=== PATIENT | female | born 2005 | race Hispanic/Latino ===

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

== ENCOUNTER 2024-01-18 00:04 | Emergency (ER) | payer OTHER ==
[2024-01-18 01:06] LABS: Absolute Eosinophils 0.2 K/uL (0-0.5); Absolute Monocytes 0.4 K/uL (0.1-1.3); Basophils % 0.5 % (0-1.3); Hematocrit 33.8 % (36.0-45.0); Hemoglobin 11.5 g/dL (12.0-15.0); MCH 28.1 pg (27.0-35.0); MCHC 34.1 g/dL (32.0-36.0); MCV 82.6 fL (80-100); MPV 11.4 fL (7.6-11.3); Monocytes % 4.7 % (3.3-12.3); Neutrophils % 57.8 % (41.7-73.7); Nucleated Red Blood Cells % 0.1 % (0-0); Platelets 185 thou/uL (152-406); RBC Red Blood Cell Count 4.09 M/uL (3.86-4.86); Red Cell Distribution Width 14.4 % (12.1-15.2)
[2024-01-18 01:15] LABS: PT Prothrombin Time 11.1 SECONDS (9.4-12.5); PTT, Activated Partial Thromb 35.1 SECONDS (24.3-36.9); Protime INR 0.99
[2024-01-18 01:37] LABS: ALT/SGPT 18 U/L (13-56); AST/SGOT 12 U/L (15-37); Albumin 3.2 g/dL (3.4-5.0); Albumin/Globulin Ratio 0.9 (1.1-1.8); Alkaline Phosphatase 66 U/L (45-117); Anion Gap 6.7 mEq/L (5.0-15.0); BUN Blood Urea Nitrogen 16 mg/dL (7-18); Bicarbonate 27 mEq/L (21-32); Bilirubin Total 0.2 mg/dL (0.2-1.0); Globulin 3.5 g/dL (2.3-3.5); Glomerular Filtration Rate 106 ml/min (=/>90); Glucose Level 108 mg/dL (74-106); Potassium 3.7 mEq/L (3.5-5.1); Protein, Total 6.7 g/dL (6.4-8.2); Sodium Level 139 mEq/L (136-145)
[2024-01-18 01:37] LABS: Barbiturates NEGATIVE (NEGATIVE); Benzodiazepines NEGATIVE (NEGATIVE); Cocaine NEGATIVE (NEGATIVE); METHAMPHETAM NEGATIVE (NEGATIVE); Methadone NEGATIVE (NEGATIVE); Opiates NEGATIVE (NEGATIVE); Phencyclidine NEGATIVE (NEGATIVE); THC Cannibis NEGATIVE (NEGATIVE)
[2024-01-18 01:48] LABS: Bilirubin Direct < 0.2 mg/dL (0-0.2)
--- NOTE | 2024-01-18 01:51 | ER ---
Nurse's Notes [facility] Name: Tere Galindo Age: 18 yrs Sex: Female : 2005 Arrival Date: 01/18/2024 Time: 00:04 Bed 15 Private MD: Diagnosis: Homicidal and suicidal ideations Presentation: 01/17 00:06 Chief complaint: EMS states: patient called for help because she has thoughts of rg5 hurting her aunt and she has also stated suicidal ideation. Coronavirus screen: Vaccine status: Patient reports receiving the 1st dose of the Covid vaccine. Client denies travel out of the [place] in the last 14 days. Ebola Screen: Patient negative for fever greater than or equal to 101.5 degrees Fahrenheit, and additional compatible Ebola Virus Disease symptoms. 00:06 Method Of Arrival: EMS: [facility] 5 00:06 Initial Sepsis Screen: Does the patient meet any 2 criteria? No. Patient's initial rg5 sepsis screen is negative. Does the patient have a suspected source of infection? No. Patient's initial sepsis screen is negative. Risk Assessment: Do you want to hurt yourself or someone else? Patient reports desire/thoughts of hurting themselves or someone else. Provider notified. Onset of symptoms was January 17, 2024. 00:06 Acuity: DWAYNE 3 rg5 Triage Assessment: 00:06 General: Appears in no apparent distress. Behavior is calm, cooperative, appropriate rg5 for age. Pain: Denies pain. EENT: No deficits noted. Neuro: Level of Consciousness is awake, alert, obeys commands, Oriented to person, place, time, Reports suicidal ideation. Cardiovascular: Heart tones S1 S2 Capillary refill < 3 seconds Patient's skin is warm and dry. Rhythm is sinus rhythm. Respiratory: Airway is patent Trachea midline Respiratory effort is even, Respiratory pattern is regular, symmetrical, Breath sounds are clear. GI: Abdomen is round Bowel sounds present X 4 quads. : No signs and/or symptoms were reported regarding the genitourinary system. Derm: Skin is intact, Skin is dry, Skin is normal. Musculoskeletal: Circulation, motion, and sensation intact. Range of motion: intact in all extremities. 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 - Infectious Disease History:: Denies. - Social history:: Smoking status: Patient/guardian denies using tobacco, the patient reports quitting approximately 1 years ago. Screenin:06 [facility] ED Fall Risk Assessment (Adult) History of falling in the last 3 months, rg5 including since admission No falls in past 3 months (0 pts) Confusion or Disorientation No (0 pts) Intoxicated or Sedated No (0 pts) Impaired Gait No (0 pts) Mobility Assist Device Used No (0 pt) Altered Elimination No (0 pt) Score/Fall Risk Level 0 - 2 = Low Risk Oriented to surroundings, Maintained a safe environment, Hourly rounding (assess needs \\T\\ fall precautionary measures) done. Abuse screen: Denies threats or abuse. Nutritional screening: No deficits noted. Tuberculosis screening: No symptoms or risk factors identified. Assessment: 01:39 Reassessment: Patient and/or family updated on plan of care and expected duration. Pain rg5 level reassessed. Patient is alert, oriented x 3, equal unlabored respirations, skin warm/dry/pink. Respiratory: Airway is patent Trachea midline Respiratory effort is even, unlabored, Respiratory pattern is regular, symmetrical. 02:30 Reassessment: No changes from previously documented assessment. Patient and/or family rg5 updated on plan of care and expected duration. Pain level reassessed. 02:30 Respiratory: Airway is patent Trachea midline Respiratory effort is even, unlabored, rg5 Respiratory pattern is regular, symmetrical. 04:30 Reassessment: No changes from previously documented assessment. Patient and/or family rg5 updated on plan of care and expected duration. Pain level reassessed. General: Appears in no apparent distress. comfortable. Respiratory: Respiratory effort is even, unlabored, Respiratory pattern is regular, symmetrical. 06:24 Reassessment: Patient and/or family updated on plan of care and expected duration. Pain rg5 level reassessed. Patient is alert, oriented x 3, equal unlabored respirations, skin warm/dry/pink. General: Appears in no apparent distress. comfortable. Respiratory: Airway is patent Trachea midline Respiratory effort is even, unlabored, Respiratory pattern is regular, symmetrical. 07:00 Reassessment: Patient appears in no apparent distress at this time. Pt sleeping w/ ph equal and unlabored respirations. 12:14 Reassessment: Patient appears in no apparent distress at this time. Patient and/or ph family updated on plan of care and expected duration. Pain level reassessed. Patient is alert, oriented x 3, equal unlabored respirations, skin warm/dry/pink. [facility] at bedside, pt transferred to [facility]. Psych: 00:06 [place] Suicide Severity Screening: In the past month, have you wished you were rg5 or wished you could go to sleep and not wake up? Patient responds "yes." "In the past month, have you actually had any thoughts of killing yourself?" Patient responds "yes." "In your lifetime, have you ever done anything, started to do anything, or prepared to do anything to end your life?" Patient responds "yes." Patient reports suicidal intent within 3 past months. 00:06 Subjective: Having thoughts of homicide. Homicidal plan is to hurting with any tools in rg5 the house Homicidal thoughts directed towards her aunt. Objective: Patient is cooperative, Speech is normal, Affect is flat. Interventions: Removed personal items and placed in bag. Patient placed in hospital gown. Searched person for dangerous items. Urine collected and sent for urine drug test. Belonging list filled out. Safety Checks: Personal items have been removed. Door is open. Pt denies substance abuse. 00:06 Commitment: Patient will be a voluntary commitment. [facility] Vital Signs: 00:06 BP 110 / 60; Pulse 76; Resp 17; Temp 98(O); Pulse Ox 100% on R/A; Weight 102.06 kg; rg5 Height 5 ft. 4 in. ; Pain 0/10; 00:06 BP 110 / 60; Pulse 76; Resp 17; Pulse Ox 100% on R/A; Pain 0/10; rg5 01:00 BP 115 / 65; Pulse 70; Resp 17; Pulse Ox 100% on R/A; Pain 0/10; rg5 12:15 BP 112 / 68; Pulse 72; Resp 18; Temp 97.2; Pulse Ox 99% on R/A; ph 00:06 Body Mass Index 38.62 (102.06 kg, 162.56 cm) - Percentile 98.2 % rg5 00:06 Pain Scale: Adult rg5 00:06 Pain Scale: Adult 5 01:00 Pain Scale: Adult [facility] ED Course: 00:05 Patient arrived in ED. jj6 00:06 No provider procedures requiring assistance completed. rg5 00:06 Arm band placed on right wrist. EKG completed in triage. Results shown to MD. rg5 00:06 Patient has correct armband on for positive identification. Bed in low position. Call [facility] light in reach. Side rails up X 1. 00:07 Alexandru Ibarra RN is Primary Nurse. rg5 00:08 Kam Riggs MD is Attending Physician. ec2 00:30 EKG done, by ED staff, reviewed by Kam Riggs MD. oe 00:46 Inserted saline lock: 22 gauge in right antecubital area, using aseptic technique. oe Blood collected. Flushed with 10 mL NS. 01:05 Warm blanket given. oe 01:05 Diet: Patient given snack. Patient given juice. oe 01:27 Triage completed. rg5 01:39 No apparent distress. Resting quietly. Appears to be sleeping. rg5 02:30 No apparent distress. Resting quietly. Appears to be sleeping. rg5 04:03 Patient information faxed to [facility] . ty 04:28 [facility] called for nurse to nurse. ty 04:30 No apparent distress. Resting quietly. Appears restless. transfer approval from [facility] receiving facility. 04:30 Approval given by Tommy Vee. ty 05:13 [facility] contacted for patient transport. ty 05:15 Chey from [facility] called to notify of emergent situation delaying patient ty transfer. 05:16 [facility] contacted to disregard due to placement being postoned. ty 09:12 jaki spoke with Caitie with [facility], they are currently on lock down due to bd having intranet issues and will not be able to take the pt for several hours. 09:15 faxed chart to [facility]. bd 12:16 IV discontinued, intact, bleeding controlled, No redness/swelling at site. Pressure ph dressing applied. Administered Medications: No medications were administered Medication: 00:06 VIS not applicable for this client. rg5 Outcome: 01:50 ER care complete, transfer ordered by . ec2 12:15 Transferred by ground EMS [facility]. Note: [facility] ph 12:15 Condition: good 12:15 Instructed on the need for transfer, 12:16 Patient left the ED. ph Signatures: Linnea Garcia Patricia, RN RN ph To Torres Jennifer jKam Amaral MD MD ec2 Pasquale Powers Rommel, RN RN rg5 Corrections: (The following items were deleted from the chart) 01:04 01:02 EKG done, by ED staff, reviewed by Kam deluna oe 05:19 05:13 [facility] called for patient transport ty ty 05:20 05:13 [facility] called for patient transport ty ty
--- NOTE | 2024-01-18 01:51 | EDPHYS ---
Physician Documentation [facility] Name: Tere Galindo Age: 18 yrs Sex: Female : 2005 Arrival Date: 01/18/2024 Time: 00:04 Bed 15 Private MD: ED Physician Kam Riggs HPI: 01/17 00:47 This 18 yrs old Female presents to ER via Unassigned with complaints of ec2 Homicidal Ideation. 00:47 Patient arrives today for reported homicidal and suicidal ideation. Patient reports ec2 that she feels like killing her aunt. Patient reports that she has had this thoughts on and off before, no specific exacerbating factor today. Patient also reports suicidal ideation. Reports that she has not tried to harm herself. Patient reports otherwise no complaints history of bipolar as well as schizophrenia. 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 - Infectious Disease History:: Denies. - Social history:: Smoking status: Patient/guardian denies using tobacco, the patient reports quitting approximately 1 years ago. ROS: 00:49 Constitutional: as per hpi ec2 Exam: 00:49 Constitutional: GEN: NAD Head: atraumatic Eyes: EOMI Ears: External ears are ec2 normal. CV: regular rate LUNGS: no respiratory distress ABD: non-distended SKIN: no evidence of rashes MSK: no evidence of trauma. Psych: Cooperative individual who endorses homicidality and suicidality Vital Signs: 00:06 BP 110 / 60; Pulse 76; Resp 17; Temp 98(O); Pulse Ox 100% on R/A; Weight 102.06 kg; rg5 Height 5 ft. 4 in. ; Pain 0/10; 00:06 BP 110 / 60; Pulse 76; Resp 17; Pulse Ox 100% on R/A; Pain 0/10; rg5 01:00 BP 115 / 65; Pulse 70; Resp 17; Pulse Ox 100% on R/A; Pain 0/10; rg5 12:15 BP 112 / 68; Pulse 72; Resp 18; Temp 97.2; Pulse Ox 99% on R/A; ph 00:06 Body Mass Index 38.62 (102.06 kg, 162.56 cm) - Percentile 98.2 % rg5 00:06 Pain Scale: Adult rg5 00:06 Pain Scale: Adult rg5 01:00 Pain Scale: Adult rg5 MDM: 00:11 Medical Screening Exam initiated ec2 00:49 Data reviewed: vital signs. ED course: Patient arrives today for thoughts of harming ec2 self and others. Examination remarkable for cooperative individual was otherwise in no acute distress with a reassuring examination who endorses homicide and suicidality. EKG obtained, independently reviewed and interpreted by me, shows normal sinus rhythm, rate 64, no acute ST segment elevations, intervals are nonactionable. Will obtain toxic workup. Will attempt to transfer to psychiatric facility.. 01:50 ED course: Labs are nonactionable. Patient appropriate for transfer. . ec2 01/17 00:09 Order name: Acetaminophen; Complete Time: ec2 01/17 00:09 Order name: Basic Metabolic Panel; Complete Time: ec2 01/17 00:09 Order name: CBC with Diff; Complete Time: ec2 01/17 00:09 Order name: ETOH Level; Complete Time: ec2 01/17 00:09 Order name: Hepatic Function; Complete Time: ec2 01/17 00:09 Order name: PT-INR; Complete Time: 50 ec2 01/17 00:09 Order name: Ptt, Activated; Complete Time: ec2 01/17 00:09 Order name: Salicylate; Complete Time: ec2 01/17 00:09 Order name: Urine Drug Screen; Complete Time: :50 ec2 01/17 00:09 Order name: EKG; Complete Time: 00:09 ec2 01/17 00:09 Order name: EKG - Nurse/Tech; Complete Time: 00:53 ec2 01/17 00:09 Order name: IV Saline Lock; Complete Time: 00:53 ec2 01/17 00:09 Order name: Labs collected and sent; Complete Time: 00:54 ec2 01/17 00:09 Order name: Suicide Precautions; Complete Time: 02:03 ec2 01/17 00:09 Order name: Suicide Screening ([place]); Complete Time: 02:03 ec2 Administered Medications: No medications were administered Disposition Summary: 01/18/24 01:50 Transfer Ordered Notes: Transfer Location: [facility] ec2 Reason: Higher level of care ec2 Condition: Stable ec2 Problem: an ongoing problem ec2 Symptoms: are unchanged ec2 Accepting Physician: Glenn Perea(01/18/24 12:16) ph Diagnosis - Homicidal and suicidal ideations ec2 Forms: - Medication Reconciliation Form ec2 - SBAR form ec2 Signatures: Dispatcher [employer] Vanessa Evans RN RN ph Kam Riggs MD MD ec2 Pasquale Powers Rommel, RN RN rg5 Corrections: (The following items were deleted from the chart) 00:09 00:09 ACETAMINOPHEN+C.LAB.BRZ ordered. EDMS EDMS 00:09 00:09 BASIC METABOLIC PANEL+C.LAB.BRZ ordered. EDMS EDMS 00:09 00:09 CBC+H.LAB.BRZ ordered. EDMS EDMS 00:09 00:09 ETHANOL+C.LAB.BRZ ordered. EDMS EDMS 00:09 00:09 HEPATIC FUNCTION+C.LAB.BRZ ordered. EDMS EDMS 00:09 00:09 PROTIME (+INR)+COAG.LAB.BRZ ordered. EDMS EDMS 00:09 00:09 PTT, ACTIVATED+COAG.LAB.BRZ ordered. EDMS EDMS 00:09 00:09 SALICYLATE+C.LAB.BRZ ordered. EDMS EDMS 00:09 00:09 URINE DRUG SCREEN+UC.LAB.BRZ ordered. EDMS EDMS 04:50 01:50 transferring doc ec2 ty 12:16 04:50 Glenn Perea ty ph
[2024-01-18 12:42] VITALS: BP 112/68; TEMP 97.2; O2SAT 99
--- NOTE | 2024-01-19 14:52 | EKG ---
Test Date: 2024-01-18 Test Time: 00:41:30 Mobile Equipment Servicer: CHAN MEASUREMENT RESULTS: Intervals: Rate: 64 KS: 136 QRSD: 86 QT: 416 QTc: 429 [place]: P: 59 KS: 136 QRS: 39 T: 37 INTERPRETIVE STATEMENTS: Normal sinus rhythm with sinus arrhythmia Normal ECG Compared to ECG 12/30/2023 12:22:46 No significant changes Electronically Signed On 01-19-24 14:47:00 CDT by Ciaran Douglas
== END 2024-01-18 12:16 ==
LOC: ER 00:04
DX: R45.850 Homicidal ideations (principal); R45.851 Suicidal ideations; F20.9 Schizophrenia, unspecified
CPT/HCPCS: 36415; 80048; 80076; 80143; 80179; 80307; 82077; 85025; 85610; 85730; 93005

== ENCOUNTER 2024-06-20 15:50 | Emergency (ER) | payer OTHER ==
--- OUTSIDE RECORDS SUMMARY | 2024-06-20 15:55 | XMS REPORT | Continuity of Care Document ---
Author Name Unknown Address [address] [facility] [address] [place] [address] [facility] Address [address] [facility] [address] [place] [address] Care Team Providers Care Government Instructor Name Role Phone Gerry SHERYLArronNahum Primary Care Physician Raymond Suarez Attending Clinician Unavailable Johanne MORA, Maida Thomas Attending Clinician UnavailElmer Doyle NP Attending Clinician [phone] ELMER MADDOX Attending Clinician Unavailable ELMER MADDOX Attending Clinician Unavailable Unknown, Attending Attending Clinician UnavailRUBA Red Attending Clinician UnavailDAVID Rosales Attending Clinician Unavailable SUGEY LOJA Attending Clinician Unavailable Jessie Reinoso LCSW Attending Clinician [phone] David Norris Attending Clinician [phone], [facility] Attending Clinician Unavailable UMU SAGASTUME Attending Clinician UnavailMaximus Reese Attending Clinician Unavailable Umu Sagastume MD Attending Clinician [phone] Doctor Unassigned, [place] Attending Clinician U AKBAR Pina Attending Clinician Unavailable YESIKA HANDY Attending Clinician Unavailable JANAY JULIEN Attending Clinician Unavailable Janay Julien MD Attending Clinician [phone] MEHRAN BENNETT Attending Clinician Unavaila [facility] Pcp, Patient Does Not Have A Attending Clinician Physician, No Primary or Family Admitting Clinic morro Unavailable UMU SAGASTUME Admitting Clinician Unavaildavid valdivia Payers Payer Name Policy Type Policy Number Effective Date Expirati on Date Source MEDICAID CI [id number] [facility] D [id number] [facility] [id number] 2023 00:00:00 [facility] [id number] 2022 00:00:00 Problems Condition Name Condition Details Condition Category Status Onset Date Resolution Date Last Treatment Date Treating Clinician Comments Source ALTERED MENTAL STATE ALTERED MENTAL STATE Active 09/22/2023 Lauren Jones Diagnosis Active 09-21 00:00: 00 2023-10-01 12:58:00 Montserrat Jones Allergies, Adverse Reactions, Alerts Allergy Name Allergy Type Status Severity Reaction(s) Onset Date Inactive Date Treating Clinician Comments Source No Known Allergie s DA Active U 2019-03 00:00: 00 [facility] No Known Allergie s DA Active U 2018-03 0 00:00: 00 [facility] NO KNOWN ALLERGIE S Drug Class Active [facility] Social History Social Habit Start Date Stop Date Quantity Comments Source Gender [facility] Alcoholic beverage intake 2023-11-25 00:00:00 2023-11-25 00:00:00 Ex-drinker (finding) [facility] Alcohol intake 2023-01-04 00:00:00 2023-01-04 00:00:00 Ex-drinker (finding) [facility] Exposure to SARS-CoV-2 (event) 2022-07-10 00:00:00 2022-07-20 10:33:00 Not sure [facility] History of Social function 2022-07-03 00:00:00 2022-07-03 00:00:00 [facility] Tobacco use and exposure 2022-07-03 00:00:00 2022-07-03 00:00:00 Smokeless tobacco non-user [facility] Sex assigned at 2004 00:00:00 2005 00:00:00 [facility] Smoking Status Start Date Stop Date Source Social History [facility] Never smoked tobacco [facility] Medications Ordered Medication Name Filled Medication Name Start Date Stop Date Current Medication? Ordering Clinician Indication Dosage Frequency Signature (SIG) Comments Components Source levothyroxi ne 50 mcg tablet - 00:00: 00 Yes 1mcg Familia Ahuja sertraline 100 mg tablet - 00:00: 00 Yes 1mg Familia Ahuja trazodone 50 mg tablet - 00:00: 00 Yes 1mg Familia Ahuja buspirone 10 mg tablet - 00:00: 00 Yes 1mg Familia Ahuja oxcarbazepi ne 300 mg tablet - 00:00: 00 Yes 1mg Familia Ahuja oxcarbazepi ne 600 mg tablet 3- 00:00: 00 Yes 1mg Familia Ahuja Abilify 20 mg tablet - 00:00: 00 Yes 1mg Familia Ahuja sertraline 100 mg tablet 2- 00:00: 00 Yes 1mg Familia Donal Ahuja trazodone 50 mg tablet 2- 00:00: 00 Yes 1mg Familia Ahuja buspirone 10 mg tablet 2- 00:00: 00 Yes 1mg Familia Ahuja oxcarbazepi ne 300 mg tablet 2- 00:00: 00 Yes 1mg Familia Ahuja oxcarbazepi ne 600 mg tablet 2- 00:00: 00 Yes 1mg Familia Ahuja Abilify 20 mg tablet 2- 00:00: 00 Yes 1mg Familia Ahjua levothyroxi ne 50 mcg tablet 1- 00:00: 00 Yes 1mcg Familia Ahuja levothyroxi ne 50 mcg tablet - 00:00: 00 Yes 1mcg Familia Ahuja clindamycin HCl 300 mg capsule - 00:00: 00 Yes 1mg Familia Ahuja sertraline 100 mg tablet 1- 00:00: 00 Yes 1mg Familia Ahuja trazodone 50 mg tablet 1- 00:00: 00 Yes 1mg Familia Ahuja buspirone 10 mg tablet 1- 00:00: 00 Yes 1mg Familia Ahuja oxcarbazepi ne 300 mg tablet 1- 00:00: 00 Yes 1mg Familia Ahuja oxcarbazepi ne 600 mg tablet 1-05 00:00: 00 Yes 1mg Familia Ahuja Abilify 20 mg tablet 1- 00:00: 00 Yes 1mg Familia Ahuja levothyroxi ne 25 mcg tablet 2023-03 2- 00:00: 00 Yes 1mcg Familia Ahuja sertraline 100 mg tablet 2023-03 2- 00:00: 00 Yes 1mg Familia Ahuja trazodone 50 mg tablet 2023-03 2- 00:00: 00 Yes 1mg Familia Ahuja buspirone 10 mg tablet 2023-03 2- 00:00: 00 Yes 1mg Familia Ahuja oxcarbazepi ne 300 mg tablet 2023-03 2- 00:00: 00 Yes 1mg Familia Ahuja oxcarbazepi ne 600 mg tablet 2023-03 2- 00:00: 00 Yes 1mg Familia Ahuja Abilify 20 mg tablet 2023-03 2-08 00:00: 00 Yes 1mg Familia Ahuja sertraline 100 mg tablet 2023-03 0- 00:00: 00 Yes 1mg Familia Ahuja Abilify 20 mg tablet 2023-03 0- 00:00: 00 Yes 1mg Familia Ahuja oxcarbazepi ne 150 mg tablet 2023-03 0-25 00:00: 00 Yes 1mg Familia Ahuja trazodone 50 mg tablet 2023-03 0- 00:00: 00 Yes 1mg Familia Ahuja buspirone 5 mg tablet 2023-03 0 00:00: 00 Yes 1mg Familia Ahuja albuterol sulfate HFA 90 mcg/actuati on aerosol inhaler 2023-03 00:00: 00 Yes 1mcg/ac tuation Familia Ahuja levothyroxi ne 25 mcg tablet 2023-03 00:00: 00 Yes 1mcg Familia Ahuja sertraline 100 mg tablet 2023-03 0 00:00: 00 Yes 1mg Familia Ahuja oxcarbazepi ne 150 mg tablet 2023-03 0 00:00: 00 Yes 1mg Familia Ahuja trazodone 50 mg tablet 2023-03 0 00:00: 00 Yes 1mg Familia Ahuja Abilify 15 mg tablet 2023-03 0 00:00: 00 Yes 1mg Familia Ahuja buspirone 5 mg tablet 2023-03 0 00:00: 00 Yes 1mg Familia Ahuja sulfamethox azole-trime thoprim (BACTRIM DS) 800-160 mg per tablet 11-25 00:00: 00 Yes [id number] 1{tbl} Take 1 tablet by mouth in the morning and 1 tablet in the evening. [facility] ascorbic acid (VITAMIN C ORAL) 11-24 19:58: 18 Yes .6mg Take by mouth. [facility] haloperidoL 10 mg tablet 11-24 19:58: 18 Yes 10mg Take 1 tablet by mouth. [facility] hydrOXYzine 50 mg capsule 11-24 19:58: 18 Yes 50mg Take 1 capsule by mouth 3 (three) times daily as needed for Itching. [facility] Zinc 50 mg Tab 11-24 19:58: 18 Yes Take by mouth. [facility] OLANZapine 10 mg tablet 11-24 19:58: 18 Yes 10mg Take 1 tablet by mouth in the morning. [facility] sulfamethox azole-trime thoprim (BACTRIM DS) 800-160 mg per tablet 11-24 00:00: 00 11-25 00:00 :00 No [id number] 1{tbl} Take 1 tablet by mouth in the morning and 1 tablet in the evening. Do all this for 7 days. [facility] mupirocin 2 % topical ointment 11-23 00:00: 00 Yes 1% Familia Ahuja hydroxyzine HCl 25 mg tablet 11-16 00:00: 00 Yes mg Familia Donal Ahuja sertraline 100 mg tablet 11-16 00:00: 00 Yes 1mg Familia Donal Ahuja aripiprazol e 10 mg tablet 11-16 00:00: 00 Yes 1mg Familia Ahuja ARIPiprazol e 10 mg tablet 11-16 00:00: 00 Yes 10mg Take 1 tablet by mouth at bedtime. [facility] hydroxyzine HCl 25 mg tablet 10-15 00:00: 00 Yes mg Familia Donal Ahuja sertraline 100 mg tablet 10-15 00:00: 00 Yes 1mg Familia Donal Ahuja aripiprazol e 10 mg tablet 10-15 00:00: 00 Yes 1mg Familia Donal Ahuja sertraline 100 mg tablet 09-30 00:00: 00 Yes mg Familia Donal Ahuja aripiprazol e 10 mg tablet 09-30 00:00: 00 Yes mg Familia Donal Ahuja aripiprazol e 5 mg tablet 09-21 00:00: 00 Yes 1mg Familia Ahuja trazodone 50 mg tablet 09-21 00:00: 00 Yes 51mg Familia Ahuja fluoxetine 20 mg capsule 09-21 00:00: 00 Yes 1mg Familia Ahuja TAKE ONE TABLET BY MOUTH UP TO THREE TIMES A DAY FOR ANXIETY AND SLEEP NEEDED 2022-03 00:00: 00 Yes Familia Ahuja TAKE 1 CAPSULE ONCE DAILY IN THE EVENING. 2022-03 00:00: 00 11-23 00:00 :00 No 625 Familia Ahuja TAKE 1 TABLET AT BEDTIME. 2022-03 00:00: 00 11-23 00:00 :00 No 2 Familia Ahuja OLANZapine 10 mg tablet 2022-03 10:53: 46 Yes 10mg Take 1 tablet by mouth in the morning. [facility] OLANZapine 20 mg tablet 2022-03 10:53: 32 01-04 00:00 :00 No 20mg Take 1 tablet by mouth at bedtime. [facility] metFORMIN 1,000 mg 24 hr tablet 2022-03 10:36: 20 01-04 00:00 :00 No 1000mg Take 1 tablet by mouth in the morning and 1 tablet in the evening. Take with meals. [facility] hydrOXYzine 50 mg capsule 2022-03 10:36: 19 Yes 50mg Take 1 capsule by mouth 3 (three) times daily as needed for Itching. [facility] OLANZapine 10 mg tablet 2022-03 10:36: 17 01-04 00:00 :00 No 10mg Take 1 tablet by mouth in the morning. [facility] polyethylen e glycol 3350 (MIRALAX) 17 gram/dose powder 2022-03 10:35: 58 01-04 00:00 :00 No 17g Take 17 g by mouth in the morning. [facility] prazosin HCl (PRAZOSIN ORAL) 2022-03 10:35: 55 01-04 00:00 :00 No 8mg Take 8 mg by mouth in the morning. [facility] traZODone 50 mg tablet 2023-1 0-16 10:35: 49 01-04 00:00 :00 No 50mg Take 1 tablet by mouth at bedtime. [facility] traZODone 100 mg tablet 2022-03 10:35: 45 01-04 00:00 :00 No 100mg Take 1 tablet by mouth at bedtime. [facility] divalproex ER 500 mg 24 hr tablet 2022-03 10:35: 11 01-04 00:00 :00 No 1000mg Take 2 tablets by mouth every 24 (twenty-fo ur) hours. [facility] TAKE 1 TABLET BY MOUTH EVERYDAY AT BEDTIME 2022-03 00:00: 00 Yes Familia Ahuja TAKE ONE CAPSULE BY MOUTH AT BEDTIME 2022-03 00:00: 00 11-23 00:00 :00 No 2 Familia hAuja OLANZA/FLUO X 6-25MG 12-07 00:00: 00 Yes Familia Ahuja TAKE ONE TABLET BY MOUTH UP TO THREE TIMES A DAY FOR ANXIETY AND SLEEP NEEDED 12-07 00:00: 00 11-23 00:00 :00 No 50 Familia Ahuja TAKE 1 CAPSULE ONCE DAILY IN THE EVENING. 12-07 00:00: 00 11-23 00:00 :00 No 625 Familia Ahuja LYBALVI 20-10MG 09-04 00:00: 00 Yes Familia Ahuja TAKE 4 CAPSULES BY MOUTH AT BEDTIME FOR NIGHTMARES 09-03 00:00: 00 Yes Familia Ahuja TAKE 1 TO 2 TABLETS BY MOUTH AT BEDTIME 09-03 00:00: 00 Yes Familia Ahuja TAKE 1 TABLET BY MOUTH TWICE A DAY FOR MOOD 09-03 00:00: 00 Yes Familia Ahuja TAKE 3 TABLETS BY MOUTH AT BEDTIME 09-03 00:00: 00 Yes Familia Ahuja HALOPERIDOL 10MG 09-03 00:00: 00 11-23 00:00 :00 No Familia Donal Ahuja levothyroxi ne (SYNTHROID) 75 mcg tablet 07-23 00:00: 00 Yes [id number] 75ug Take 1 tablet by mouth every morning. [facility] LEVOTHYROXI N 75MCG 07-23 00:00: 00 11-23 00:00 :00 No Familia Ahuja BUPROP 24 XL 300MG 07-23 00:00: 00 11-23 00:00 :00 No Familia Ahuja buPROPion XL (WELLBUTRIN XL) 300 mg 24 hr tablet 07-23 00:00: 00 01-04 00:00 :00 No [id number] 300mg Take 1 tablet by mouth in the morning. [facility] buPROPion XL (WELLBUTRIN XL) 150 mg 24 hr tablet 07-23 00:00: 00 07-23 00:00 :00 No [id number] 150mg Take 1 tablet by mouth in the morning and 1 tablet in the evening. [facility] traZODone 50 mg tablet 07-20 10:40: 37 Yes 50mg Take 1 tablet by mouth at bedtime. [facility] traZODone 100 mg tablet 07-20 10:39: 45 Yes 100mg Take 1 tablet by mouth at bedtime. [facility] hydrOXYzine 50 mg capsule 07-20 10:39: 45 Yes 50mg Take 1 capsule by mouth 3 (three) times daily as needed for Itching. [facility] OLANZapine 20 mg tablet 07-20 10:37: 48 Yes 20mg Take 1 tablet by mouth at bedtime. [facility] OLANZapine 10 mg tablet 07-20 10:37: 48 Yes 10mg Take 1 tablet by mouth in the morning. [facility] LYBALVI 20-10MG 07-20 00:00: 00 11-23 00:00 :00 Rama Ahuja TAKE 4 CAPSULES BY MOUTH AT BEDTIME FOR NIGHTMARES 07-14 00:00: 00 11-23 00:00 :00 Rama Ahuja TAKE 1 TO 2 TABLETS BY MOUTH AT BEDTIME 07-14 00:00: 00 11-23 00:00 :00 No Familia Ahuja DIVALPROEX 500MG DR 07-14 00:00: 00 11-23 00:00 :00 No Familia Ahuja TAKE 3 TABLETS BY MOUTH AT BEDTIME 07-14 00:00: 00 11-23 00:00 :00 No Familia Ahuja LYBALVI 20-10 MG 07-14 00:00: 00 11-23 00:00 :00 No Familia Ahuja metFORMIN 1,000 mg 24 hr tablet 07-03 09:37: 07 Yes 1000mg Take 1 tablet by mouth in the morning and 1 tablet in the evening. Take with meals. [facility] divalproex ER 500 mg 24 hr tablet 07-03 09:37: 07 Yes 1000mg Take 2 tablets by mouth every 24 (twenty-fo ur) hours. [facility] prazosin HCl (PRAZOSIN ORAL) 07-03 09:17: 01 Yes 8mg Take 8 mg by mouth in the morning. [facility] OLANZapine (ZYPREXA) 20 mg tablet 07-03 09:17: 01 Yes 20mg Take 1 tablet by mouth at bedtime. [facility] OLANZapine (ZYPREXA) 10 mg tablet 07-03 09:17: 01 Yes 10mg Take 1 tablet by mouth in the morning. [facility] desmopressi n acetate (DDAVP ORAL) 07-03 09:17: 01 Yes .6mg Take 0.6 mg by mouth in the morning. [facility] haloperidoL 10 mg tablet 07-03 09:17: 01 Yes 10mg Take 1 tablet by mouth. [facility] traZODone 100 mg tablet 07-03 09:17: 01 Yes 100mg Take 1 tablet by mouth at bedtime. [facility] hydrOXYzine (VISTARIL) 50 mg capsule 07-03 09:17: 01 Yes 50mg Take 1 capsule by mouth 3 (three) times daily as needed for Itching. [facility] Zinc 50 mg Tab 07-03 09:17: 01 Yes Take by mouth. [facility] Zinc 50 mg Tab 07-03 09:17: 01 Yes Take by mouth. [facility] polyethylen e glycol 3350 (MIRALAX) 17 gram/dose powder 07-03 09:12: 49 Yes 17g Take 17 g by mouth in the morning. [facility] TAKE 1 TABLET BY MOUTH EVERY DAY IN THE MORNING 07-03 00:00: 00 11-23 00:00 :00 No Familia Ahuja levothyroxi ne 100 mcg tablet 07-03 00:00: 00 07-23 00:00 :00 No [id number] 100ug Take 1 tablet by mouth every morning. [facility] Dose Unknown 09-26 00:00: 00 Yes Familia Ahuja Dose Unknown 09-26 00:00: 00 Yes Familia Ahuja Dose Unknown 09-26 00:00: 00 Yes Familia Ahuja Wellbutrin XL 150 mg 24 hr tablet, extended release 09-11 00:00: 00 Yes 1mg Familia Ahuja Dose Unknown 09-11 00:00: 00 Yes Familia Ahuja Dose Unknown 09-11 00:00: 00 Yes Familia Ahuja Abilify 10 mg tablet 08-16 00:00: 00 Yes 1mg Familia Ahuja benztropine 0.5 mg tablet 08-16 00:00: 00 Yes 1mg Familia Ahuja clonidine HCl 0.1 mg tablet 08-16 00:00: 00 Yes 1mg Familia Ahuja Prozac 10 mg capsule 08-16 00:00: 00 Yes 1mg Familia Ahuja Abilify 5 mg tablet 08-02 00:00: 00 Yes 1mg Familia Ahuja benztropine 0.5 mg tablet 08-02 00:00: 00 Yes 1mg Familia Ahuja risperidone 1 mg tablet 08-02 00:00: 00 Yes 1mg Familia Ahuja clonidine HCl 0.1 mg tablet 08-02 00:00: 00 Yes 1mg Familia Ahuja Prozac 10 mg capsule 08-02 00:00: 00 Yes 1mg Familia hAuja Dose Unknown 07-03 00:00: 00 Yes Familia Ahuja risperidone 0.5 mg tablet 07-03 00:00: 00 Yes 1mg Familia Ahuja benztropine 0.5 mg tablet 07-03 00:00: 00 Yes 1mg Familia Ahuja clonidine HCl 0.1 mg tablet 07-03 00:00: 00 Yes 1mg Familia Ahuja risperidone 2 mg tablet 07-03 00:00: 00 Yes 1mg Familia Ahuja Dose Unknown 07-03 00:00: 00 Yes Familia Ahuja Prozac 10 mg capsule 07-03 00:00: 00 Yes 1mg Familia Ahuja Abilify 10 mg tablet 05-28 00:00: 00 Yes 1mg Familia Ahuja Depakote ER 250 mg tablet,exte nded release 05-28 00:00: 00 Yes 1mg Familia Ahuja guanfacine 1 mg tablet 05-28 00:00: 00 Yes 15mg Familia Ahuja Depakote 500 mg tablet,shireen yed release 05-28 00:00: 00 Yes 1mg Familia Ahuja Depakote ER 250 mg tablet,exte nded release 04-30 00:00: 00 Yes 1mg Familia Ahuja guanfacine 1 mg tablet 04-30 00:00: 00 Yes 15mg Familia Ahuja Abilify 10 mg tablet 04-30 00:00: 00 Yes 1mg Familia hAuja Depakote 500 mg tablet,shireen yed release 04-30 00:00: 00 Yes 1mg Familia Ahuja levothyroxi ne 100 mcg tablet 04-10 00:00: 00 07-03 00:00 :00 No 100ug Take 1 tablet by mouth every morning. [facility] ABILIFY 10 mg tablet - 00:00: 00 07-03 00:00 :00 No [facility] Abilify 10 mg tablet 03-26 00:00: 00 Yes 1mg Familia Ahuja guanfacine 1 mg tablet 03-26 00:00: 00 Yes 15mg Familia Ahuja Depakote ER 250 mg tablet,exte nded release 03-26 00:00: 00 Yes 1mg Familia Ahuja Depakote 500 mg tablet,shireen yed release 03-26 00:00: 00 Yes 1mg Familia Ahuja divalproex ER 250 mg 24 hr tablet 03-26 00:00: 00 07-03 00:00 :00 No [facility] divalproex 500 mg EC tablet 03-26 00:00: 00 07-03 00:00 :00 No 1000mg Take 2 tablets by mouth. [facility] guanFACINE 1 mg tablet 03-26 00:00: 00 07-03 00:00 :00 No [facility] Abilify 10 mg tablet 2015-03 00:00: 00 Yes 1mg Familia Ahuja Depakote ER 250 mg tablet,exte nded release 2015-03 00:00: 00 Yes 1mg Familia Ahuja guanfacine 1 mg tablet 2015-03 00:00: 00 Yes 15mg Familia Ahuja Depakote 500 mg tablet,shireen yed release 2015-03 00:00: 00 Yes 1mg Familia Ahuja Synthroid 50 mcg tablet 2015-03 00:00: 00 Yes 1mcg Familia Ahuja Immunizations Ordered Immunization Name Filled Immunization Name Date Status Comments Source Influenza, seasonal, inj Influenza, seasonal, inj 2019-01-23 00:00:00 Completed Familia Ahuja influenza, injectable influenza, injectable 2017-02-04 00:00:00 Completed Familia Ahuja HPV9 HPV9 2017-02-04 00:00:00 Completed Familia Ahuja HPV9 HPV9 2016-01-30 00:00:00 Completed Familia Ahuja meningococcal MCV4P meningococcal MCV4P 00:00:00 Completed Familia Ahuja Tdap Tdap 2016-01-30 00:00:00 Completed Familia Ahuja IPV IPV 2008-07-09 00:00:00 Completed Familia Ahuja DTaP, unspecified formul DTaP, unspecified formul 2008-07-09 00:00:00 Completed Familia Ahuja Hep A, ped/adol, 2 dose Hep A, ped/adol, 2 dose 2008-03-07 00:00:00 Completed Familia Ahuja Hib (PRP-T) Hib (PRP-T) 2006-07-02 00:00:00 Completed Familia Ahuja MMRV MMRV 2006-07-02 00:00:00 Completed Familia Ahuja pneumococcal conjugate P pneumococcal conjugate P 2006-07-02 00:00:00 Completed Familia Ahuja DTaP-Hep B-IPV DTaP-Hep B-IPV 2006-07-02 00:00:00 Completed Familia Ahuja Hep A, ped/adol, 2 dose Hep A, ped/adol, 2 dose 2005-09-10 00:00:00 Completed Familia Donal Ahuja Hib (PRP-T) Hib (PRP-T) 2005-09-10 00:00:00 Completed Faimlia Ahuja MMR MMR 2005-09-10 00:00:00 Completed Familia Donal Ahuja pneumococcal conjugate P pneumococcal conjugate P 2005-09-10 00:00:00 Completed Familia Donal Ahuja varicella varicella 2005-09-10 00:00:00 Completed Familia Ahuja DTaP-Hep B-IPV DTaP-Hep B-IPV 2005-09-10 00:00:00 Completed Familia Donal Seymour Hib (PRP-T) Hib (PRP-T) 2005-05-13 00:00:00 Completed Familia Donal Seymour pneumococcal conjugate P pneumococcal conjugate P 2005-05-13 00:00:00 Completed Familia Donal Seymour DTaP-Hep B-IPV DTaP-Hep B-IPV 2005-05-13 00:00:00 Completed Familia Donal Seymour Hib (PRP-T) Hib (PRP-T) 2004 00:00:00 Completed Familia Donal Seymour pneumococcal conjugate P pneumococcal conjugate P 2004 00:00:00 Completed Familia Donal Seymour DTaP-Hep B-IPV DTaP-Hep B-IPV 2004 00:00:00 Completed Familia Donal Ahuja Hib (PRP-T) Hib (PRP-T) 2004 00:00:00 Completed Familia Ahuja pneumococcal conjugate P pneumococcal conjugate P 2004 00:00:00 Completed Familia Ahuja DTaP-Hep B-IPV DTaP-Hep B-IPV 2004 00:00:00 Completed Familia Ahuja Hep B, adolescent or ped Hep B, adolescent or ped 2004 00:00:00 Completed Familia Ahuja diphtheria/pertussis , acel/tetanus adult Unknown Completed Montserrat Jones diphtheria/pertussis , acel/tetanus adult Unknown Completed Montserrat Jones diphtheria/pertussis , acel/tetanus adult Unknown Completed Montserrat Jones Vital Signs Vital Name Observation Time Observation Value Comments S dwaine Systolic blood pressure 2023-11-26 00:58:00 118 mm[Hg] [facility] Diastolic blood pressure 2023-11-26 00:58:00 73 mm[Hg] [facility] Heart rate 2023-11-26 00:58:00 77 /min [facility] Body temperature 2023-11-26 00:58:00 36.39 Ramona [facility] Respiratory rate 2023-11-26 00:58:00 18 /min [facility] Body weight 2023-11-26 00:58:00 102.059 kg [facility] Oxygen saturation in Arterial blood by Pulse oximetry 2023-11-26 00:58:00 98 /min [facility] Systolic blood pressure 2023-01-04 15:24:00 131 mm[Hg] [facility] Diastolic blood pressure 2023-01-04 15:24:00 76 mm[Hg] [facility] Heart rate 2023-01-04 15:24:00 83 /min [facility] Body temperature 2023-01-04 15:24:00 37.17 Ramona [facility] Respiratory rate 2023-01-04 15:24:00 16 /min [facility] Body weight 2023-01-04 15:24:00 96.798 kg [facility] Oxygen saturation in Arterial blood by Pulse oximetry 2023-01-04 15:24:00 97 /min [facility] Systolic blood pressure 2022-12-04 18:17:00 125 mm[Hg] [facility] Diastolic blood pressure 2022-12-04 18:17:00 82 mm[Hg] [facility] Heart rate 2022-12-04 18:17:00 92 /min [facility] Body temperature 2022-12-04 18:17:00 35.94 Ramona [facility] Body height 2022-12-04 18:17:00 160 cm [facility] Body weight 2022-12-04 18:17:00 95.346 kg [facility] BMI 2022-12-04 18:17:00 37.24 kg/m2 [facility] Body mass index (BMI) [Percentile] Per age and sex 2022-12-04 18:17:00 98.18 % [facility] Oxygen saturation in Arterial blood by Pulse oximetry 2022-12-04 18:17:00 97 /min [facility] Systolic blood pressure 2022-07-20 15:33:00 118 mm[Hg] [facility] Diastolic blood pressure 2022-07-20 15:33:00 79 mm[Hg] [facility] Heart rate 2022-07-20 15:33:00 88 /min [facility] Body temperature 2022-07-20 15:33:00 36 Ramona [facility] Respiratory rate 2022-07-20 15:33:00 16 /min [facility] Body height 2022-07-20 15:33:00 162.6 cm [facility] Body weight 2022-07-20 15:33:00 106.958 kg [facility] BMI 2022-07-20 15:33:00 40.47 kg/m2 [facility] Body mass index (BMI) [Percentile] Per age and sex 2022-07-20 15:33:00 98.86 % [facility] Oxygen saturation in Arterial blood by Pulse oximetry 2022-07-20 15:33:00 98 /min [facility] Systolic blood pressure 2022-07-03 14:08:00 102 mm[Hg] [facility] Diastolic blood pressure 2022-07-03 14:08:00 71 mm[Hg] [facility] Heart rate 2022-07-03 14:08:00 96 /min [facility] Body temperature 2022-07-03 14:08:00 36.44 Ramona [facility] Respiratory rate 2022-07-03 14:08:00 18 /min [facility] Body height 2022-07-03 14:08:00 162.6 cm [facility] Body weight 2022-07-03 14:08:00 103.148 kg [facility] BMI 2022-07-03 14:08:00 39.03 kg/m2 [facility] Body mass index (BMI) [Percentile] Per age and sex 2022-07-03 14:08:00 98.68 % [facility] Oxygen saturation in Arterial blood by Pulse oximetry 2022-07-03 14:08:00 100 /min [facility] BP Systolic 2024-06-10 13:21:00 106 mm[Hg] Step hen F Seymour BP Diastolic 2024-06-10 13:21:00 73 mm[Hg] Doc phen F Seymour Weight Measured 2024-06-10 13:21:00 241.40 pounds Familia F Seymour Height Measured 2024-06-10 13:21:00 60.00 inches Familia F Seymour Body Temperature 2024-06-10 13:21:00 97.70 degrees Familia F Seymour Heart Rate 2024-06-10 13:21:00 96.00 /min Mikki en F Seymour Respiratory Rate 2024-06-10 13:21:00 18.00 /min Familia F Seymour BP Systolic 2024-04-08 10:34:00 103 mm[Hg] Step hen F Seymour BP Diastolic 2024-04-08 10:34:00 71 mm[Hg] Doc phen F Seymour Weight Measured 2024-04-08 10:34:00 241.00 pounds Familia F Seymour Height Measured 2024-04-08 10:34:00 60.00 inches Familia F Seymour Body Temperature 2024-04-08 10:34:00 98.10 degrees Familia F Seymour Heart Rate 2024-04-08 10:34:00 83.00 /min Mikki en F Seymour Respiratory Rate 2024-04-08 10:34:00 18.00 /min Familia F Seymour BP Systolic 2024-04-08 10:15:00 103 mm[Hg] Step hen F Seymour BP Diastolic 2024-04-08 10:15:00 71 mm[Hg] Doc phen F Seymour Weight Measured 2024-04-08 10:15:00 241.00 pounds Familia F Seymour Height Measured 2024-04-08 10:15:00 60.00 inches Familia F Seymour Body Temperature 2024-04-08 10:15:00 98.10 degrees Familia F Seymour Heart Rate 2024-04-08 10:15:00 83.00 /min Mikki en F Seymour Respiratory Rate 2024-04-08 10:15:00 18.00 /min Familia F Seymour BP Systolic 2024-01-03 09:32:00 113 mm[Hg] Step hen F Seymour BP Diastolic 2024-01-03 09:32:00 75 mm[Hg] Doc phen F Seymour Weight Measured 2024-01-03 09:32:00 227.80 pounds Familia F Seymour Height Measured 2024-01-03 09:32:00 60.00 inches Familia F Seymour Body Temperature 2024-01-03 09:32:00 97.80 degrees Familia F Seymour Heart Rate 2024-01-03 09:32:00 91.00 /min Mikki en F Seymour Respiratory Rate 2024-01-03 09:32:00 18.00 /min Familia F Seymour BP Systolic 2023-11-24 17:50:00 104 mm[Hg] Step hen F Seymour BP Diastolic 2023-11-24 17:50:00 70 mm[Hg] Doc phen F Seymour Weight Measured 2023-11-24 17:50:00 224.80 pounds Familia F Seymour Height Measured 2023-11-24 17:50:00 60.00 inches Familia F Seymour Body Temperature 2023-11-24 17:50:00 98.30 degrees Familia F Seymour Heart Rate 2023-11-24 17:50:00 81.00 /min Mikki en F Seymour Respiratory Rate 2023-11-24 17:50:00 18.00 /min Familia F Seymour Respitory Rate 2023-09-23 13:54:01 [facility] Systolic (mm Hg) 2023-09-23 13:53:56 [facility] Diastolic (mm Hg) 2023-09-23 13:53:56 [facility] Heart Rate 2023-09-23 13:53:56 [facility] Temperature Oral (F) 2023-09-23 13:53:39 98.6 F [facility] Temperature Oral (F) 2023-09-23 08:25:00 98.4 F [facility] Heart Rate 2023-09-23 08:25:00 [facility] Respitory Rate 2023-09-23 08:25:00 [facility] Systolic (mm Hg) 2023-09-23 08:25:00 [facility] Diastolic (mm Hg) 2023-09-23 08:25:00 [facility] Temperature Oral (F) 2023-09-23 03:25:00 97.9 F [facility] Heart Rate 2023-09-23 03:25:00 [facility] Respitory Rate 2023-09-23 03:25:00 [facility] Systolic (mm Hg) 2023-09-23 03:25:00 [facility] Diastolic (mm Hg) 2023-09-23 03:25:00 [facility] Height 2023-09-22 20:28:00 160.02 cm [facility] BMI Calculated 2023-09-22 20:28:00 [facility] Weight 2023-09-22 20:28:00 [facility] BP Systolic 2016-05-28 13:15:00 107 mm[Hg] Step hen F Seymour BP Diastolic 2016-05-28 13:15:00 55 mm[Hg] Doc phen F Seymour Weight Measured 2016-05-28 13:15:00 139.80 pounds Familia F Seymour Height Measured 2016-05-28 13:15:00 60.00 inches Familia F Seymour Body Temperature 2016-05-28 13:15:00 97.70 degrees Familia F Seymour Heart Rate 2016-05-28 13:15:00 95.00 /min Mikki en F Seymour Respiratory Rate 2016-05-28 13:15:00 16.00 /min Familia F Seymour BP Systolic 2016-04-30 09:35:00 138 mm[Hg] Step hen F Seymour BP Diastolic 2016-04-30 09:35:00 78 mm[Hg] Doc phen F Seymour Weight Measured 2016-04-30 09:35:00 134.40 pounds Familia F Seymour Height Measured 2016-04-30 09:35:00 60.00 inches Familia F Seymour Body Temperature 2016-04-30 09:35:00 98.40 degrees Familia F Seymour Heart Rate 2016-04-30 09:35:00 105.00 /min Step hen F Seymour Respiratory Rate 2016-04-30 09:35:00 18.00 /min Familia F Seymour BP Systolic 2016-02-20 10:15:00 100 mm[Hg] Step hen F Seymour BP Diastolic 2016-02-20 10:15:00 58 mm[Hg] Doc phen F Seymour Weight Measured 2016-02-20 10:15:00 117.40 pounds Familia F Seymour Height Measured 2016-02-20 10:15:00 60.00 inches Familia F Seymour Body Temperature 2016-02-20 10:15:00 98.20 degrees Familia F Seymour Heart Rate 2016-02-20 10:15:00 74.00 /min Mikki en F Seymour Respiratory Rate 2016-02-20 10:15:00 18.00 /min Familia F Seymour Procedures Procedure Date / Time Performed Performing Clinician Source FREE T4 2023-01-04 16:21:00 [facility] T3 UPTAKE 2023-01-04 16:21:00 [facility] THYROID STIMULATING HORMONE 2023-01-04 16:21:00 [facility] COMP. METABOLIC PANEL (52196) 2023-01-04 16:21:00 [facility] LIPID PANEL (36853)(TOTAL CHOLESTEROL, TRIGLYCERIDES, HDL) 2023-01-04 16:21:00 [facility] CBC WITH DIFF 2023-01-04 16:21:00 [facility] GLYCOSYLATED HEMOGLOBIN (A1C) 2023-01-04 16:21:00 David Pacheco [facility] URINALYSIS 2023-01-04 16:21:00 David Pacheco [facility] FREE T3 2023-01-04 16:21:00 David Pacheco [facility] US HEAD NECK 2022-08-24 15:47:55 Umu Sagastume [facility] INSURANCE CORRESPONDENCE 2022-08-11 05:01:00 Doctor Unassigned, [place] [facility] CORTISOL AM 2022-07-20 16:10:00 Umu Sagastume [facility] PROLACTIN 2022-07-20 16:10:00 Umu Sagastume [facility] THYROID STIMULATING HORMONE 2022-07-20 16:10:00 Umu Sagastume [facility] COMP. METABOLIC PANEL (10327) 2022-07-20 16:10:00 Umu Sagastume [facility] LIPID PANEL (15251)(TOTAL CHOLESTEROL, TRIGLYCERIDES, HDL) 2022-07-20 16:10:00 Umu Sagastume [facility] ADRENOCORTICOTROPIC HORMONE 2022-07-20 16:10:00 Umu Sagastume [facility] THYROID PEROXIDASE (TPO) AB 2022-07-20 16:10:00 Umu Sagastume [facility] URINALYSIS 2022-07-03 15:13:00 David Pacheco [facility] FREE T4 2022-07-03 15:10:00 David Pacheco [facility] THYROID STIMULATING HORMONE 2022-07-03 15:10:00 David Pacheco [facility] COMP. METABOLIC PANEL (24032) 2022-07-03 15:10:00 David Pacheco [facility] LIPID PANEL (98176)(TOTAL CHOLESTEROL, TRIGLYCERIDES, HDL) 2022-07-03 15:10:00 David Pacheco [facility] CBC WITH DIFF 2022-07-03 15:10:00 David Pacheco [facility] GLYCOSYLATED HEMOGLOBIN (A1C) 2022-07-03 15:10:00 David Pacheco [facility] ASSIGNMENT OF BENEFITS 2022-07-03 13:42:33 Doctor Unassigned, [place] [facility] REFERRAL- REQUEST/RESPONSE 2019-07-21 05:01:00 Doctor Unassigned, [place] [facility] Encounters Start Date/Time End Date/Time Encounter Type Admission Type Attending [facility] Care Department Encounter ID Source 2024-02-04 21:24:13 Emergency [facility] [id number] [facility] ent 2023-09-30 08:55:00 Outpatient PRINCE MORRISON [id number] [facility] 2022-02-17 11:58:59 Outpatient [facility] [id number] [facility] 2021-06-14 08:42:26 Outpatient [facility] LS [id number] [facility] 2024-06-18 08:01:48 2024-06-18 08:01:48 Outpatient SFA SFA [id number] Familia Ahuja 2024-06-15 17:06:44 2024-06-15 17:06:44 Outpatient SFA SFA [id number] Familia Ahuja 2024-06-10 13:21:16 2024-06-10 13:21:16 Outpatient SFA SFA [id number] Familia Ahuja 2024-06-10 00:00:00 2024-06-10 00:00:00 Outpatient Visit SFA 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 Familia Ahuja 2024-06-01 17:33:24 2024-06-01 17:33:24 Outpatient SFA SFA [id number] Familia Mansfield Seymour 2024-05-22 12:36:53 2024-05-22 12:36:53 Outpatient SFA SFA [id number] Familia Mansfield Seymour 2024-05-18 10:25:59 2024-05-18 10:25:59 Outpatient SFA SFA [id number] Familia F Seymour 2024-05-12 09:49:23 2024-05-12 09:49:23 Outpatient SFA SFA [id number] Familia Ahuja 2024-04-23 14:25:11 2024-04-23 14:25:11 Outpatient SFA SFA [id number] Familia Ahuja 2024-04-13 08:33:30 2024-04-13 08:33:30 Outpatient SFA SFA [id number] Familia Ahuja 2024-04-08 10:27:33 2024-04-08 10:27:33 Outpatient SFA SFA [id number] Familia Ahuja 2024-04-08 00:00:00 2024-04-08 00:00:00 Outpatient Visit SFA [id number] Familia Ahuja 2024-03-26 13:56:31 2024-03-26 13:56:31 Outpatient SFA SFA [id number] Familia Ahuja 2024-03-20 07:58:40 2024-03-20 07:58:40 Outpatient SFA SFA [id number] Familia Ahuja 2024-02-27 10:23:57 2024-02-27 10:23:57 Outpatient SFA SFA [id number] Familia Ahuja 2024-02-16 08:09:42 2024-02-16 08:09:42 Outpatient SFA SFA [id number] Familia Ahuja 2024-02-04 21:05:00 2024-02-04 22:33:00 Emergency EM Raymond Suarez [facility] [id number] [facility] 2024-01-14 17:36:33 2024-01-14 17:36:33 Outpatient SFA SFA [id number] Familia Ahuja 2024-01-13 08:05:41 2024-01-13 08:05:41 Outpatient SFA SFA [id number] Familia Ahuja 2024-01-03 09:33:41 2024-01-03 09:33:41 Outpatient SFA SFA [id number] Familia Ahuja 2024-01-03 00:00:00 2024-01-03 00:00:00 Outpatient Visit SFA [id number] Familia Ahuja 2024-01-01 00:00:00 2024-01-01 17:17:13 Nurse Triage Maida Whiting Jenny L [facility] 1.2.840.114 350.1.13.10 4.2.7.2.686 [id number] [facility] 2023-12-29 11:01:31 2023-12-29 11:01:31 Outpatient S[facility] [id number] Familia Ahuja 2023-12-24 08:57:41 2023-12-24 08:57:41 Outpatient [facility] [id number] Familia Ahuja 2023-11-25 00:00:00 2023-11-26 10:07:04 Telephone Elmer Maddox [facility] 1.2.840.114 350.1.13.10 4.2.7.2.686 [id number] [facility] 2023-11-25 19:40:00 2023-11-25 20:54:59 Outpatient R ELMER MADDOX SHAHNAZ [facility] [id number] [facility] 2023-11-25 19:40:00 2023-11-25 20:54:59 Urgent Care Elmer Maddox Unknown, Attending [facility] 1.2.840.114 350.1.13.10 4.2.7.2.686 [id number] [facility] 2023-11-24 17:38:46 2023-11-24 17:38:46 Outpatient S[facility] [id number] Familia Ahuja 2023-11-24 00:00:00 2023-11-24 00:00:00 Outpatient Visit SFA [id number] Familia Ahuja 2023-10-15 11:41:16 2023-10-15 11:41:16 Outpatient [facility] [id number] Familia Ahuja 2023-09-22 15:26:00 2023-09-23 16:35:00 Emergency E RUBA LEBRON [facility] [id number] [facility] 2023-09-20 14:20:45 2023-09-20 14:20:45 Outpatient [facility] [id number] Familia Ahuja 2023-07-06 10:30:00 2023-07-06 10:30:00 Outpatient R DAVID PACHECO [facility] [id number] [facility] 2023-04-07 13:30:00 2023-04-07 13:30:00 Outpatient SUGEY CHAVES [facility] [id number] [facility] 2023-01-08 00:00:00 2023-01-08 00:00:00 Patient Outreach Jessie Reinoso [facility] 1.2.840.114 350.1.13.10 4.2.7.2.686 [id number] [facility] 2023-01-07 00:00:00 2023-01-07 00:00:00 Telephone PachecoDavid [facility] 1.2.840.114 350.1.13.10 4.2.7.2.686 [id number] [facility] 2023-01-04 11:15:00 2023-01-04 11:19:37 Claims Associate Visit 2, Adc Lab Nima Pachecossica [facility] 1.2.840.114 350.1.13.10 4.2.7.2.686 [id number] [facility] 2023-01-04 10:00:00 2023-01-04 11:08:38 Office Visit PachecoDavid [facility] 1.2.840.114 350.1.13.10 4.2.7.2.686 [id number] [facility] 2023-01-04 10:00:00 2023-01-04 11:08:38 Outpatient DAVID CRUZ [facility] [id number] [facility] 2022-12-31 11:12:58 2022-12-31 11:12:58 Outpatient [facility] [id number] Familia Ahuja 2022-12-07 14:24:45 2022-12-07 14:24:45 Outpatient [facility] [id number] Familia Mansfield Seymour 2022-12-04 13:30:00 2022-12-04 14:00:00 Office Visit David Pacheco [facility] 1.2.840.114 350.1.13.10 4.2.7.2.686 [id number] [facility] 2022-12-04 13:30:00 2022-12-04 13:30:00 [facility] [id number] [facility] 2022-12-04 00:00:00 2022-12-04 00:00:00 [facility] 1.2.840.114 350.1.13.10 4.2.7.2.686 [id number] [facility] 2022-11-17 09:30:00 2022-11-17 09:30:00 Outpatient UMU DAVIS [facility] [id number] [facility] 2022-09-25 20:31:00 2022-09-26 20:50:00 Emergency EM Maximus Dodson [facility] [id number] [place] [address] 2022-08-24 09:20:56 2022-08-24 23:59:00 Outpatient UMU DAVIS [facility] [id number] [facility] 2022-08-24 09:20:56 2022-08-24 23:59:00 Hospital Encounter Umu Sagastume [facility] 1.2840.114 350.1.13.10 4.2.7.2.686 [id number] [facility] 2022-08-20 13:36:44 2022-08-20 13:36:44 Outpatient [facility] [id number] Familia Ahuja 2022-08-19 00:00:00 2022-08-19 00:00:00 Telephone David Pacheco [facility] 1.2.840.114 350.1.13.10 4.2.7.2.686 [id number] [facility] 2022-08-11 00:00:00 2022-08-11 00:00:00 [facility] 1.2.840.114 350.1.13.10 4.2.7.2.686 [id number] [facility] 2022-08-11 00:00:00 2022-08-11 00:00:00 Orders Only Doctor Unassigned, [place] [facility] 1.2.840.114 350.1.13.10 4.2.7.2.686 [id number] [facility] 2022-07-23 14:22:37 2022-07-23 14:22:37 Outpatient SFA [facility] [id number] Familia Ahuja 2022-07-23 00:00:00 2022-07-23 00:00:00 Refill Umu Sagastume [facility] 1.2.840.114 350.1.13.10 4.2.7.2.686 [id number] [facility] 2022-07-20 10:30:00 2022-07-20 11:00:00 Office [address] Umu Sagastume [facility] 1.2.840.114 350.1.13.10 4.2.7.2.686 [id number] [facility] 2022-07-20 10:30:00 2022-07-20 10:30:00 Outpatient R UMU SAGASTUME [facility] [id number] [facility] 2022-07-03 10:15:00 2022-07-03 10:30:00 Claims Associate Visit 2, Adc Lab Nima Pachecossica [facility] 1.2.840.114 350.1.13.10 4.2.7.2.686 [id number] [facility] 2022-07-03 08:30:00 2022-07-03 09:55:01 [facility] [id number] [facility] 2022-07-03 08:30:00 2022-07-03 09:55:01 Office Visit David Pacheco [facility] 1.2.840.114 350.1.13.10 4.2.7.2.686 [id number] [facility] 2022-07-03 00:00:00 2022-07-03 00:00:00 Orders Only Doctor Unassigned, [place] [facility] 1.2.840.114 350.1.13.10 4.2.7.2.686 [id number] [facility] 2021-12-12 15:42:00 2021-12-12 15:42:00 Outpatient Betty Santana [facility] [id number] [facility] 2020-02-29 13:30:00 2020-02-29 13:30:00 Outpatient AKBAR HINSON [facility] [id number] [facility] 2019-11-17 14:00:00 2019-11-17 14:00:00 Outpatient R YESIAK HANDY [facility] [id number] [facility] 2019-11-14 10:10:00 2019-11-14 10:10:00 Outpatient Deejay JANAY JULIEN [facility] [id number] [facility] 2019-09-06 13:00:00 2019-09-06 13:00:00 Outpatient Deejay JANAY JULIEN [facility] [id number] [facility] 2019-09-06 00:00:00 2019-09-06 00:00:00 Telephone Janay Julien [facility] 1.2.840.114 350.1.13.10 4.2.7.2.686 [id number] [facility] 2019-07-21 00:00:00 2019-07-21 00:00:00 Orders Only Doctor Unassigned, [place] [facility] 1.2.840.114 350.1.13.10 4.2.7.2.686 [id number] [facility] 2019-06-26 13:20:00 2019-06-26 13:20:00 Outpatient MEHRAN PARIKH [facility] [id number] [facility] 2019-06-23 00:00:00 2019-06-23 00:00:00 Telephone Pcp, Patient Does Not Have A [facility] 1.2840.114 350.1.13.10 4.2.7.2.686 [id number] [facility] Results Test Description Test Time Test Comments Results Result Co mments Source TOXOPLASMA IgM [id number] 00:00:00* Test Item Value Reference Range Interpretation Comme nts TOXOPLASMA AB, IgM (test cod e = 76181) 0.164 INDEX Familia Mansfield AustinTHYROID II PROFILE (TU,T4,FTI,TSH)2024-04-09 23:54:50* Test Item Value Reference Range Interpretation Comme nts T-UPTAKE (test code = 2817) 27.2 % 24.3-39.0 THYROX. BIND. CAPAC. (test code = 70783) 1.2 0.8-1.3 T4 (THYROXINE) (test code = 2819) 3.4 UG/DL 4.5-10.5 L CORRECTED T4 (FTI) (test cod e = 2820) 2.8 UG/DL 4.2-11.6 L TSH, THIRD GENERATION (test code = 2821) >100.000 UIU/ML 0.400-4.100 H TSH, THIRD [id number] 23:54:50* Test Item Value Reference Range Interpretation Comme nts TSH, THIRD GENERATION (test code = 2821) >100.000 UIU/ML 0.400-4.100 H COMPREHENSIVE METABOLIC [id number] 23:54:06* Test Item Value Reference Range Interpretation Comme nts GLUCOSE (test code = 2217) 87 MG/DL 70-99 BUN (test code = 2207) 12 MG/DL 6-20 CREATININE (test code = 2214) 0.75 MG/DL 0.50-1.10 eGFR (2020 CKD-EPI) (test code = 59061) 118 ML/MIN/1.73 >60 CALC BUN/CREAT (test code = 2235) 16 RATIO 6-28 SODIUM (test code = 2231) 137 MEQ/L 133-146 POTASSIUM (test code = 2228) 4.3 MEQ/L 3.5-5.4 CHLORIDE (test code = 2215) 101 MEQ/L 95-107 CARBON DIOXIDE (test code = 2206) 22 MEQ/L 19-31 CALCIUM (test code = 2209) 9.8 MG/DL 8.5-10.5 PROTEIN, TOTAL (test code = 2229) 6.7 G/DL 6.1-8.3 ALBUMIN (test code = 2201) 4.1 G/DL 3.5-5.2 CALC GLOBULIN (test code = 2240) 2.6 G/DL 2.1-3.7 CALC A/G RATIO (test code = 2234) 1.6 RATIO 1.0-2.6 BILIRUBIN, TOTAL (test code = 2207) 0.3 MG/DL <=1.2 ALKALINE PHOSPHATASE (test code = 2204) 73 U/L 41-120 AST (test code = 2218) 15 U/L 9-40 ALT (test code = 2219) 10 U/L 5-40 LIPID [id number] 23:54:06* Test Item Value Reference Range Interpretation Comme nts CHOLESTEROL (test code = 2210) 242 MG/DL <200 H TRIGLYCERIDES (test code = 2232) 101 MG/DL <150 HDL CHOLESTEROL (test code = 2220) 61 MG/DL >39 CALC LDL CHOL (test code = 2237) 160 MG/DL <100 H NOTE: CALCULATED LDL IS BASED ON MELISSA-GUZMAN METHOD WHICHINCLUDES ADJUSTABLE TRIGLYCERIDE:VLDL CHOLESTEROL RATIO.THIS FACTOR VARIES BY MEASURED TRIGLYCERIDE AND NON-HDLCHOLESTEROL CONCENTRATIONS WITH INCREASED CALCULATED LDL SEENIN HIGHER TRIGLYCERIDE OR LOWER NON-HDL SPECIMENS. FOR MOREINFORMATION, SEE CLIENT ANNOUNCEMENT AT [email or web address] RISK RATIO LDL/HDL (test code = 2238) 2.62 RATIO <3.22 HEMOGLOBIN [id number] 05:19:16* Test Item Value Reference Range Interpretation Comme nts HEMOGLOBIN A1c (test code = 03049) 5.3 % 4.2-5.6 UNLESS OTHERWISE INDICATED, ALL TESTING PERFORMED AT [facility] [address] [place] [address] GAR[employer]T ROOM WORKER: FAUSTO BAUMANN M.D. CLIA NUMBER [id number] [place]. [id number] CBC W/AUTO DIFF WITH [id number] 03:45:46* Test Item Value Reference Range Interpretation Comme nts WBC (test code = 1001) 6.2 K/UL 3.5-11.0 RBC (test code = 1002) 4.42 M/UL 3.80-5.40 HEMOGLOBIN (test code = 1003) 12.4 G/DL 11.5-15.5 HEMATOCRIT (test code = 1004) 37.7 % 34.0-45.0 MCV (test code = 1005) 85.3 fL 80.0-99.0 MCH (test code = 1006) 28.1 PG 25.0-33.0 MCHC (test code = 1007) 32.9 G/DL 31.0-36.0 RDW (test code = 1038) 13.0 % 11.5-15.0 NEUTROPHILS (test code = 1008) 59.1 % LYMPHOCYTES (test code = 1010) 32.7 % MONOCYTES (test code = 1011) 5.2 % EOSINOPHILS (test code = 1012) 2.4 % BASOPHILS (test code = 1013) 0.3 % IMMATURE GRANULOCYTES (test code = 1036) 0.3 % NUCLEATED RBCS (test code = 1065) 0.0 /100 WBC'S See_Comment [Automated messa ge] The system which generated this result transmitted reference range: 0.0. The reference range was not used to interpret this result as normal/abnormal. PLATELET COUNT (test code = 1015) 212 K/UL 130-400 ABSOLUTE NEUTROPHILS (test code = 1066) 3.65 K/UL 1.50-7.50 ABSOLUTE LYMPHOCYTES (test code = 1067) 2.02 K/UL 1.00-4.00 ABSOLUTE MONOCYTES (test code = 1068) 0.32 K/UL 0.20-1.00 ABSOLUTE EOSINOPHILS (test code = 1040) 0.15 K/UL 0.00-0.50 ABSOLUTE BASOPHILS (test code = 1069) 0.02 K/UL 0.00-0.20 ABS IMMATURE GRANULOCYTES (test code = 1020) 0.02 K/UL 0.00-0.10 ABS NUCLEATED RBCS (test code = 89936) 0.00 K/UL 0.00-0.11 CBC W/AUTO [id number] 00:00:00* Test Item Value Reference Range Interpretation Comme nts WBC (test code = 1001) 6.2 K/UL RBC (test code = 1002) 4.42 M/UL HEMOGLOBIN (test code = 1003) 12.4 G/DL HEMATOCRIT (test code = 1004) 37.7 % MCV (test code = 1005) 85.3 fL MCH (test code = 1006) 28.1 PG MCHC (test code = 1007) 32.9 G/DL RDW (test code = 1038) 13.0 % NEUTROPHILS (test code = 1008) 59.1 % LYMPHOCYTES (test code = 1010) 32.7 % MONOCYTES (test code = 1011) 5.2 % EOSINOPHILS (test code = 1012) 2.4 % BASOPHILS (test code = 1013) 0.3 % IMMATURE GRANULOCYTES (test code = 1036) 0.3 % NUCLEATED RBCS (test code = 1065) 0.0 /100WBC'S PLATELET COUNT (test code = 1015) 212 K/UL ABSOLUTE NEUTROPHILS (test c ode = 1066) 3.65 K/UL ABSOLUTE LYMPHOCYTES (test c ode = 1067) 2.02 K/UL ABSOLUTE MONOCYTES (test cod e = 1068) 0.32 K/UL ABSOLUTE EOSINOPHILS (test c ode = 1040) 0.15 K/UL ABSOLUTE BASOPHILS (test cod e = 1069) 0.02 K/UL ABS IMMATURE GRANULOCYTES (t est code = 1020) 0.02 K/UL ABS NUCLEATED RBCS (test cod e = 50516) 0.00 K/UL Familia AhujaCOMPREHENSIVE METABOLIC [id number] 00:00:00* Test Item Value Reference Range Interpretation Comme nts GLUCOSE (test code = 2217) 87 MG/DL BUN (test code = 2208) 12 MG/DL CREATININE (test code = 2214) 0.75 MG/DL eGFR (2020 CKD-EPI) (test code = 76897) 118 ML/MIN/1.73 CALC BUN/CREAT (test code = 2235) 16 RATIO SODIUM (test code = 2231) 137 MEQ/L POTASSIUM (test code = 2228) 4.3 MEQ/L CHLORIDE (test code = 2215) 101 MEQ/L CARBON DIOXIDE (test code = 2206) 22 MEQ/L CALCIUM (test code = 2209) 9.8 MG/DL PROTEIN, TOTAL (test code = 2229) 6.7 G/DL ALBUMIN (test code = 2201) 4.1 G/DL CALC GLOBULIN (test code = 2240) 2.6 G/DL CALC A/G RATIO (test code = 2234) 1.6 RATIO BILIRUBIN, TOTAL (test code = 2207) 0.3 MG/DL ALKALINE PHOSPHATASE (test code = 2204) 73 U/L AST (test code = 2218) 15 U/L ALT (test code = 2219) 10 U/L [facility] AustinLIPID [id number] 00:00:00* Test Item Value Reference Range Interpretation Comme nts CHOLESTEROL (test code = 2210) 242 MG/DL TRIGLYCERIDES (test code = 2232) 101 MG/DL HDL CHOLESTEROL (test code = 2220) 61 MG/DL CALC LDL CHOL (test code = 2237) 160 MG/DL RISK RATIO LDL/HDL (test cod e = 2238) 2.62 RATIO Familia AhujaTHYROID II PROFILE (TU, T4, T7, TSH)2024-04-09 00:00:00* Test Item Value Reference Range Interpretation Comme emily T-UPTAKE (test code = 2817) 27.2 % THYROX. BIND. CAPAC. (test code = 69551) 1.2 T4 (THYROXINE) (test code = 2819) 3.4 UG/DL CORRECTED T4 (FTI) (test cod e = 2820) 2.8 UG/DL TSH, THIRD GENERATION (test code = 2821) >100.000 UIU/ML Familia AhujaTSH, THIRD [id number] 00:00:00* Test Item Value Reference Range Interpretation Comme emily TSH, THIRD GENERATION (test code = 2821) >100.000 UIU/ML Familia AhujaHEMOGLOBIN A1c [ADDED]2024-04-09 00:00:00* Test Item Value Reference Range Interpretation Comme emily HEMOGLOBIN A1c (test code = 75509) 5.3 % Familia [id number] 22:30:00* Test Item Value Reference Range Interpretation Comme emily LIPASE (test code = LIP) 55 UNITS/L 23-300 N BASIC METABOLIC [id number] 22:30:00* Test Item Value Reference Range Interpretation Comme nts SODIUM (test code = NA) 136 MMOL/L 137-145 L POTASSIUM (test code = K) 3.5 MMOL/L 3.5-5.1 N CHLORIDE (test code = CL) 105 MMOL/L 98-107 N CARBON DIOXIDE (test code = CO2) 23 MMOL/L 22-30 N ANION GAP (test code = GAP) 12 MMOL/L 14-24 L GLUCOSE (test code = GLU) 105 MG/DL 74-106 N BLOOD UREA NITROGEN (test code = BUN) 17 MG/DL 7-17 N GLOMERULAR FILTRATION RATE (test code = GFR) > 60 The Glomerular Filtration Rate is a calculated parameterbased on serum Creatinine, patient age and sex. GFR valuesless than 60 mL/min/1.73 square meters are indicative ofChronic Kidney Disease. Values less than 15 mL/min/1.73square meters indicate Kidney failure. The calculation forGFR is based on the CKD-EPI (2020) calculation. This formulais race indifferent and is the recommended formula for GFRby the National Kidney Foundation for Adults.The GFR will not calculate if the sex is unknown or if thepatient's age is <18 years. CREATININE (test code = CREAT) 0.70 MG/DL 0.52-1.04 N CALCIUM (test code = CA) 9.9 MG/DL 8.4-10.2 N HEPATIC FUNCTION [id number] 22:30:00* Test Item Value Reference Range Interpretation Comme nts TOTAL PROTEIN (test code = PROT) 7.7 G/DL 6.3-8.2 N [facility] [place] has made us aware of newinformation regarding the potential interference ofEltrombopag (a bone marrow stimulant used to treatthrombocytonmenia and aplastic anemia) with specific assayson the Replenishs 5600 of which Total Protein is one of thoseassays performed in our lab.Interference testing performed at Ortho determined thatEltrombopag does interfere with Vitros Total Protein asfollowsEltrombopag Interference for Vitros Product Total Protein: Eltrombopag Max Observed Avg. BiasConcentration Concentration Concentration 2.5 mg/dl 6.0 g/dl +0.41 +0.34 3.5 mg/dl 6.0 g/dl +0.50 +0.45 5 mg/dl 6.0 g/dl +0.73 +0.65 2.5 mg/dl 8.0 g/dl +0.44 +0.41 3.5 mg/dl 8.0 g/dl +0.55 +0.52 5 mg/dl 8.0 g/dl +0.86 +0.77 ALBUMIN (test code = ALB) 4.5 G/DL 3.5-5.0 N BILIRUBIN TOTAL (test code = BILT) 0.4 MG/DL 0.2-1.3 N Eltrombopag Inte rference for Vitros Product TBil, BuBc: Assay Eltrombopag Analyte/ Max Observed Avg. Bias Concentration Concentration Concentration TBil 7mg/dl TBil/ 1.2mg/dl +0.23mg.dl +0.20mg/dlBuBc 3.5mg/dl Bu/0.8mg/dl +0.25mg/dl +0.24mg/dlBuBc 7 mg/dl Bu/14.2mg/dl +0.38mg/dl +0.25mg/dlBuBc 5mg/dl Bc/0mg/dl +0.25mg/dl +0.15mg/dlBuBc 3.5mg/dl Bc/2.8mg/dl +0.25mg/dl +0.23mg/dl BILIRUBIN DIRECT (test code = BILD) 0.0 MG/DL 0.0-0.3 N Eltrombopag Inte rference for Vitros Product TBil, BuBc: Assay Eltrombopag Analyte/ Max Observed Avg. Bias Concentration Concentration Concentration TBil 7mg/dl TBil/ 1.2mg/dl +0.23mg.dl +0.20mg/dlBuBc 3.5mg/dl Bu/0.8mg/dl +0.25mg/dl +0.24mg/dlBuBc 7 mg/dl Bu/14.2mg/dl +0.38mg/dl +0.25mg/dlBuBc 5mg/dl Bc/0mg/dl +0.25mg/dl +0.15mg/dlBuBc 3.5mg/dl Bc/2.8mg/dl +0.25mg/dl +0.23mg/dl SGOT/AST (test code = AST) 22 UNITS/L 14-36 N SGPT/ALT (test code = ALT) 16 UNITS/L 0-34 N ALKALINE PHOSPHATASE (test code = ALKP) 74 UNITS/L 38-126 N HCG SERUM [id number] 22:28:00* Test Item Value Reference Range Interpretation Comme nts HCG SERUM QUAL (test code = HCGQL) NEGATIVE NEGATIVE URINALYSIS [id number] 22:27:00* Test Item Value Reference Range Interpretation Comme nts UA COLOR (test code = COLU) Light-Yellow YELLOW UA APPEARANCE (test code = APPU) Clear CLEAR UA GLUCOSE DIPSTICK (test code = DGLUU) Normal MG/DL NORMAL UA BILIRUBIN DIPSTICK (test code = BILU) Negative MG/DL NEGATIVE UA KETONE DIPSTICK (test code = KETU) Negative MG/DL NEGATIVE UA SPECIFIC GRAVITY (test code = SGU) 1.029 1.003-1.030 N UA BLOOD DIPSTICK (test code = ANGELIC) Negative Ángel/mm3 NEGATIVE UA PH DIPSTICK (test code = ELAINE) 7.0 5.0-9.0 N UA PROTEIN DIPSTICK (test code = PROU) Negative MG/DL NEGATIVE UA UROBILINIOGEN DIPSTICK (test code = URO) Normal MG/DL NORMAL UA NITRITE DIPSTICK (test code = EDOUARD) Negative NEGATIVE UA LEUKOCYTE ESTERASE DIPSTICK (test code = LEUU) Negative /mm3 NEGATIVE UA RBC (test code = RBCU) 0-3 RBC/HPF 0-3 UA WBC (test code = XWBCU) 0-3 WBC/HPF 0-5 UA BACTERIA (test code = BACU) RARE NONE A UA SQUAMOUS CELLS (test code = SQU) 6-15 #/HPF FEW/HPF UA MUCUS (test code = MUCU) Rare #/LPF NONE SOURCE OF URINE: CLEAN CATCHUR HCG [id number] 22:27:00* Test Item Value Reference Range Interpretation Comme nts UR HCG QUAL (test code = HCGQLU) NEGATIVE NEGATIVE SOURCE OF URINE: CLEAN CATCHCBC W/O [id number] 22:17:00* Test Item Value Reference Range Interpretation Comme nts WHITE BLOOD CELL (test code = WBC) 8.0 K/MM3 3.8-9.8 N RED BLOOD CELL (test code = RBC) 4.57 M/MM3 3.58-4.97 N HEMOGLOBIN (test code = HGB) 12.7 G/DL 11.2-14.9 N HEMATOCRIT (test code = HCT) 38.0 % 33.2-43.5 N MEAN CELL VOLUME (test code = MCV) 83 fL 80.7-99.1 N MEAN CELL HGB (test code = MCH) 27.8 pg 27.0-34.1 N MEAN CELL HGB CONCETRATION (test code = MCHC) 33.4 % 32.2-35.7 N RED CELL DISTRIBUTION WIDTH (test code = RDW) 13.2 % 12.1-15.2 N PLATELET COUNT (test code = PLT) 224 K/MM3 129-368 N NEUTROPHIL # (test code = NT#) 5.32 K/mm3 2.0-7.6 N IMMATURE GRANULOCYTE # (test code = IG#) 0.01 x10 3/uL 0-0.03 N LYMPHOCYTE # (test code = LY#) 2.18 K/mm3 1.0-3.8 N MONOCYTE # (test code = MO#) 0.37 K/mm3 0.1-0.8 N EOSINOPHIL # (test code = EO#) 0.11 K/mm3 0.0-0.2 N BASOPHIL # (test code = BA#) 0.03 K/mm3 0.0-0.2 N NUCLEATED RBC # (test code = NRBC#) 0.00 K/mm3 0.0-0.1 N [id number] 19:54:00* Test Item Value Reference Range Interpretation Comme nts Coronavirus (COVID-19) TARAH (test code = Coronavirus (COVID-19) TARAH) Not Detected 8(09/23/23 2:54 PM) [id number] 22:47:00* Test Item Value Reference Range Interpretation Comme nts U Amph Scr (test code = U Amph Scr) Negative *NA*(09/22/23 5:47 PM) U Fany Scr (test code = U Fany Scr) Negative *NA*(09/22/23 5:47 PM) U Benzodiaz Scr (test code = U Benzodiaz Scr) Negative *NA*(09/22/23 5:47 PM) U Cocaine Scr (test code = U Cocaine Scr) Negative *NA*(09/22/23 5:47 PM) U Cannab Scr (test code = U Cannab Scr) Negative *NA*(09/22/23 5:47 PM) U Opiate Scr (test code = U Opiate Scr) Negative *NA*(09/22/23 5:47 PM) U Phencyclidine Scr (test code = U Phencyclidine Scr) Negative *NA*(09/22/23 5:47 PM) UDS Note (test code = UDS Note) See Note 2*NA*(09/22/23 5:47 PM) [facility] [id number] 22:47:00* Test Item Value Reference Range Interpretation Comme nts U Amph Scr (test code = U Amph Scr) Negative *NA*(09/22/23 5:47 PM) U Fany Scr (test code = U Fany Scr) Negative *NA*(09/22/23 5:47 PM) U Benzodiaz Scr (test code = U Benzodiaz Scr) Negative *NA*(09/22/23 5:47 PM) U Cocaine Scr (test code = U Cocaine Scr) Negative *NA*(09/22/23 5:47 PM) U Cannab Scr (test code = U Cannab Scr) Negative *NA*(09/22/23 5:47 PM) U Opiate Scr (test code = U Opiate Scr) Negative *NA*(09/22/23 5:47 PM) U Phencyclidine Scr (test code = U Phencyclidine Scr) Negative *NA*(09/22/23 5:47 PM) UDS Note (test code = UDS Note) See Note 2*NA*(09/22/23 5:47 PM) [facility]2024-07-03 21:10:00* Test Item Value Reference Range Interpretation Comme nts Glucose Lvl (test code = Glucose Lvl) 82 70-99 BUN (test code = BUN) 17 7-22 Creatinine Lvl (test code = Creatinine Lvl) 0.86 0.50-1.40 Sodium Lvl (test code = Sodium Lvl) 136 135-145 Potassium Lvl (test code = P otassium Lvl) 3.7 3.5-5.1 Chloride Lvl (test code = Chloride Lvl) 106 95-109 CO2 (test code = CO2) 24 24-32 Calcium Lvl (test code = Calcium Lvl) 9.4 8.5-10.5 Total Protein (test code = T otal Protein) 7.8 6.4-8.4 Albumin Lvl (test code = Albumin Lvl) 3.9 3.5-5.0 ALT (test code = ALT) 19 <=65 AST (test code = AST) 11 <=37 Alk Phos (test code = Alk Phos) 67 39-136 Bili Total (test code = Bili Total) 1.0 0.2-1.3 AGAP (test code = AGAP) 9.7 10.0-20.0 B/C Ratio (test code = B/C Ratio) 20 1 6-25 Globulin (test code = Globulin) 3.9 2.7-4.2 A/G Ratio (test code = A/G Ratio) 1.0 1 0.7-1.6 eGFR (test code = eGFR) 99 [id number] 21:10:00* Test Item Value Reference Range Interpretation Comme nts Glucose Lvl (test code = Glucose Lvl) 82 70-99 BUN (test code = BUN) 17 7-22 Creatinine Lvl (test code = Creatinine Lvl) 0.86 0.50-1.40 Sodium Lvl (test code = Sodium Lvl) 136 135-145 Potassium Lvl (test code = Potassium Lvl) 3.7 3.5-5.1 Chloride Lvl (test code = Chloride Lvl) 106 95-109 CO2 (test code = CO2) 24 24-32 Calcium Lvl (test code = Calcium Lvl) 9.4 8.5-10.5 Total Protein (test code = Total Protein) 7.8 6.4-8.4 Albumin Lvl (test code = Albumin Lvl) 3.9 3.5-5.0 ALT (test code = ALT) 19 <=65 AST (test code = AST) 11 <=37 Alk Phos (test code = Alk Phos) 67 39-136 Bili Total (test code = Bili Total) 1.0 0.2-1.3 AGAP (test code = AGAP) 9.7 10.0-20.0 B/C Ratio (test code = B/C Ratio) 20 1 6-25 Globulin (test code = Globulin) 3.9 2.7-4.2 A/G Ratio (test code = A/G Ratio) 1.0 1 0.7-1.6 eGFR (test code = eGFR) 99 Acetaminoph Lvl (test code = Acetaminoph Lvl) (09/22/23 4:10 PM) 10-20 Ethanol Lvl (test code = Ethanol Lvl) no gt Etoh (%) (test code = Etoh (%)) no gt Salicylate Lvl (test code = Salicylate Lvl) no gt <=30.0 hCG Tot (test code = hCG Tot) no gt [place] [id number] 21:10:00* Test Item Value Reference Range Interpretation Comme nts hCG Tot (test code = hCG Tot) [facility] gt [id number] 21:10:00* Test Item Value Reference Range Interpretation Comme nts WBC X 10x3 (test code = WBC X 10x3) 8.61 4.15-10.551 03 NRBC % (test code = NRBC %) 0.0 <=0.0100 RBC X 10x6 (test code = RBC X 10x6) 4.49 3.74-5.2210 6 Hgb (test code = Hgb) 12.6 10.8-14.8 Hct (test code = Hct) 38.1 33.9-45.4 MCV (test code = MCV) 84.9 77.8-97.5 MCH (test code = MCH) 28.1 pg 24.9-32.6 MCHC (test code = MCHC) 33.1 30.1-35.0 RDW - SD (test code = RDW - SD) 38.0 37.6-49.1 Platelet (test code = Platelet) 214 [id number] MPV (test code = MPV) 13.2 9.0-12.6 Segmented Neutrophils (test code = Segmented Neutrophils) 70.6 40.9-70.4 Lymphocytes (test code = Lymphocytes) 23.1 15.3-46.4 Monocytes (test code = Monocytes) 4.6 3.9-10.9 Eosinophils (test code = Eosinophils) 1.3 0.3-4.1 Basophils (test code = Basophils) 0.2 0.2-1.3 Immature Granulocytes # (kalie t code = Immature Granulocytes #) 0.2 0.1-1.0 Segmented Neutrophils # (kalie t code = Segmented Neutrophils #) 6.07 2.03-7.60839 Lymphocytes # (test code = Lymphocytes #) 1.99 1.09-3.64377 Monocytes # (test code = Monocytes #) 0.40 0.27-0.78 103 Eosinophils # (test code = Eosinophils #) 0.11 0.02-0.25189 Basophils # (test code = Basophils #) 0.02 0.01-0.09 103 Immature Granulocytes (test code = Immature Granulocytes) 0.02 0.01-0.82665 [facility] [id number] 21:10:00* Test Item Value Reference Range Interpretation Comme nts Acetaminoph Lvl (test code = Acetaminoph Lvl) (09/22/23 4:10 PM) 10-20 Ethanol Lvl (test code = Ethanol Lvl) no gt Etoh (%) (test code = Etoh (%)) no gt Salicylate Lvl (test code = Salicylate Lvl) no gt <=30.0 [facility] [id number] 03:12:00* Test Item Value Reference Range Interpretation Comme nts UA COLOR (test code = COLU) YELLOW YELLOW UA APPEARANCE (test code = APPU) CLEAR CLEAR IS THE SAMPLE FROM ER OR L&D?Y IF THE ANSWER IS NO,PLEASE DOCUMENT TWO RN SIGNATURES HERE- by [id number] 09/26/22 0312 UA BILIRUBIN DIPSTICK (test code = BILU) NEGATIVE mg/dL NEGATIVE UA SPECIFIC GRAVITY (test code = SGU) 1.020 1.001-1.035 UA PH DIPSTICK (test code = ELAINE) 6.5 5.0-8.0 UA UROBILINIOGEN DIPSTICK (test code = URO) Normal mg/dL NEGATIVE UA NITRITE DIPSTICK (test code = EDOUARD) NEGATIVE NEGATIVE UA LEUKOCYTE ESTERASE W REFLEX (test code = LEUUR) NEGATIVE [place]/uL NEGATIVE UA WBC (test code = WBCU) 0-5 per HPF 0-5 UA RBC (test code = RBCU) 0-3 #/HPF 0-5 UA EPITHELIAL CELLS (test code = EPIU) FEW per HPF FEW UA BACTERIA (test code = BACU) FEW #/HPF NONE A UA GLUCOSE DIPSTICK (test code = DGLUU) NEGATIVE mg/dL NEGATIVE UA KETONE DIPSTICK (test code = KETU) NEGATIVE mg/dL NEGATIVE UA BLOOD DIPSTICK (test code = ANGELIC) Negative mg/dL NEGATIVE UA PROTEIN DIPSTICK (test code = PROU) NEGATIVE mg/dL NEGATIVE UA MUCUS (test code = MUCU) FEW #/LPF FEW Urine Source? MidstreamDRUGS OF ABUSE SCREEN [id number] 03:12:00* Test Item Value Reference Range Interpretation Comme nts URN COCAINE (test code = COCAURN) NEGATIVE See_Comment [Automated woojua Ordr[employer]in] The system which generated this result transmitted reference range: <300 ng/mL. The reference range was not used to interpret this result as normal/abnormal. URN CANNABINOIDS (test code = CANNABURN) NEGATIVE See_Comment [Automated [employer]] The system which generated this result transmitted reference range: <50 ng/mL. The reference range was not used to interpret this result as normal/abnormal. URN AMPHETAMINE (test code = AMPHETURN) NEGATIVE See_Comment [Automated [employer] day] The system which generated this result transmitted reference range: <1000 ng/mL. The reference range was not used to interpret this result as normal/abnormal. URN BARBITURATE (test code = BARBITURN) NEGATIVE See_Comment [Automated [employer] day] The system which generated this result transmitted reference range: <200 ng/mL. The reference range was not used to interpret this result as normal/abnormal. URN BENZODIAZEPINE (test code = BENZOURN) NEGATIVE See_Comment [Automated mess age] The system which generated this result transmitted reference range: <200 ng/mL. The reference range was not used to interpret this result as normal/abnormal. URN OPIATES (test code = OPIATURN) NEGATIVE See_Comment [Automated messa ge] The system which generated this result transmitted reference range: <300 ng/mL. The reference range was not used to interpret this result as normal/abnormal. URN PHENCYCLIDINE (PCP) (test code = PHENCURN) NEGATIVE See_Comment [Automate d message] The system which generated this result transmitted reference range: <25 ng/mL. The reference range was not used to interpret this result as normal/abnormal. URN METHADONE (test code = METHAURN) NEGATIVE See_Comment [Automated messa ge] The system which generated this result transmitted reference range: <300 ng/mL. The reference range was not used to interpret this result as normal/abnormal. Urine Source? [id number] 22:04:00* Test Item Value Reference Range Interpretation Comme nts SALICYLATE (test code = NUSRAT) < 3.0 mg/dL 2.8-20.0 N [id number] 22:04:00* Test Item Value Reference Range Interpretation Comme nts ALCOHOL (test code = ALC) < 3 mg/dL 0.0-3.0 N -INTERPRE TIVE DATA NOTE: POSITIVE SCREENING RESULTS SHOULD BE CONSIDERED PRESUMPTIVE.WHEN COLLECTED FOR MEDICAL PURPOSES ONLY. SPECIMEN WILL NOTBE COLLECTED BY CHAIN OF CUSTODY.IF A CONFIRMATION OF POSITIVE RESULTS IS DESIRED, ACONFIRMATION TEST MUST BE REQUESTED BY THE PHYSICIAN AT ANADDITIONAL CHARGE TO THE PATIENT. BASIC METABOLIC [id number] 22:04:00* Test Item Value Reference Range Interpretation Comme nts SODIUM (test code = NA) 136 mmol/L 136-145 N POTASSIUM (test code = K) 3.8 mmol/L 3.5-5.1 N CHLORIDE (test code = CL) 102.0 mmol/L 98-107 N CARBON DIOXIDE (test code = CO2) 25.0 mmol/L 21-32 N ANION GAP (test code = GAP) 12.8 10-20 N GLUCOSE (test code = GLU) 90 mg/dL 74-106 N BLOOD UREA NITROGEN (test code = BUN) 7 mg/dL 7-18 N GLOMERULAR FILTRATION RATE (test code = GFR) > 60 mL/min See_Comment The Glomerular Filtration Rate is a calculated parameterbased on serum Creatinine, patient age and sex. GFR valuesless than 60 mL/min/1.73 square meters are indicative ofChronic Kidney Disease. Values less than 15 mL/min/1.73square meters indicate Kidney failure. The calculation forGFR is based on the CKD-EPI (2020) calculation. This formulais race indifferent and is the recommended formula for GFRby the National Kidney Foundation for Adults.The GFR will not calculate if the sex is unknown or if thepatient's age is <18 years. [Automated message] The system which generated this result transmitted reference range: >=60. The reference range was not used to interpret this result as normal/abnormal. CREATININE (test code = CREAT) 0.60 mg/dL 0.55-1.02 N Note change in reference range due to change in reagent. BUN/CREATININE RATIO (test code = BUN/CREA) 11.7 10-20 N CALCIUM (test code = CA) 9.4 mg/dL 8.5-10.1 N HEPATIC FUNCTION [id number] 22:04:00* Test Item Value Reference Range Interpretation Comme nts TOTAL PROTEIN (test code = PROT) 6.8 gram/dL 6.4-8.2 N ALBUMIN (test code = ALB) 3.8 g/dL 3.4-5.0 N GLOBULIN (test code = GLOB) 3.0 gram/dL 2.7-4.2 N ALBUMIN/GLOBULIN RATIO (test code = A/G) 1.3 0.75-1.50 N BILIRUBIN TOTAL (test code = BILT) 0.40 mg/dL 0.0-1.0 N BILIRUBIN DIRECT (test code = BILD) 0.10 mg/dL 0.0-0.20 N SGOT/AST (test code = AST) 17 IUnit/L 15-37 N SGPT/ALT (test code = ALT) 19 IUnit/L 20-69 L ALKALINE PHOSPHATASE TOTAL ( test code = ALKP) 52 IUnit/L 37-107 N HCG SERUM [id number] 22:04:00* Test Item Value Reference Range Interpretation Comme nts HCG SERUM QUAL (test code = HCGQL) NEGATIVE NEGATIVE This HCGQL test is NOT applicable for MALE patients.Check with nurse about probable order error.If Tumor Marker Test needed, nurse should order test "HCGTU"(Test #550.19644) [id number] 22:04:00* Test Item Value Reference Range Interpretation Comme nts ACETAMINOPHEN (test code = ACET) < 0.2 mg/dL 1.0-3.0 L CAUTION: TO CONVERT FROM MG/DL TO MCG/ML MULTIPLY RESULT BY10 COVID 19 INHOUSE [id number] 21:56:00* Test Item Value Reference Range Interpretation Comme nts COVID 19 INHOUSE AG (test co de = [id number]) NEGATIVE NEGATIVE CBC W/O [id number] 21:38:00* Test Item Value Reference Range Interpretation Comme nts WHITE BLOOD CELL (test code = WBC) 7.4 K/mm3 4.5-12.5 N RED BLOOD CELL (test code = RBC) 4.37 mill/mm3 3.7-5.2 N HEMOGLOBIN (test code = HGB) 12.3 gram/dL 11.5-15.5 N HEMATOCRIT (test code = HCT) 36.9 % 36.0-46.0 N MEAN CELL VOLUME (test code = MCV) 84.4 fL 80-98 N MEAN CELL HGB (test code = MCH) 28.1 picogram 27.0-33.0 N MEAN CELL HGB CONCETRATION (test code = MCHC) 33.3 gram/dL 33.0-36.0 N RED CELL DISTRIBUTION WIDTH (test code = RDW) 12.6 % 11.6-16.2 N PLATELET COUNT (test code = PLT) 223 K/mm3 150-450 N MEAN PLATELET VOLUME (test c ode = MPV) 12.8 fL 6.7-11.0 H VALPROIC [id number] 00:00:00* Test Item Value Reference Range Interpretation Comme nts VALPROIC ACID (test code = 3025) 8.1 UG/ML [facility] (HEPATIC) FUNCTION [id number] 00:00:00* Test Item Value Reference Range Interpretation Comme nts PROTEIN, TOTAL (test code = 2229) 7.0 G/DL ALBUMIN (test code = 2201) 4.5 G/DL BILIRUBIN, TOTAL (test code = 2207) 0.3 MG/DL BILIRUBIN, DIRECT (test code = 2021) 0.1 MG/DL ALKALINE PHOSPHATASE (test c ode = 2204) 257 U/L AST (test code = 2218) 29 U/L ALT (test code = 2219) 18 U/L [facility] SeymourCBC W/AUTO [id number] 00:00:00* Test Item Value Reference Range Interpretation Comme nts WBC (test code = 1001) 5.9 K/UL RBC (test code = 1002) 4.45 M/UL HEMOGLOBIN (test code = 1003) 12.3 G/DL HEMATOCRIT (test code = 1004) 37.3 % MCV (test code = 1005) 83.8 fL MCH (test code = 1006) 27.6 PG MCHC (test code = 1007) 33.0 G/DL RDW (test code = 1038) 12.7 % NEUTROPHILS (test code = 1008) 51.5 % LYMPHOCYTES (test code = 1010) 35.0 % MONOCYTES (test code = 1011) 6.1 % EOSINOPHILS (test code = 1012) 6.9 % BASOPHILS (test code = 1013) 0.5 % PLATELET COUNT (test code = 1015) 268 K/UL Familia AhujaCOMPREHENSIVE METABOLIC [id number] 00:00:00* Test Item Value Reference Range Interpretation Comme nts GLUCOSE (test code = 2217) 85 MG/DL BUN (test code = 2208) 15 MG/DL CREATININE (test code = 2214) 0.46 MG/DL eGFR AMER. (test code = 92512) (NOTE) ML/MIN/1.73 eGFR NON- AMER. (test code = 14503) NO CALC ML/MIN/1.73 CALC BUN/CREAT (test code = 2235) 33 RATIO SODIUM (test code = 2231) 142 MEQ/L POTASSIUM (test code = 2228) 4.3 MEQ/L CHLORIDE (test code = 2215) 99 MEQ/L CARBON DIOXIDE (test code = 2206) 25 MEQ/L CALCIUM (test code = 2209) 9.8 MG/DL PROTEIN, TOTAL (test code = 2229) 7.0 G/DL ALBUMIN (test code = 2201) 4.5 G/DL CALC GLOBULIN (test code = 2240) 2.5 G/DL CALC A/G RATIO (test code = 2234) 1.8 RATIO BILIRUBIN, TOTAL (test code = 7) 0.3 MG/DL ALKALINE PHOSPHATASE (test code = 2204) 257 U/L AST (test code = 2218) 29 U/L ALT (test code = 2219) 18 U/L Familia AhujaVALPROIC [id number] 00:00:00* Test Item Value Reference Range Interpretation Comme nts VALPROIC ACID (test code = 3025) 8.1 UG/ML Familia Barcenas (HEPATIC) FUNCTION [id number] 00:00:00* Test Item Value Reference Range Interpretation Comme nts PROTEIN, TOTAL (test code = 2229) 7.0 G/DL ALBUMIN (test code = 2201) 4.5 G/DL BILIRUBIN, TOTAL (test code = 2207) 0.3 MG/DL BILIRUBIN, DIRECT (test code = 2021) 0.1 MG/DL ALKALINE PHOSPHATASE (test c ode = 2203) 257 U/L AST (test code = 2218) 29 U/L ALT (test code = 2219) 18 U/L Familia AhujaCBC W/AUTO [id number] 00:00:00* Test Item Value Reference Range Interpretation Comme nts WBC (test code = 1001) 5.9 K/UL RBC (test code = 1002) 4.45 M/UL HEMOGLOBIN (test code = 1003) 12.3 G/DL HEMATOCRIT (test code = 1004) 37.3 % MCV (test code = 1005) 83.8 fL MCH (test code = 1006) 27.6 PG MCHC (test code = 1007) 33.0 G/DL RDW (test code = 1038) 12.7 % NEUTROPHILS (test code = 1008) 51.5 % LYMPHOCYTES (test code = 1010) 35.0 % MONOCYTES (test code = 1011) 6.1 % EOSINOPHILS (test code = 1012) 6.9 % BASOPHILS (test code = 1013) 0.5 % PLATELET COUNT (test code = 1015) 268 K/UL Familia Mansfield SeymourCOMPREHENSIVE METABOLIC [id number] 00:00:00* Test Item Value Reference Range Interpretation Comme nts GLUCOSE (test code = 2217) 85 MG/DL BUN (test code = 2208) 15 MG/DL CREATININE (test code = 2214) 0.46 MG/DL eGFR AMER. (test code = 76833) (NOTE) ML/MIN/1.73 eGFR NON- AMER. (test code = 41394) NO CALC ML/MIN/1.73 CALC BUN/CREAT (test code = 2235) 33 RATIO SODIUM (test code = 2231) 142 MEQ/L POTASSIUM (test code = 2228) 4.3 MEQ/L CHLORIDE (test code = 2215) 99 MEQ/L CARBON DIOXIDE (test code = 2206) 25 MEQ/L CALCIUM (test code = 2209) 9.8 MG/DL PROTEIN, TOTAL (test code = 2229) 7.0 G/DL ALBUMIN (test code = 2201) 4.5 G/DL CALC GLOBULIN (test code = 2240) 2.5 G/DL CALC A/G RATIO (test code = 2234) 1.8 RATIO BILIRUBIN, TOTAL (test code = 2207) 0.3 MG/DL ALKALINE PHOSPHATASE (test code = 2204) 257 U/L AST (test code = 2218) 29 U/L ALT (test code = 2219) 18 U/L Fam[facility] Mans[place] SeymourVALPROIC [id number] 00:00:00* Test Item Value Reference Range Interpretation Comme nts VALPROIC ACID (test code = 3025) 8.1 UG/ML Fam[facility] [place] JohnnyVER (HEPATIC) FUNCTION [id number] 00:00:00* Test Item Value Reference Range Interpretation Comme nts PROTEIN, TOTAL (test code = 2229) 7.0 G/DL ALBUMIN (test code = 2201) 4.5 G/DL BILIRUBIN, TOTAL (test code = 2207) 0.3 MG/DL BILIRUBIN, DIRECT (test code = 2022) 0.1 MG/DL ALKALINE PHOSPHATASE (test c ode = 4) 257 U/L AST (test code = 2218) 29 U/L ALT (test code = 2219) 18 U/L Familia AhujaCBC W/AUTO [id number] 00:00:00* Test Item Value Reference Range Interpretation Comme nts WBC (test code = 1001) 5.9 K/UL RBC (test code = 1002) 4.45 M/UL HEMOGLOBIN (test code = 1003) 12.3 G/DL HEMATOCRIT (test code = 1004) 37.3 % MCV (test code = 1005) 83.8 fL MCH (test code = 1006) 27.6 PG MCHC (test code = 1007) 33.0 G/DL RDW (test code = 1038) 12.7 % NEUTROPHILS (test code = 1008) 51.5 % LYMPHOCYTES (test code = 1010) 35.0 % MONOCYTES (test code = 1011) 6.1 % EOSINOPHILS (test code = 1012) 6.9 % BASOPHILS (test code = 1013) 0.5 % PLATELET COUNT (test code = 1015) 268 K/UL Familia AhujaCOMPREHENSIVE METABOLIC [id number] 00:00:00* Test Item Value Reference Range Interpretation Comme nts GLUCOSE (test code = 2217) 85 MG/DL BUN (test code = 8) 15 MG/DL CREATININE (test code = 2214) 0.46 MG/DL eGFR AMER. (test code = 58761) (NOTE) ML/MIN/1.73 eGFR NON- AMER. (test code = 97549) NO CALC ML/MIN/1.73 CALC BUN/CREAT (test code = 2235) 33 RATIO SODIUM (test code = 2231) 142 MEQ/L POTASSIUM (test code = 2228) 4.3 MEQ/L CHLORIDE (test code = 2215) 99 MEQ/L CARBON DIOXIDE (test code = 2206) 25 MEQ/L CALCIUM (test code = 2209) 9.8 MG/DL PROTEIN, TOTAL (test code = 2229) 7.0 G/DL ALBUMIN (test code = 2201) 4.5 G/DL CALC GLOBULIN (test code = 2240) 2.5 G/DL CALC A/G RATIO (test code = 2234) 1.8 RATIO BILIRUBIN, TOTAL (test code = 2207) 0.3 MG/DL ALKALINE PHOSPHATASE (test code = 2204) 257 U/L AST (test code = 2218) 29 U/L ALT (test code = 2219) 18 U/L Familia AhujaVALPROIC [id number] 00:00:00* Test Item Value Reference Range Interpretation Comme nts VALPROIC ACID (test code = 3025) 8.1 UG/ML Familia Mansfield SeymourLIVER (HEPATIC) FUNCTION [id number] 00:00:00* Test Item Value Reference Range Interpretation Comme nts PROTEIN, TOTAL (test code = 2229) 7.0 G/DL ALBUMIN (test code = 2201) 4.5 G/DL BILIRUBIN, TOTAL (test code = 2207) 0.3 MG/DL BILIRUBIN, DIRECT (test code = 2021) 0.1 MG/DL ALKALINE PHOSPHATASE (test c ode = 2204) 257 U/L AST (test code = 2218) 29 U/L ALT (test code = 2219) 18 U/L Familia Mansfield SeymourCBC W/AUTO [id number] 00:00:00* Test Item Value Reference Range Interpretation Comme nts WBC (test code = 1001) 5.9 K/UL RBC (test code = 1002) 4.45 M/UL HEMOGLOBIN (test code = 1003) 12.3 G/DL HEMATOCRIT (test code = 1004) 37.3 % MCV (test code = 1005) 83.8 fL MCH (test code = 1006) 27.6 PG MCHC (test code = 1007) 33.0 G/DL RDW (test code = 1038) 12.7 % NEUTROPHILS (test code = 1008) 51.5 % LYMPHOCYTES (test code = 1010) 35.0 % MONOCYTES (test code = 1011) 6.1 % EOSINOPHILS (test code = 1012) 6.9 % BASOPHILS (test code = 1013) 0.5 % PLATELET COUNT (test code = 1015) 268 K/UL Familia Mansfield SyemourCOMPREHENSIVE METABOLIC [id number] 00:00:00* Test Item Value Reference Range Interpretation Comme nts GLUCOSE (test code = 2217) 85 MG/DL BUN (test code = 2208) 15 MG/DL CREATININE (test code = 2214) 0.46 MG/DL eGFR AMER. (test code = 65749) (NOTE) ML/MIN/1.73 eGFR NON- AMER. (test code = 07953) NO CALC ML/MIN/1.73 CALC BUN/CREAT (test code = 2235) 33 RATIO SODIUM (test code = 2231) 142 MEQ/L POTASSIUM (test code = 2228) 4.3 MEQ/L CHLORIDE (test code = 2215) 99 MEQ/L CARBON DIOXIDE (test code = 2206) 25 MEQ/L CALCIUM (test code = 2209) 9.8 MG/DL PROTEIN, TOTAL (test code = 2229) 7.0 G/DL ALBUMIN (test code = 2201) 4.5 G/DL CALC GLOBULIN (test code = 2240) 2.5 G/DL CALC A/G RATIO (test code = 2234) 1.8 RATIO BILIRUBIN, TOTAL (test code = 2207) 0.3 MG/DL ALKALINE PHOSPHATASE (test code = 2204) 257 U/L AST (test code = 2218) 29 U/L ALT (test code = 2219) 18 U/L Familia Ahuja Notes Date/Time Note Provider Source [facility]00 [facility]2024-11-15 22:28:00 [facility] ([facility]) EMERGENCY PROVIDER REPORT REPORT#:[id number] REPORT STATUS: Signed DATE:02/04/24 TIME: 2227 PATIENT: AKMLESH GALINDO UNIT #: [id number] ROOM/BED: : 04 AGE: 18 SEX: F PCP PHYS: No Primary or Family Physician SERVICE AUTHOR: Raymond Suarez DO LOCATION: [facility] REP SRV REP SRV TM: 2228 * ALL edits or amendments must be made on the electronic/computer document * HPI-General Illness Free Text HPI Notes Free Text HPI Notes Patient is a 18-year-old female with a past medical history of anxiety depression presented with complaints of left upper quadrant abdominal pain. Patient notes that symptoms began shortly prior to arrival. Patient notes that she had finished eating her dinner prior to the onset of her symptoms. Patient denies having a fever, chills, chest pain, shortness of breath. Patient notes feeling mildly nauseous. General Confirmed Patient Yes Patient Type New patient Initial Greet Date/Time 02/04/242106 Presentation Chief Complaint Abdominal pain Hx Obtained From Patient Sudden in Onset? No Onset Occurred Today Symptom Duration Constant Progression since Onset Constant Caused by No trauma by history Review of Systems Free Text ROS Notes Free Text ROS Notes All review of systems negative unless stated in HPI Past Medical History - Adult Stated Complaint ABDOMINAL PAIN X 1 DAY Allergies Coded Allergies: No Known Allergies (01/23/20) Home Medications Reported Medications traZODone (DESYREL) 100 MG PO BEDTIME buPROPion HCL XL (WELLBUTRIN XL) 300 MG PO DAILY LEVOTHYROXINE (LEVOTHROID) 100 MCG PO DAILY Additional Medical History depression Smoking status for patients 13 years old or older: Unknown,if ever smoked Physical Exam Vital Signs Vital Signs First Documented: Result Date Time Pulse Ox 99 02/03 2107 B/P 113/73 02/03 2107 B/P Mean 86 02/03 2107 O2 Delivery Room air 02/03 2107 Temp 99.0 02/03 2107 Pulse 80 02/03 2107 Resp 18 02/03 2107 Last Documented: Result Date Time Pulse Ox 99 02/03 2107 B/P 113/73 02/03 2107 B/P Mean 86 02/03 2107 O2 Delivery Room air 02/03 2107 Temp 99.0 02/03 2107 Pulse 80 02/03 2107 Resp 18 02/03 2107 Review of Vital Signs Reviewed Free Text PE Notes Free Text PE Notes General: Well developed, well appearing Head: Normocephalic, atraumatic EENT: PERRL, SANDRA Neck: Supple Chest: Regular rate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
[2024-06-20 16:57] LABS: Specific Gravity 1.027 (1.005-1.030)
[2024-06-20 16:58] LABS: Specific Gravity 1.027 (1.005-1.030); Urine Bacteria <20 /HPF (<20); Urine Bilirubin NEGATIVE (Negative); Urine Blood 3+ (OVER) (Negative); Urine Clarity Extremely Turbid (Clear); Urine Color Yellow (Yellow); Urine Culture Reflex Order NOT NEEDED; Urine Glucose NEGATIVE (Negative); Urine Ketones NEGATIVE (Negative); Urine Microscopic Reflex YN ORDER UMIC; Urine Mucus Slight /HPF (None Seen); Urine Nitrite NEGATIVE (Negative); Urine Protein NEGATIVE (Negative); Urine Urobilinogen Normal (Normal); Urine WBC Clump Rare /HPF (None Seen); Urine Yeast (Budding) Trace /HPF (None Seen); Urine pH 5.5 (5.0-7.0)
[2024-06-20 17:01] LABS: Barbiturates NEGATIVE (NEGATIVE); Benzodiazepines NEGATIVE (NEGATIVE); Cocaine NEGATIVE (NEGATIVE); METHAMPHETAM NEGATIVE (NEGATIVE); Methadone NEGATIVE (NEGATIVE); Opiates NEGATIVE (NEGATIVE); Phencyclidine NEGATIVE (NEGATIVE); THC Cannibis NEGATIVE (NEGATIVE)
[2024-06-20 17:03] LABS: Absolute Eosinophils 0.2 K/uL (0-0.5); Absolute Lymphocytes (CBC) 2.1 K/uL (0.7-4.9); Absolute Monocytes 0.4 K/uL (0.1-1.3); Absolute Neutrophil 5.4 K/uL (1.8-8.0); Basophils % 0.4 % (0-1.3); Eosinophils % 2.3 % (0-4.4); Hematocrit 34.4 % (36.0-45.0); Hemoglobin 11.9 g/dL (12.0-15.0); Lymphocytes % 25.7 % (15.3-44.8); MCH 28.7 pg (27.0-35.0); MCHC 34.6 g/dL (32.0-36.0); MCV 82.8 fL (80-100); MPV 11.3 fL (7.6-11.3); Monocytes % 5.3 % (3.3-12.3); Neutrophils % 66.3 % (41.7-73.7); Nucleated Red Blood Cells % 0.1 % (0-0); Platelets 208 thou/uL (152-406); RBC Red Blood Cell Count 4.16 M/uL (3.86-4.86); Red Cell Distribution Width 13.6 % (12.1-15.2)
[2024-06-20 17:06] LABS: PT Prothrombin Time 11.1 SECONDS (10-13.0); PTT, Activated Partial Thromb 33.4 SECONDS (27.2-37.4); Protime INR 0.97
[2024-06-20 17:15] LABS: ALT/SGPT 20 U/L (13-56); AST/SGOT 13 U/L (15-37); Albumin 3.3 g/dL (3.4-5.0); Albumin/Globulin Ratio 0.9 (1.1-1.8); Alkaline Phosphatase 73 U/L (45-117); Anion Gap 7.8 mEq/L (5.0-15.0); BUN Blood Urea Nitrogen 14 mg/dL (7-18); Bicarbonate 27 mEq/L (21-32); Bilirubin Direct < 0.2 mg/dL (0-0.2); Bilirubin Total 0.2 mg/dL (0.2-1.0); Globulin 3.7 g/dL (2.3-3.5); Glomerular Filtration Rate 131 ml/min (=/>90); Glucose Level 71 mg/dL (74-106); Potassium 3.8 mEq/L (3.5-5.1); Sodium Level 138 mEq/L (136-145)
--- NOTE | 2024-06-20 20:29 | ER ---
Nurse's Notes [facility] Name: Tere Galindo Age: 18 yrs Sex: Female : 2005 Arrival Date: 06/20/2024 Time: 15:50 Bed 18 Private MD: Diagnosis: Suicidal ideations Presentation: 06/20 15:51 Chief complaint: EMS states: toned out for mental health eval - mental health deputy ld1 unavailable for two hours. Pt states "I am here because I have suicidal thoughts, I want to jump out in front of a moving vehicle.". Coronavirus screen: At this time, the client does not indicate any symptoms associated with coronavirus-19. Ebola Screen: No symptoms or risks identified at this time. Risk Assessment: Do you want to hurt yourself or someone else? Patient reports desire/thoughts of hurting themselves or someone else. Provider notified. Onset of symptoms was June 20, 2024. 15:51 Method Of Arrival: EMS: [facility] ld1 15:51 Acuity: DWAYNE 2 ld1 15:51 Initial Sepsis Screen: Does the patient meet any 2 criteria? No. Patient's initial ld1 sepsis screen is negative. Does the patient have a suspected source of infection? No. Patient's initial sepsis screen is negative. 19:00 Risk Assessment: Do you want to hurt yourself or someone else? Patient reports bm8 desire/thoughts of hurting themselves or someone else. Provider notified. Triage Assessment: 15:52 General: Appears in no apparent distress. comfortable, Behavior is calm, cooperative, ld1 appropriate for age. Pain: Denies pain. EENT: No signs and/or symptoms were reported regarding the EENT system. Neuro: Level of Consciousness is awake, alert, obeys commands, Oriented to person, place, time, situation. Cardiovascular: Capillary refill < 3 seconds Patient's skin is warm and dry. Respiratory: Airway is patent Respiratory effort is even, unlabored. GI: Abdomen is round non-distended. : No signs and/or symptoms were reported regarding the genitourinary system. Derm: No signs and/or symptoms reported regarding the dermatologic system. Musculoskeletal: No signs and/or symptoms reported regarding the musculoskeletal system. 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 - Infectious Disease History:: Denies. - Social history:: Smoking status: Patient denies any tobacco usage or history of. Screenin:54 [facility] ED Fall Risk Assessment (Adult) History of falling in the last 3 months, ld1 including since admission No falls in past 3 months (0 pts) Confusion or Disorientation No (0 pts) Intoxicated or Sedated No (0 pts) Impaired Gait No (0 pts) Mobility Assist Device Used No (0 pt) Altered Elimination No (0 pt) Score/Fall Risk Level 0 - 2 = Low Risk Oriented to surroundings, Hourly rounding (assess needs \\T\\ fall precautionary measures) done. Abuse screen: Denies threats or abuse. Denies injuries from another. Nutritional screening: No deficits noted. Tuberculosis screening: No symptoms or risk factors identified. Assessment: 15:54 Reassessment: See triage assessment. Pt placed in paper scrubs. Sitter at bedside. ld1 16:30 Reassessment: Belongs sent with security. ld1 16:30 Reassessment: Pt states "I have a history of suicidal behavior, I have been thinking ld1 about hurting myself and I want help. I want to jump out infront of a moving vehicle.". 16:50 Reassessment:. Neuro: Level of Consciousness is awake, alert, obeys commands, Oriented ld1 to person, place, time, situation. Cardiovascular: Capillary refill < 3 seconds Patient's skin is warm and dry. Respiratory: Airway is patent Respiratory effort is even, unlabored. 18:21 Reassessment: Patient appears in no apparent distress at this time. No changes from ld1 previously documented assessment. Pt resting in bed with "baby doll" in arms. Patient denies pain at this time. 19:00 General: Appears in no apparent distress. comfortable, Behavior is calm, cooperative, bm8 appropriate for age. Pain: Denies pain. Neuro: No deficits noted. Level of Consciousness is awake, alert, obeys commands, Oriented to person, place, time, situation, Appropriate for age. Cardiovascular: Denies chest pain, Capillary refill < 3 seconds in bilateral fingers Patient's skin is warm and dry. Respiratory: Airway is patent Respiratory effort is even, unlabored, Respiratory pattern is regular, symmetrical. GI: No signs and/or symptoms were reported involving the gastrointestinal system. : No signs and/or symptoms were reported regarding the genitourinary system. EENT: No signs and/or symptoms were reported regarding the EENT system. Derm: No signs and/or symptoms reported regarding the dermatologic system. Musculoskeletal: No signs and/or symptoms reported regarding the musculoskeletal system. 20:08 General: Report given to ABBY Mata at [facility]. acceptance info being given now.. bm8 20:39 Reassessment: security called to release pt's belongings before transfer. bm8 21:15 Reassessment: Patient appears in no apparent distress at this time. No changes from bm8 previously documented assessment. Patient is alert, oriented x 3, equal unlabored respirations, skin warm/dry/pink. Patient denies pain at this time. 21:15 Reassessment: Pt transferred to [facility]. bm8 Vital Signs: 16:50 BP 126 / 79; Pulse 81; Resp 18; Temp 97.2(O); Pulse Ox 100% on R/A; Height 5 ft. 5 in. ld1 ; Pain 0/10; 19:00 BP 125 / 74; Pulse 82; Resp 17; Temp 98.2; Pulse Ox 98% ; Pain 0/10; bm8 21:15 BP 109 / 69; Pulse 75; Resp 18; Temp 98.2; Pulse Ox 98% ; Pain 0/10; bm8 16:50 Pain Scale: Adult ld1 19:00 Pain Scale: Adult bm8 21:15 Pain Scale: Adult bm8 Lola Coma Score: 19:00 Eye Response: spontaneous(4). Motor Response: obeys commands(6). Verbal Response: bm8 oriented(5). Total: 15. 21:15 Eye Response: spontaneous(4). Motor Response: obeys commands(6). Verbal Response: bm8 oriented(5). Total: 15. ED Course: 15:50 Patient arrived in ED. ld1 15:52 Triage completed. ld1 15:52 Arm band placed on right wrist. ld1 15:54 Safety Checks: Personal items have been removed. The door is open or patient has been ld1 placed in a hallway bed/chair. Sitter present at this time. 15:54 Patient has correct armband on for positive identification. Placed in gown. Bed in low ld1 position. Call light in reach. Side rails up X2. Pulse ox on. NIBP on. Door closed. Noise minimized. Warm blanket given. 15:54 No provider procedures requiring assistance completed. ld1 16:05 Stacy Munguia is Attending Physician. ci 16:29 Ning Mcnamara, ABBY is Primary Nurse. ld1 16:49 Urinalysis w/ reflexes Sent. ld1 16:49 Urine Drug Screen Sent. ld1 16:49 Test, Urine Sent. ld1 19:00 Safety Checks: Personal items have been removed. The door is open or patient has been bm8 placed in a hallway bed/chair. Sitter present at this time. 19:00 Patient has correct armband on for positive identification. bm8 19:00 IV is patent, with fluids infusing freely, with good blood return, Flushed right bm8 antecubital with 5 ml normal saline. Patient maintains SpO2 saturation greater than 95% on room air. 19:11 Faxed pt clinicals to [facility] and [facility] for placement. rv1 20:00 Safety Checks: Personal items have been removed. The door is open or patient has been bm8 placed in a hallway bed/chair. Sitter present at this time. 20:28 Provided Education on: need for transfer. bm8 20:38 Patient transferred, IV remains in place. IV discontinued, intact, bleeding controlled, bm8 No redness/swelling at site. Pressure dressing applied. 21:00 Safety Checks: Personal items have been removed. The door is open or patient has been bm8 placed in a hallway bed/chair. Sitter present at this time. Administered Medications: No medications were administered Medication: 15:54 VIS not applicable for this client. ld1 Outcome: 20:28 ER care complete, transfer ordered by . ci 21:15 Transferred by ground EMS Transfer form completed. bm8 21:15 Condition: stable 21:15 Instructed on the need for transfer, Demonstrated understanding of instructions, follow-up care, 21:15 Transferred to other acute care facility: [facility]. vc1 21:30 Patient left the ED. bm8 Signatures: Ning Mcnamara RN RN ld1 Tiesha Brennan RN RN vc1 Keri Tomas rv1 Stacy Munguia Brad RN RN bm8 Corrections: (The following items were deleted from the chart) 17:17 15:51 Risk Assessment: Do you want to hurt yourself or someone else? Patient reports no ld1 desire to harm self or others. ld1 17:18 15:51 Chief complaint: EMS states: toned out for mental health eval - mental health ld1 deputy unavailable for two hours. ld1
--- NOTE | 2024-06-20 20:29 | EDPHYS ---
Physician Documentation [facility] Name: Tere Galindo Age: 18 yrs Sex: Female : 2005 Arrival Date: 06/20/2024 Time: 15:50 Bed 18 Private MD: ED Physician Stacy Munguia HPI: 06/20 16:33 This 18 yrs old Female presents to ER via EMS with complaints of mental health ci evaluation. 16:33 Patient is a 18-year-old female with PMH anxiety, bipolar disorder, hypothyroidism, ci depression who presents to the ER for suicidal thoughts that began this morning, plan to jump in front of a car. Endorses prior suicide attempt by hanging. Patient denies EtOH, drugs. On antidepressant but unknown name, endorses compliance with meds. Denies any HI.. 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 - Infectious Disease History:: Denies. - Social history:: Smoking status: Patient denies any tobacco usage or history of. ROS: 19:12 Constitutional: Negative for fever, chills, and weight loss, Cardiovascular: Negative ci for chest pain, palpitations, and edema, Respiratory: Negative for shortness of breath, cough, wheezing, and pleuritic chest pain, 19:12 Psych: Positive for anxiety, depression, suicidal ideation, Exam: 19:12 Constitutional: This is a well developed, well nourished patient who is awake, alert, ci and in no acute distress. Head/Face: Normocephalic, atraumatic. Eyes: Pupils equal round and reactive to light, extra-ocular motions intact. Lids and lashes normal. Conjunctiva and sclera are non-icteric and not injected. Cornea within normal limits. Periorbital areas with no swelling, redness, or edema. Cardiovascular: Regular rate and rhythm with a normal S1 and S2. No gallops, murmurs, or rubs. Normal PMI, no JVD. No pulse deficits. Respiratory: Lungs have equal breath sounds bilaterally, clear to auscultation and percussion. No rales, rhonchi or wheezes noted. No increased work of breathing, no retractions or nasal flaring. Abdomen/GI: Soft, non-tender, with normal bowel sounds. No distension or tympany. No guarding or rebound. No evidence of tenderness throughout. Back: No spinal tenderness. No costovertebral tenderness. Full range of motion. 19:12 Psych: Patient having thoughts of suicide. Plan for suicide is Plans to jump in front of a car Vital Signs: 16:50 BP 126 / 79; Pulse 81; Resp 18; Temp 97.2(O); Pulse Ox 100% on R/A; Height 5 ft. 5 in. ld1 ; Pain 0/10; 19:00 BP 125 / 74; Pulse 82; Resp 17; Temp 98.2; Pulse Ox 98% ; Pain 0/10; bm8 21:15 BP 109 / 69; Pulse 75; Resp 18; Temp 98.2; Pulse Ox 98% ; Pain 0/10; bm8 16:50 Pain Scale: Adult ld1 19:00 Pain Scale: Adult bm8 21:15 Pain Scale: Adult bm8 Lola Coma Score: 19:00 Eye Response: spontaneous(4). Motor Response: obeys commands(6). Verbal Response: bm8 oriented(5). Total: 15. 21:15 Eye Response: spontaneous(4). Motor Response: obeys commands(6). Verbal Response: bm8 oriented(5). Total: 15. MDM: 16:05 Medical Screening Exam initiated ci 20:27 Differential Diagnosis Suicidal ideation, psychosis, depression, substance abuse, ci schizophrenia. Data reviewed: vital signs, nurses notes. ED course: Patient medically cleared for psychiatric facility. Accepted at [facility].. 06/20 16:31 Order name: Acetaminophen; Complete Time: 19:11 ci 06/20 16:31 Order name: Basic Metabolic Panel; Complete Time: 19:11 ci 06/20 16:31 Order name: CBC with Diff; Complete Time: 19:11 ci 06/20 16:31 Order name: ETOH Level; Complete Time: 19:11 ci 06/20 16:31 Order name: Hepatic Function; Complete Time: 19:11 ci 06/20 16:31 Order name: PT-INR; Complete Time: 19:11 ci 06/20 16:31 Order name: Test, Urine; Complete Time: 19:11 ci 06/20 16:31 Order name: Ptt, Activated; Complete Time: 19:11 ci 06/20 16:31 Order name: Salicylate; Complete Time: 19:11 ci 06/20 16:31 Order name: Urinalysis w/ reflexes; Complete Time: 19:11 ci 06/20 16:31 Order name: Urine Drug Screen; Complete Time: 19:11 ci 06/20 16:31 Order name: EKG - Nurse/Tech; Complete Time: 16:50 ci 06/20 16:31 Order name: IV Saline Lock; Complete Time: 16:49 ci 06/20 16:31 Order name: Labs collected and sent; Complete Time: 16:50 ci 06/20 16:31 Order name: Suicide Precautions; Complete Time: 16:49 ci 06/20 16:31 Order name: Suicide Screening ([place]); Complete Time: 16:49 ci Administered Medications: No medications were administered Disposition Summary: 06/20/24 20:28 Transfer Ordered Notes: Transfer Location: Other Acute Care Facility ci Reason: Higher level of care ci Condition: Stable ci Problem: an acute exacerbation ci Symptoms: have worsened ci Accepting Physician: Seth Nichole(06/20/24 21:30) bm8 Diagnosis - Suicidal ideations ci Discharge Instructions: - Discharge Summary Sheet rv1 Forms: - SBAR form rv1 - Medication Reconciliation Form ci Signatures: Dispatcher [employer] EDNing Whitney RN RN ld1 Stacy Munguia ci Richard Jarvis RN RN bm8 Corrections: (The following items were deleted from the chart) 16:32 16:32 ACETAMINOPHEN+C.LAB.BRZ ordered. EDMS EDMS 16:32 16:32 BASIC METABOLIC PANEL+C.LAB.BRZ ordered. EDMS EDMS 16:32 16:32 CBC+H.LAB.BRZ ordered. EDMS EDMS 16:32 16:32 ETHANOL+C.LAB.BRZ ordered. EDMS EDMS 16:32 16:32 HEPATIC FUNCTION+C.LAB.BRZ ordered. EDMS EDMS 16:32 16:32 PROTIME (+INR)+COAG.LAB.BRZ ordered. EDMS EDMS 16:32 16:32 Test, Urine+UC.LAB.BRZ ordered. EDMS EDMS 16:32 16:32 PTT, ACTIVATED+COAG.LAB.BRZ ordered. EDMS EDMS 16:32 16:32 SALICYLATE+C.LAB.BRZ ordered. EDMS EDMS 16:32 16:32 Urinalysis+U.LAB.BRZ ordered. EDMS EDMS 16:32 16:32 URINE DRUG SCREEN+UC.LAB.BRZ ordered. EDMS EDMS 21:30 20:28 [facility] bm8
[2024-06-20 22:02] VITALS: TEMP 98.2; O2SAT 98
[2024-06-20 22:04] VITALS: BP 109/69
== END 2024-06-20 21:30 ==
LOC: ER 15:50
DX: R45.851 Suicidal ideations (principal); F20.9 Schizophrenia, unspecified
CPT/HCPCS: 36415; 80048; 80076; 80143; 80179; 80307; 81001; 81025; 82077; 85025; 85610; 85730; 99285

== ENCOUNTER 2024-12-09 18:25 | Emergency (ER) | payer OTHER ==
--- OUTSIDE RECORDS SUMMARY | 2024-12-09 18:32 | XMS REPORT | Continuity of Care Document ---
Author Name Unknown Address [address] [facility] Doc. [address] [place] [address] [facility] Address [address] [facility]. [address] [place] [address] Care Team Providers Care Medical Front Desk Specialist Name Role Phone Tamika Her Primary Care Physician [phone] RAMONA RUBIN Attending Clinician Unavailable ELSIE SIMPSON Attending Clinician Unavailable CHANTALE HURD Attending Clinician Unavailable Raymond Suarez Attending Clinician Unavailable Johanne MORA, Maida Thomas Attending Clinician Unavaildavid e Elmer Maddox NP Attending Clinician ELMER MADDOX Attending Clinician Unavailable ELMER MADDOX Attending Clinician Unavailable Unknown, Attending Attending Clinician Unavailab RUBA Park Attending Clinician UnavailYING Rosales Attending Clinician Unavailable SUGEY LOJA Attending Clinician Unavailable Jessie Reinoso LCSW Attending Clinician [phone] Ying Norris Attending Clinician [phone], [facility] Attending Clinician Unavailable CARINE SAGASTUME Attending Clinician UnavailMaximus Reese Attending Clinician Unavailable Carine Sagastume MD Attending Clinician [phone] Doctor Unassigned, [place] Attending Clinician U AKBAR Pina Attending Clinician Unavailable YESIKA HANDY Attending Clinician Unavailable SHADE JULIEN Attending Clinician Unavailable Shade Julien MD Attending Clinician [phone] MEHRAN BENNETT Attending Clinician Unavaila [facility] Pcp, Patient Does Not Have A Attending Clinician Physician, No Primary or Family Admitting Clinic morro Unavailable CARINE SAGASTUME Admitting Clinician Unavaildavid valdivia Payers Payer Name Policy Type Policy Number Effective Date Expirati on Date Source MEDICAID CI [id number] [facility] D [id number] [place] [id number] 2024 00:00:00 [place] Medicaid [id number] 2024 00:00:00 [facility] [id number] 2023 00:00:00 [facility] [id number] 2022 00:00:00 Problems Condition Name Condition Details [...] s DA Active U 2019-03 00:00: 00 [facility] No Known Allergie s DA Active U 2019-1 0-17 00:00: 00 [facility] NO KNOWN ALLERGIE S Drug Class Active [facility] Social History Social Habit Start Date Stop Date Quantity Comments Source [facility] Alcoholic beverage intake 2024-11-22 00:00:00 2024-11-22 00:00:00 Ex-drinker (finding) [facility] Alcohol intake 2023-01-04 00:00:00 2023-01-04 00:00:00 Ex-drinker (finding) [facility] Exposure to SARS-CoV-2 (event) 2022-07-10 00:00:00 2022-07-20 10:33:00 Not sure [facility] History of Social function 2022-07-03 00:00:00 2022-07-03 00:00:00 [facility] Tobacco use and exposure 2022-07-03 00:00:00 2022-07-03 00:00:00 Smokeless tobacco non-user [facility] Sex assigned at 2004 00:00:00 2005 00:00:00 [facility] Smoking Status Start Date Stop Date Source Social History Lauren mcgee Never smoked tobacco [facility] Medications Ordered Medication Name Filled Medication Name Start Date Stop Date Current Medication? Ordering Clinician Indication Dosage Frequency Signature (SIG) Comments Components Source OXcarbazepi ne 300 mg Tb24 11-22 20:14: 07 Yes 300mg Take 300 mg by mouth in the morning and 300 mg in the evening. Take with meals. [facility] busPIRone 10 mg Cap 11-22 20:12: 46 Yes 10mg Take 10 mg by mouth in the morning and 10 mg in the evening. Take with meals. [facility] levothyroxi ne 100 mcg tablet 11-22 20:11: 55 Yes 100ug Take 1 tablet by mouth every morning. [facility] ARIPiprazol e 20 mg tbss 11-22 20:10: 25 Yes 20mg Take 20 mg by mouth in the morning. [facility] benzonatate 100 mg capsule 11-22 00:00: 00 Yes [id number] 100mg Take 1 capsule by mouth every 8 hours as needed for Cough. [facility] cetirizine 10 mg tablet 11-22 00:00: 00 Yes [id number] 10mg Take 1 tablet by mouth in the morning. [facility] fluticasone propionate 50 mcg/actuati on nasal spray 11-22 00:00: 00 Yes [id number] 2{spray } Use 2 sprays in each nostril in the morning. [facility] cefTRIAXone (ROCEPHIN) injection 1,000 mg 10-07 16:34: 00 10-07 16:56 :00 No [id number] 1000mg 1,000 mg, Intramuscu lar, ONCE, 1 dose, On 10/07/24 at 1145, Routine, Reason for Anti-Infec tive: Documented Infection, Documented Infection Site: Skin / Soft Tissue, Duration of therapy: Once (ED) [facility] mupirocin 2 % ointment 10-07 00:00: 00 10-18 04:59 :00 Yes [id number] Apply to area(s) 3 times daily for [address] [facility] sulfamethox azole-trime thoprim (BACTRIM DS) 800-160 mg per tablet 10-07 00:00: 00 10-15 04:59 :00 Yes [id number] 1{tbl} Take 1 tablet by mouth in the morning and 1 tablet in the evening. Do all this for [address] [facility] sertraline 100 mg tablet 09-11 00:00: 00 Yes 1mg [facility] oxcarbazepi ne 300 mg tablet 09-11 00:00: 00 Yes 1mg [facility] buspirone 10 mg tablet 09-11 00:00: 00 Yes 1mg [facility] trazodone 50 mg tablet 09-11 00:00: 00 Yes 1mg [facility] levothyroxi ne 100 mcg tablet 0 6-23 00:00: 00 Yes 1mcg [facility] levothyroxi ne 75 mcg tablet 0 4- 00:00: 00 Yes 1mcg [facility] buspirone 10 mg tablet 0 4- 00:00: 00 Yes 1mg [facility] oxcarbazepi ne 600 mg tablet 2024-0 4- 00:00: 00 Yes 1mg [facility] trazodone 50 mg tablet 0 4- 00:00: 00 Yes 1mg [facility] ziprasidone 20 mg capsule 0 4- 00:00: 00 Yes 1mg [facility] sertraline 100 mg tablet 0 3-30 00:00: 00 Yes 1mg [facility] trazodone 50 mg tablet 0 3-30 00:00: 00 Yes 1mg [facility] buspirone 10 mg tablet 0 3-30 00:00: 00 Yes 1mg [facility] oxcarbazepi ne 300 mg tablet 0 3-30 00:00: 00 Yes 1mg [facility] oxcarbazepi ne 600 mg tablet 0 3-30 00:00: 00 Yes 1mg [facility] Abilify 20 mg tablet 0 3-30 00:00: 00 Yes 1mg [facility] levothyroxi ne 75 mcg tablet 0 3-28 00:00: 00 Yes 1mcg [facility] levothyroxi ne 50 mcg tablet 0 3- 00:00: 00 Yes 1mcg [facility] sertraline 100 mg tablet 0 3- 00:00: 00 Yes 1mg [facility] trazodone 50 mg tablet 2024-0 3- 00:00: 00 Yes 1mg [facility] buspirone 10 mg tablet 2024-0 3-04 00:00: 00 Yes 1mg [facility] oxcarbazepi ne 300 mg tablet 2024-0 3-04 00:00: 00 Yes 1mg [facility] oxcarbazepi ne 600 mg tablet 0 3-04 00:00: 00 Yes 1mg [facility] Abilify 20 mg tablet 0 3- 00:00: 00 Yes 1mg [facility] sertraline 100 mg tablet 0 2- 00:00: 00 Yes 1mg [facility] trazodone 50 mg tablet 0 2- 00:00: 00 Yes 1mg [facility] buspirone 10 mg tablet 0 2- 00:00: 00 Yes 1mg [facility] oxcarbazepi ne 300 mg tablet 0 2- 00:00: 00 Yes 1mg [facility] oxcarbazepi ne 600 mg tablet 0 2- 00:00: 00 Yes 1mg [facility] Abilify 20 mg tablet 0 2- 00:00: 00 Yes 1mg [facility] levothyroxi ne 50 mcg tablet 0 1- 00:00: 00 Yes 1mcg [facility] levothyroxi ne 50 mcg tablet 0 1-22 00:00: 00 Yes 1mcg [facility] clindamycin HCl 300 mg capsule 0 1-18 00:00: 00 Yes 1mg [facility] sertraline 100 mg tablet 0 1-05 00:00: 00 Yes 1mg [facility] trazodone 50 mg tablet 0 1-05 00:00: 00 Yes 1mg [facility] buspirone 10 mg tablet 0 1-05 00:00: 00 Yes 1mg [facility] oxcarbazepi ne 300 mg tablet 0 1-05 00:00: 00 Yes 1mg [facility] oxcarbazepi ne 600 mg tablet 0 1-05 00:00: 00 Yes 1mg [facility] Abilify 20 mg tablet 0 1-05 00:00: 00 Yes 1mg [facility] levothyroxi ne 25 mcg tablet 2023-03 2- 00:00: 00 Yes 1mcg [facility] sertraline 100 mg tablet 2023-03 2-08 00:00: 00 Yes 1mg [facility] trazodone 50 mg tablet 2023-03 00:00: 00 Yes 1mg [facility] buspirone 10 mg tablet 2023-03 00:00: 00 Yes 1mg [facility] oxcarbazepi ne 300 mg tablet 2023-03 00:00: 00 Yes 1mg [facility] oxcarbazepi ne 600 mg tablet 2023-03 00:00: 00 Yes 1mg [facility] Abilify 20 mg tablet 2023-03 00:00: 00 Yes 1mg [facility] sertraline 100 mg tablet 2023-03 0- 00:00: 00 Yes 1mg [facility] Abilify 20 mg tablet 2023-03 00:00: 00 Yes 1mg [facility] oxcarbazepi ne 150 mg tablet 2023-03 00:00: 00 Yes 1mg [facility] trazodone 50 mg tablet 2023-03 0 00:00: 00 Yes 1mg [facility] buspirone 5 mg tablet 2023-03 00:00: 00 Yes 1mg [facility] albuterol sulfate HFA 90 mcg/actuati on aerosol inhaler 2023-03 00:00: 00 Yes 1mcg/ac tuation [facility] levothyroxi ne 25 mcg tablet 2023-03 00:00: 00 Yes 1mcg [facility] sertraline 100 mg tablet 2023-03 00:00: 00 Yes 1mg [facility] oxcarbazepi ne 150 mg tablet 2023-03 00:00: 00 Yes 1mg [facility] trazodone 50 mg tablet 2023-03 00:00: 00 Yes 1mg [facility] Abilify 15 mg tablet 2023-03 00:00: 00 Yes 1mg [facility] buspirone 5 mg tablet 2023-03- 00:00: 00 Yes 1mg [facility] sulfamethox azole-trime thoprim (BACTRIM DS) 800-160 mg per tablet - 00:00: 00 11-22 00:00 :00 No [id number] 1{tbl} Take 1 tablet by mouth in the morning and 1 tablet in the evening. [facility] ascorbic acid (VITAMIN C ORAL) 11-24 19:58: 18 11-22 00:00 :00 No .6mg Take by mouth. [facility] haloperidoL 10 mg tablet 11-24 19:58: 18 11-22 00:00 :00 No 10mg Take [address] [facility] hydrOXYzine 50 mg capsule 11-24 19:58: 18 11-22 00:00 :00 No 50mg Take 1 capsule by mouth 3 (three) times daily as needed for Itching. [facility] Zinc 50 mg Tab 11-24 19:58: 18 11-22 00:00 :00 No Take by mouth. [facility] OLANZapine 10 mg tablet 11-24:58: 18 11-22 00:00 :00 No 10mg Take 1 tablet by mouth in the morning. [facility] sulfamethox azole-trime thoprim (BACTRIM DS) 800-160 mg per tablet 11-24 00:00: 00 11-25 00:00 :00 No [id number] 1{tbl} Take 1 tablet by mouth in the morning and 1 tablet in the evening. Do all this for [address] [facility] mupirocin 2 % topical ointment 11-23 00:00: 00 Yes 1% [facility]am[facility] D[facility] hydroxyzine HCl 25 mg tablet 11-16 00:00: 00 Yes mg [facility] sertraline 100 mg tablet 11-16 00:00: 00 Yes 1mg Familia Donal Seymour aripiprazol e 10 mg tablet 11-16 00:00: 00 Yes 1mg Familia F Seymour ARIPiprazol e 10 mg tablet 11-16 00:00: 00 11-22 00:00 :00 No 10mg Take 1 tablet by mouth at bedtime. [facility] hydroxyzine HCl 25 mg tablet 10-15 00:00: 00 Yes mg [facility]ja sertraline 100 mg tablet 10-15 00:00: 00 Yes 1mg [facility] aripiprazol e 10 mg tablet 10-15 00:00: 00 Yes 1mg [facility] sertraline 100 mg tablet 09-30 00:00: 00 Yes mg [facility] aripiprazol e 10 mg tablet 09-30 00:00: 00 Yes mg [facility] aripiprazol e 5 mg tablet 09-21 [...] 1 tablet by mouth in the morning. [facility] OLANZapine 20 mg tablet 2022-03 10:53: 32 01-04 00:00 :00 No 20mg Take 1 tablet by mouth at bedtime. [facility] metFORMIN 1,000 mg 24 hr tablet 2022-03 10:36: 20 01-04 00:00 :00 No 1000mg Take 1 tablet by mouth in the morning and 1 tablet in the evening. Take with meals. [facility] hydrOXYzine 50 mg capsule 2022-03 10:36: 19 Yes 50mg Take 1 capsule by mouth 3 (three) times daily as needed for Itching. [facility] OLANZapine 10 mg tablet 2022-0316 10:36: 17 01-04 00:00 :00 No 10mg Take 1 tablet by mouth in the morning. [facility] polyethylen e glycol 3350 (MIRALAX) 17 gram/dose powder 2022-03 10:35: 58 01-04 00:00 :00 No 17g Take 17 g by mouth in the morning. [facility] prazosin HCl (PRAZOSIN ORAL) 2022-03 10:35: 55 01-04 00:00 :00 No 8mg Take 8 mg by mouth in the morning. [facility] traZODone 50 mg tablet 2022-03 10:35: 49 01-04 00:00 :00 No 50mg Take 1 tablet by mouth at bedtime. [facility] traZODone 100 mg tablet 2022-03 10:35: 45 01-04 00:00 :00 No 100mg Take 1 tablet by mouth at bedtime. [facility] divalproex ER 500 mg 24 hr tablet 2022-03 10:35: 11 01-04 00:00 :00 No 1000mg Take 2 tablets by mouth every 24 (twenty-fo ur) hours. [facility] TAKE 1 TABLET BY MOUTH EVERYDAY AT BEDTIME 2022-03 00:00: 00 Yes [facility] TAKE ONE CAPSULE BY MOUTH AT BEDTIME 2022-03 00:00: 00 11-23 00:00 :00 No 2 [facility] OLANZA/FLUO X 6-25MG 12-07 00:00: 00 Yes [...] 00:00 :00 No [facility] levothyroxi ne (SYNTHROID) 75 mcg tablet 07-23 00:00: 00 11-22 00:00 :00 No [id number] 75ug Take 1 tablet by mouth every morning. [facility] LEVOTHYROXI N 75MCG 07-23 00:00: 00 11-23 00:00 :00 No [facility] BUPROP 24 XL 300MG 07-23 00:00: 00 11-23 00:00 :00 No [facility] buPROPion XL (WELLBUTRIN XL) 300 mg 24 hr tablet 07-23 00:00: 00 01-04 00:00 :00 No [id number] 300mg Take 1 tablet by mouth in the morning. [facility] buPROPion XL (WELLBUTRIN XL) 150 mg 24 hr tablet 07-23 00:00: 00 07-23 00:00 :00 No [id number] 150mg Take 1 tablet by mouth in the morning and 1 tablet in the evening. [facility] traZODone 50 mg tablet 07-20 10:40: 37 Yes 50mg Take 1 tablet by mouth at bedtime. [facility] traZODone 100 mg tablet 07-20 10:39: 45 Yes 100mg Take 1 tablet by mouth at bedtime. [facility] hydrOXYzine 50 mg capsule 07-20 10:39: 45 Yes 50mg Take 1 capsule by mouth 3 (three) times daily as needed for Itching. [facility] OLANZapine 20 mg tablet 07-20 10:37: 48 Yes 20mg Take 1 tablet by mouth at bedtime. [facility] OLANZapine 10 mg tablet 07-20 10:37: 48 Yes 10mg Take 1 tablet by mouth in the morning. [facility] LYBALVI 20-10MG 07-20 00:00: 00 11-23 00:00 :00 Rama [facility]huja TAKE 4 CAPSULES BY MOUTH AT BEDTIME FOR NIGHTMARES 07-14 00:00: 00 11-23 00:00 :00 No Familia Donal [facility] TAKE 1 TO 2 TABLETS BY MOUTH AT BEDTIME 07-14 00:00: 00 11-23 00:00 :00 No [facility]am[facility] Donal [facility] DIVALPROEX 500MG DR 07-14 00:00: 00 [...] tablet in the evening. Take with meals. [facility] divalproex ER 500 mg 24 hr tablet 07-03 09:37: 07 Yes 1000mg Take 2 tablets by mouth every 24 (twenty-fo ur) hours. [facility] prazosin HCl (PRAZOSIN ORAL) 07-03 09:17: 01 Yes 8mg Take 8 mg by mouth in the morning. [facility] OLANZapine (ZYPREXA) 20 mg tablet 07-03 09:17: 01 Yes 20mg Take 1 tablet by mouth at bedtime. [facility] OLANZapine (ZYPREXA) 10 mg tablet 07-03 09:17: 01 Yes 10mg Take 1 tablet by mouth in the morning. [facility] desmopressi n acetate (DDAVP ORAL) 07-03 09:17: 01 Yes .6mg Take 0.6 mg by mouth in the morning. [facility] haloperidoL 10 mg tablet 07-03 09:17: 01 Yes 10mg Take [address] [facility] traZODone 100 mg tablet 07-03 09:17: 01 Yes 100mg Take 1 tablet by mouth at bedtime. [facility] hydrOXYzine (VISTARIL) 50 mg capsule 07-03 09:17: 01 Yes 50mg Take 1 capsule by mouth 3 (three) times daily as needed for Itching. [facility] Zinc 50 mg Tab 07-03 09:17: 01 Yes Take by mouth. [facility] Zinc 50 mg Tab 07-03 09:17: 01 Yes Take by mouth. [facility] polyethylen e glycol 3350 (MIRALAX) 17 gram/dose powder 07-03 09:12: 49 Yes 17g Take 17 g by mouth in the morning. [facility] TAKE 1 TABLET BY MOUTH EVERY DAY IN THE MORNING 07-03 00:00: 00 11-23 00:00 :00 No [facility] D[facility] levothyroxi ne 100 mcg tablet 07-03 00:00: 00 07-23 00:00 :00 No [id number] 100ug Take 1 tablet by mouth every morning. [facility] Dose Unknown 09-26 00:00: 00 Yes [facility] Dose Unknown 09-26 00:00: 00 Yes Familiagisel Ahuja Dose Unknown 09-26 00:00: 00 Yes [facility] Wellbutrin XL 150 mg 24 hr tablet, extended release 09-11 00:00: 00 Yes 1mg [facility] Dose Unknown 09-11 00:00: 00 Yes Familiagisel Ahuja Dose Unknown 09-11 00:00: 00 Yes [...] mg tablet 08-02 00:00: 00 Yes 1mg Faimlia Ahuja clonidine HCl 0.1 mg tablet 08-02 00:00: 00 Yes 1mg [facility] Prozac 10 mg capsule 08-02 00:00: 00 Yes 1mg [facility] Dose [...] tablet 04-30 00:00: 00 Yes 1mg [facility] Depakote 500 mg tablet,shireen yed release 04-30 00:00: 00 Yes 1mg [facility] levothyroxi ne 100 mcg tablet 04-10 00:00: 00 07-03 00:00 :00 No 100ug Take 1 tablet by mouth every morning. [facility] ABILIFY 10 mg tablet 03-27 00:00: 00 07-03 00:00 :00 [facility] 03-26 00:00: 00 Yes 1mg [facility] guanfacine 1 mg tablet 03-26 00:00: 00 Yes 15mg [facility] Depakote ER 250 mg tablet,exte nded release 03-26 00:00: 00 Yes 1mg [facility] Depakote 500 mg tablet,shireen yed release 03-26 00:00: 00 Yes 1mg [facility] divalproex ER 250 mg 24 hr tablet 03-26 00:00: 00 07-03 00:00 :[address] [facility] divalproex 500 mg EC tablet 03-26 00:00: 00 07-03 00:00 :00 No 1000mg Take [address] [facility] guanFACINE 1 mg tablet 03-26 00:00: 00 07-03 00:00 :[address] [facility] Abilify 10 mg tablet 2015-03 00:00: 00 [...] Influenza, seasonal, inj 2019-01-23 00:00:00 Completed [facility] D[facility] influenza, injectable influenza, injectable 2017-02-04 00:00:00 Completed [facility] HPV9 HPV9 2017-02-04 00:00:00 Completed [facility] D[facility] HPV9 HPV9 2016-01-30 00:00:00 Completed [facility] D[facility] meningococcal MCV4P meningococcal MCV4P 00:00:00 Completed [facility] D[facility] Tdap Tdap 2016-01-30 00:00:00 Completed [facility] IPV IPV 2008-07-09 00:00:00 Completed [facility] D[facility] DTaP, unspecified formul DTaP, unspecified formul 2008-07-09 00:00:00 Completed [facility] Hep A, ped/adol, 2 dose Hep A, ped/adol, 2 dose 2008-03-07 00:00:00 Completed [facility]am[facility] Donal Seymour Hib (PRP-T) Hib (PRP-T) 2006-07-02 00:00:00 Completed [facility] Donal [facility] MMRV MMRV 2006-07-02 00:00:00 Completed [facility] Donal Seymour pneumococcal conjugate P pneumococcal conjugate P 2006-07-02 00:00:00 Completed Fam[facility] Donal Seymour DTaP-Hep B-IPV DTaP-Hep B-IPV 2006-07-02 00:00:00 Completed [facility] D[facility] Hep A, ped/adol, 2 dose Hep A, ped/adol, 2 dose 2005-09-10 00:00:00 Completed Fam[facility] Donal Seymour Hib (PRP-T) Hib (PRP-T) 2005-09-10 00:00:00 Completed [facility]am[facility] Donal Seymour MMR MMR 2005-09-10 00:00:00 Completed [facility] Donal Seymour pneumococcal conjugate P pneumococcal conjugate P 2005-09-10 00:00:00 Completed Fam[facility] Donal Seymour varicella varicella 2005-09-10 00:00:00 Completed Familiagisel Ahuja DTaP-Hep B-IPV DTaP-Hep B-IPV 2005-09-10 00:00:00 Completed [facility] Hib (PRP-T) Hib (PRP-T) 2005-05-13 00:00:00 Completed [facility] pneumococcal conjugate P pneumococcal conjugate P 2005-05-13 00:00:00 Completed [facility] DTaP-Hep B-IPV DTaP-Hep B-IPV 2005-05-13 00:00:00 Completed [facility] Hib (PRP-T) Hib (PRP-T) 2004 00:00:00 Completed [facility] pneumococcal conjugate P pneumococcal conjugate P 2004 00:00:00 Completed [facility] DTaP-Hep B-IPV DTaP-Hep B-IPV 2004 00:00:00 Completed Fam[facility]ja Hib (PRP-T) Hib (PRP-T) 2004 00:00:00 [...] Name Observation Time Observation Value Comments S ource Systolic blood pressure 2024-11-23 01:05:00 136 mm[Hg] [facility] Diastolic blood pressure 2024-11-23 01:05:00 61 mm[Hg] [facility] Heart rate 2024-11-23 01:05:00 92 /min [facility] Body temperature 2024-11-23 01:05:00 36.56 Ramona [facility] Respiratory rate 2024-11-23 01:05:00 18 /min [facility] Body weight 2024-11-23 01:05:00 115.622 kg [facility] Oxygen saturation in Arterial blood by Pulse oximetry 2024-11-23 01:05:00 98 /min [facility] Systolic blood pressure 2024-10-07 16:19:00 119 mm[Hg] [facility] Diastolic blood pressure 2024-10-07 16:19:00 77 mm[Hg] [facility] Heart rate 2024-10-07 16:19:00 102 /min [facility] Body temperature 2024-10-07 16:19:00 36.56 Ramona [facility] Respiratory rate 2024-10-07 16:19:00 17 /min [facility] Body height 2024-10-07 16:19:00 162.6 cm [facility] Body weight 2024-10-07 16:19:00 113.399 kg [facility] BMI 2024-10-07 16:19:00 42.91 kg/m2 [facility] Oxygen saturation in Arterial blood by Pulse oximetry 2024-10-07 16:19:00 98 /min [facility] Systolic blood pressure 2023-11-26 00:58:00 118 mm[Hg] [facility] Diastolic blood pressure 2023-11-26 00:58:00 73 mm[Hg] [facility] Heart rate 2023-11-26 00:58:00 77 /min [facility] Body temperature 2023-11-26 00:58:00 36.39 Ramona [facility] Respiratory rate 2023-11-26 00:58:00 18 /min [facility] Body weight 2023-11-26 00:58:00 102.059 kg [facility] Oxygen saturation in Arterial blood by Pulse oximetry 2023-11-26 00:58:00 98 /min [facility] Systolic blood pressure 2023-01-04 15:24:00 131 mm[Hg] [facility] Diastolic blood pressure 2023-01-04 15:24:00 76 mm[Hg] [facility] Heart rate 2023-01-04 15:24:00 83 /min [facility] Body temperature 2023-01-04 15:24:00 37.17 Ramona [facility] Respiratory rate 2023-01-04 15:24:00 16 /min [facility] Body weight 2023-01-04 15:24:00 96.798 kg [facility] Oxygen saturation in Arterial blood by Pulse oximetry 2023-01-04 15:24:00 97 /min [facility] Systolic blood pressure 2022-12-04 18:17:00 125 mm[Hg] [facility] Diastolic blood pressure 2022-12-04 18:17:00 82 mm[Hg] [facility] Heart rate 2022-12-04 18:17:00 92 /min [facility] Body temperature 2022-12-04 18:17:00 35.94 Ramona [facility] Body height 2022-12-04 18:17:00 160 cm [facility] Body weight 2022-12-04 18:17:00 95.346 kg [facility] BMI 2022-12-04 18:17:00 37.24 kg/m2 [facility] Body mass index (BMI) [Percentile] Per age and sex 2022-12-04 18:17:00 98.18 % [facility] Oxygen saturation in Arterial blood by Pulse oximetry 2022-12-04 18:17:00 97 /min [facility] Systolic blood pressure 2022-07-20 15:33:00 118 mm[Hg] [facility] Diastolic blood pressure 2022-07-20 15:33:00 79 mm[Hg] [facility] Heart rate 2022-07-20 15:33:00 88 /min [facility] Body temperature 2022-07-20 15:33:00 36 Ramona [facility] Respiratory rate 2022-07-20 15:33:00 16 /min [facility] Body height 2022-07-20 15:33:00 162.6 cm [facility] Body weight 2022-07-20 15:33:00 106.958 kg [facility] BMI 2022-07-20 15:33:00 40.47 kg/m2 [facility] Body mass index (BMI) [Percentile] Per age and sex 2022-07-20 15:33:00 98.86 % [facility] Oxygen saturation in Arterial blood by Pulse oximetry 2022-07-20 15:33:00 98 /min [facility] Systolic blood pressure 2022-07-03 14:08:00 102 mm[Hg] [facility] Diastolic blood pressure 2022-07-03 14:08:00 71 mm[Hg] [facility] Heart rate 2022-07-03 14:08:00 96 /min [facility] Body temperature 2022-07-03 14:08:00 36.44 Ramona [facility] Respiratory rate 2022-07-03 14:08:00 18 /min [facility] Body height 2022-07-03 14:08:00 162.6 cm [facility] Body weight 2022-07-03 14:08:00 103.148 kg [facility] BMI 2022-07-03 14:08:00 39.03 kg/m2 [facility] Body mass index (BMI) [Percentile] Per age and sex 2022-07-03 14:08:00 98.68 % [facility] Oxygen saturation in Arterial blood by Pulse oximetry 2022-07-03 14:08:00 100 /min [facility] BP Systolic 2024-09-11 08:32:00 122 mm[Hg] Step hen F Seymour BP Diastolic 2024-09-11 08:32:00 81 mm[Hg] Doc phen F Seymour Weight Measured 2024-09-11 08:32:00 248.80 pounds Familia F Seymour Height Measured 2024-09-11 08:32:00 60.00 inches Familia F Seymour Body Temperature 2024-09-11 08:32:00 97.60 degrees Familia F Seymour Heart Rate 2024-09-11 08:32:00 87.00 /min Mikki en F Seymour Respiratory Rate 2024-09-11 08:32:00 18.00 /min Familia F Seymour BP Systolic 2024-09-07 14:21:00 125 mm[Hg] Step hen F Seymour BP Diastolic 2024-09-07 14:21:00 78 mm[Hg] Doc phen F Seymour Weight Measured 2024-09-07 14:21:00 250.60 pounds Familia F Seymour Height Measured 2024-09-07 14:21:00 60.00 inches Familia F Seymour Body Temperature 2024-09-07 14:21:00 98.10 degrees Familia F Seymour Heart Rate 2024-09-07 14:21:00 68.00 /min Mikki en F Seymour Respiratory Rate 2024-09-07 14:21:00 18.00 /min Familia F Seymour BP Systolic 2024-06-10 13:21:00 106 mm[Hg] Step [...] Seymour Respitory Rate 2023-09-23 13:54:01 [facility] Systolic (mm Hg) 2023-09-23 13:53:56 [facility] Diastolic (mm Hg) 2023-09-23 13:53:56 [facility] Heart Rate 2023-09-23 13:53:56 [facility] Temperature Oral (F) 2023-09-23 13:53:39 98.6 F [facility] Temperature Oral (F) 2023-09-23 08:25:00 98.4 F [facility] Heart Rate 2023-09-23 08:25:00 [facility] Respitory Rate 2023-09-23 08:25:00 [facility] Systolic (mm Hg) 2023-09-23 08:25:00 [facility] Diastolic (mm Hg) 2023-09-23 08:25:00 [facility] Temperature Oral (F) 2023-09-23 03:25:00 97.9 F [facility] Heart Rate 2023-09-23 03:25:00 [facility] Respitory Rate 2023-09-23 03:25:00 [facility] Systolic (mm Hg) 2023-09-23 03:25:00 [facility] Diastolic (mm Hg) 2023-09-23 03:25:00 [facility] Height 2023-09-22 20:28:00 160.02 cm [facility] BMI Calculated 2023-09-22 20:28:00 [facility] Weight 2023-09-22 20:28:00 [facility] BP [...] Body Temperature 2016-04-30 09:35:00 98.40 degrees Familia Ahuja Heart Rate 2016-04-30 09:35:00 105.00 /min Step hen F Seymour Respiratory Rate 2016-04-30 09:35:00 18.00 /min Familia Ahuja BP Systolic 2016-02-20 10:15:00 100 mm[Hg] Elliot hen Donal Ahuja BP Diastolic 2016-02-20 10:15:00 58 mm[Hg] Doc phen F Seymuor Weight Measured 2016-02-20 10:15:00 117.40 pounds Familia Ahuja Height Measured 2016-02-20 10:15:00 60.00 inches Familia Ahuja Body Temperature 2016-02-20 10:15:00 98.20 degrees Familia Ahuja Heart Rate 2016-02-20 10:15:00 74.00 /min Mikki en F Seymour Respiratory Rate 2016-02-20 10:15:00 18.00 /min Familia Ahuja Procedures Procedure Date / Time Performed Performing Clinician Source POCT MOLECULAR COVID 2024-11-23 01:09:00 Unknown, Attending [facility] POCT MOLECULAR STREP 2024-11-23 01:07:00 Unknown, Attending [facility] FREE T4 2023-01-04 16:21:00 Junior [facility] T3 UPTAKE 2023-01-04 16:21:00 Junior [facility] THYROID STIMULATING HORMONE 2023-01-04 16:21:00 Pacheco [facility] COMP. METABOLIC PANEL (35853) 2023-01-04 16:21:00 Junior [facility] LIPID PANEL (74177)(TOTAL CHOLESTEROL, TRIGLYCERIDES, HDL) 2023-01-04 16:21:00 Junior [facility] CBC WITH DIFF 2023-01-04 16:21:00 Pacheco [facility] GLYCOSYLATED HEMOGLOBIN (A1C) 2023-01-04 16:21:00 Pacheco [facility] URINALYSIS 2023-01-04 16:21:00 Junior [facility] FREE T3 2023-01-04 [facility] 2022-08-24 15:47:55 Carine Sagastume [facility] INSURANCE CORRESPONDENCE 2022-08-11 05:01:00 Doctor Unassigned, [place] [facility] CORTISOL AM 2022-07-20 16:10:00 Carine Sagastume [facility] PROLACTIN 2022-07-20 16:10:00 Carine Sagastume [facility] THYROID STIMULATING HORMONE 2022-07-20 16:10:00 Carine Sagastume [facility] COMP. METABOLIC PANEL (43162) 2022-07-20 16:10:00 Carine Sagastume [facility] LIPID PANEL (17468)(TOTAL CHOLESTEROL, TRIGLYCERIDES, HDL) 2022-07-20 16:10:00 Carine Sagastume [facility] ADRENOCORTICOTROPIC HORMONE 2022-07-20 16:10:00 Carine Sagastume [facility] THYROID PEROXIDASE (TPO) AB 2022-07-20 16:10:00 Carine Sagastume [facility] URINALYSIS 2022-07-03 15:13:00 Ying Pacheco [facility] FREE T4 2022-07-03 15:10:00 Ying Pacheco [facility] THYROID STIMULATING HORMONE 2022-07-03 15:10:00 Ying Pacheco [facility] COMP. METABOLIC PANEL (02618) 2022-07-03 15:10:00 Ying Pacheco [facility] LIPID PANEL (52738)(TOTAL CHOLESTEROL, TRIGLYCERIDES, HDL) 2022-07-03 15:10:00 Ying Pacheco [facility] CBC WITH DIFF 2022-07-03 15:10:00 Ying Pacheco [facility] GLYCOSYLATED HEMOGLOBIN (A1C) 2022-07-03 15:10:00 Ying Pacheco [facility] ASSIGNMENT OF BENEFITS 2022-07-03 13:42:33 Doctor Unassigned, [place] [facility] REFERRAL- REQUEST/RESPONSE 2019-07-21 05:01:00 Doctor Unassigned, [place] [facility] Encounters Start Date/Time End Date/Time Encounter Type Admission Type Attending Clinicians Care Facility Care Department Encounter ID Source 2024-02-04 21:24:13 Emergency HFD HFD [id number] [facility] Depart ent 2023-09-30 08:55:00 Outpatient PRINCE MORRISON [id number] [facility] chio 2022-02-17 11:58:[address] [facility] [id number] [facility] 2021-06-14 08:42:26 Outpatient [facility] [id number] [facility] 2024-12-04 08:19:32 2024-12-04 08:19:32 Outpatient SFA SFA [id number] Familia Ahuja 2024-11-30 09:14:47 2024-11-30 09:14:47 Outpatient SFA SFA [id number] Familia Ahuja 2024-11-22 20:00:00 2024-11-22 20:22:52 Urgent Care R [facility] 1..840.114 350.1.13.10 4.2.7.2.[id number] [facility] 2024-11-17 09:25:16 2024-11-17 09:25:16 Outpatient SFA SFA [id number] Familia Ahuja 2024-10-27 14:27:37 2024-10-27 14:27:37 Outpatient SFA SFA [id number] Familia Ahuja 2024-10-24 12:33:10 2024-10-24 12:33:10 Outpatient SFA SFA [id number] Familia Ahuja 2024-10-07 10:40:00 2024-10-07 11:40:41 Urgent Care R ELSIE SIMPSON [facility] 1..840.114 350.1.13.10 4.2.7.2.[id number] [facility] 2024-09-25 14:41:37 2024-09-25 14:41:37 Outpatient SFA SFA [id number] Familia Mansfield Seymour 2024-09-11 08:26:04 2024-09-11 08:26:04 Outpatient SFA SFA [id number] Familia Ahuja 2024-09-11 00:00:00 2024-09-11 00:00:00 Outpatient Visit SFA [id number] Familia Ahuja 2024-09-07 14:10:38 2024-09-07 14:10:38 Outpatient SFA SFA [id number] Familia Mansfield Seymour 2024-08-27 14:11:53 2024-08-27 14:11:53 Outpatient SFA SFA [id number] Familia Ahuja 2024-08-13 16:40:16 2024-08-13 16:40:16 Outpatient SFA SFA [id number] Familia Ahuja 2024-07-16 10:11:30 2024-07-16 10:11:30 Outpatient SFA SFA [id number] Familia Mansfield Seymour 2024-07-10 12:16:43 2024-07-10 12:16:43 Outpatient SFA SFA [id number] Familia Mansfield Seymour 2024-07-03 20:55:00 2024-07-04 01:26:00 Emergency Emergency [facility] General Medicine [id number] [facility] 2024-06-29 15:02:39 2024-06-29 15:02:39 Outpatient SFA SFA [id number] Familia Mansfield Seymour 2024-06-18 08:01:48 2024-06-18 08:01:48 Outpatient SFA SFA [id number] Familia Mansfield [place] 2024-06-15 17:06:44 2024-06-15 17:06:44 Outpatient SFA SFA [id number] Familia Mansfield [place] 2024-06-10 13:21:16 2024-06-10 13:21:16 Outpatient SFA SFA [id number] Familia Mansfield Seymour 2024-06-10 00:00:00 2024-06-10 00:00:00 Outpatient Visit SFA [id number] Familia Ahuja 2024-06-01 17:33:24 2024-06-01 17:33:24 Outpatient SFA SFA [id number] Familia Ahuja 2024-05-22 12:36:53 2024-05-22 12:36:53 Outpatient SFA SFA [id number] Familia Ahuja 2024-05-18 10:25:59 2024-05-18 10:25:59 Outpatient SFA SFA [id number] Familia Ahuja 2024-05-12 09:49:23 2024-05-12 09:49:23 Outpatient SFA SFA [id number] Familia Ahuja 2024-04-23 14:25:11 2024-04-23 14:25:11 Outpatient SFA SFA [id number] Familia Ahuja 2024-04-13 08:33:30 2024-04-13 08:33:30 Outpatient SFA SFA [id number] Familia Ahuja 2024-04-08 10:27:33 2024-04-08 10:27:33 Outpatient SFA SFA [id number] Familia Mansfield Seymour 2024-04-08 00:00:00 2024-04-08 00:00:00 Outpatient Visit SFA [id number] Familia Ahuja 2024-03-26 13:56:31 2024-03-26 13:56:31 Outpatient SFA SFA [id number] Familia Ahuja 2024-03-20 07:58:40 2024-03-20 07:58:40 Outpatient SFA SFA [id number] Familia Ahuja 2024-02-27 10:23:57 2024-02-27 10:23:57 Outpatient SFA SFA [id number] Familia Ahuja 2024-02-16 08:09:42 2024-02-16 08:09:42 Outpatient SFA SFA [id number] Familia Mansfield Seymour 2024-02-04 21:05:00 2024-02-04 22:33:00 Emergency EM Suarez, Katan [facility] [id number] [facility] 2024-01-14 17:36:33 2024-01-14 17:36:33 Outpatient SFA SFA [id number] Familia Ahuja 2024-01-13 08:05:41 2024-01-13 08:05:41 Outpatient SFA [facility] [id number] Familia Ahuja 2024-01-03 09:33:41 2024-01-03 09:33:41 Outpatient SFA [facility] [id number] Familia Ahuja 2024-01-03 00:00:00 2024-01-03 00:00:00 Outpatient Visit SFA [id number] Familia Ahuja 2024-01-01 00:00:00 2024-01-01 17:17:13 Nurse Triage Maida Whiting Jenny L [facility] 1.2.840.114 350.1.13.10 4.2.7.2.[id number] [facility] 2023-12-29 11:01:31 2023-12-29 11:01:31 Outpatient SFA [facility] [id number] Familia Ahuja 2023-12-24 08:57:41 2023-12-24 08:57:41 Outpatient SFA [facility] [id number] Familia Ahuja 2023-11-25 00:00:00 2023-11-26 10:07:04 Telephone Elmer Maddox [facility] 1.2.840.114 350.1.13.10 4.2.7.2.[id number] [facility] 2023-11-25 19:40:00 2023-11-25 20:54:59 Outpatient R ELMER MADDOX SHAHNAZ [facility] [id number] [facility] 2023-11-25 19:40:00 2023-11-25 20:54:59 Urgent Care Elmer Maddox Unknown, Attending [facility] 1.2.840.114 350.1.13.10 4.2.7.2.[id number] [facility] 2023-11-24 17:38:46 2023-11-24 17:38:46 Outpatient SFA [facility] [id number] Familia Ahuja 2023-11-24 00:00:00 2023-11-24 00:00:00 Outpatient Visit [facility] [id number] Familia Ahuja 2023-10-15 11:41:16 2023-10-15 11:41:16 Outpatient SFA [facility] [id number] Familia Ahuja 2023-09-22 15:26:00 2023-09-23 16:35:00 Emergency E RUBA LEBRON [facility] [id number] [facility] 2023-09-20 14:20:45 2023-09-20 14:20:45 Outpatient [facility] [id number] Familia Ahuja 2023-07-06 10:30:00 2023-07-06 10:30:00 Outpatient YING CRUZ [facility] [id number] [facility] 2023-04-07 13:30:00 2023-04-07 13:30:00 Outpatient SUGEY CHAVES [facility] [id number] [facility] 2023-01-08 00:00:00 2023-01-08 00:00:00 Patient Outreach Jessie Reinoso [facility] 1.2.840.114 350.1.13.10 4.2.7.2.[id number] [facility] 2023-01-07 00:00:00 2023-01-07 00:00:00 Telephone Ying Pacheco [facility] 1.2.840.114 350.1.13.10 4.2.7.2.[id number] [facility] 2023-01-04 11:15:00 2023-01-04 11:19:37 Transcription Coordinator Visit 2, Adc Lab Ying Pache[facility] 1.2.840.114 350.1.13.10 4.2.7.2.[id number] [facility] 2023-01-04 10:00:00 2023-01-04 11:08:38 Office Visit Ying Pacheco [facility] 1.2.840.114 350.1.13.10 4.2.7.2.[id number] [facility] 2023-01-04 10:00:00 2023-01-04 11:08:38 Outpatient R YING PACHECO [facility] [id number] [facility] 2022-12-31 11:12:58 2022-12-31 11:12:58 Outpatient [facility] [id number] Familia Ahuja 2022-12-07 14:24:45 2022-12-07 14:24:45 Outpatient SFA [facility] [id number] Familia Ahuja 2022-12-04 13:30:00 2022-12-04 14:00:00 Office Visit Ying Pacheco [facility] 1.2.840.114 350.1.13.10 4.2.7.2.[id number] [facility] 2022-12-04 13:30:00 2022-12-04 13:30:00 Outpatient R YING PACHECO [facility] [id number] [facility] 2022-12-04 00:00:00 2022-12-04 00:00:00 Letter (Out) Ying Pacheco [facility] 1.2.840.114 350.1.13.10 4.2.7.2.[id number] [facility] 2022-11-17 09:30:00 2022-11-17 09:30:00 Outpatient R CARINE SAGASTUME [facility] [id number] [facility] 2022-09-25 20:31:00 2022-09-26 20:50:00 Emergency EM Maximus Dodson [facility] [id number] [facility] 2022-08-24 09:20:56 2022-08-24 23:59:00 Outpatient R DOROTHEA SAGASTUMED [facility] [id number] [facility] 2022-08-24 09:20:56 2022-08-24 23:59:00 Hospital Encounter Dorothea Sagastumed [facility] 1.0.114 350.1.13.10 4.2.7.2.[id number] [facility] 2022-08-20 13:36:44 2022-08-20 13:36:44 Outpatient SFA [facility] [id number] Familia Mansfield Seymour 2022-08-19 00:00:00 2022-08-19 00:00:00 Telephone Ying Pacheco [facility] 1.840.114 350.1.13.10 4.2.7.2.[id number] [facility] 2022-08-11 00:00:00 2022-08-11 00:00:00 Telephone Junior Ying [facility] 1.840.114 350.1.13.10 4.2.7.2.[id number] [facility] 2022-08-11 00:00:00 2022-08-11 00:00:00 Orders Only Doctor Unassigned, [place] [facility] 1.2840.114 350.1.13.10 4.2.7.2.[id number] [facility] 2022-07-23 14:22:37 2022-07-23 14:22:37 Outpatient SFA [facility] [id number] Familia Ahuja 2022-07-23 00:00:00 2022-07-23 00:00:00 Refill Maikel Sagastumemad Jeaneth [facility] 1.2.840.114 350.1.13.10 4.2.7.2.[id number] [facility] 2022-07-20 10:30:00 2022-07-20 11:00:00 Office Visit Dorothea Sagastumed Jeaneth [facility] 1.2.840.114 350.1.13.10 4.2.7.2.[id number] [facility] 2022-07-20 10:30:00 2022-07-20 10:30:00 Outpatient R DOROTHEA SAGASTUMED [facility] [id number] [facility] 2022-07-03 10:15:00 2022-07-03 10:30:00 Transcription Coordinator Visit 2, [facility] 1..840.114 350.1.13.10 4.2.7.2.[id number] [facility] 2022-07-03 08:30:00 2022-07-03 09:55:01 Outpatient R JACK PACHECOSSICA [facility] [id number] [facility] 2022-07-03 08:30:00 2022-07-03 09:55:01 Office Visit Junior [facility] 1.2.840.114 350.1.13.10 4.2.7.2.[id number] [facility] 2022-07-03 00:00:00 2022-07-03 00:00:00 Orders Only Doctor Unassigned, [place] [facility] 1.2840.114 350.1.13.10 4.2.7.2.[id number] [facility] 2021-12-12 15:42:00 2021-12-12 15:42:[address] [facility] [id number] [facility] 2020-02-29 13:30:00 2020-02-29 13:30:00 Outpatient AKBAR HINSON [facility] [id number] [facility] 2019-11-17 14:00:00 2019-11-17 14:00:00 Outpatient YESIKA HELLER [facility] [id number] [facility] 2019-11-14 10:10:00 2019-11-14 10:10:00 Outpatient SHADE YUAN [facility] [id number] [facility] 2019-09-06 13:00:00 2019-09-06 13:00:00 Outpatient SHADE YUAN [facility] [id number] [facility] 2019-09-06 00:00:00 2019-09-06 00:00:00 Telephone Shade Julien [facility] 1.2840.114 350.1.13.10 4.2.7.2.[id number] [facility] 2019-07-21 00:00:00 2019-07-21 00:00:00 Orders Only Doctor Unassigned, [place] [facility] 1.2840.114 350.1.13.10 4.2.7.2.[id number] [facility] 2019-06-26 13:20:00 2019-06-26 13:20:00 Outpatient MEHRAN PARIKH [facility] [id number] [facility] 2019-06-23 00:00:00 2019-06-23 00:00:00 Telephone Pcp, Patient Does Not Have A [facility] 1.2840.114 350.1.13.10 4.2.7.2.[id number] [facility] Results Test Description Test Time Test Comments Results Result Co mments Source [facility] [id number] 01:14:29* Test Item Value Reference Range Interpretation Comme nts POCT Molecular Strep (test c ode = 28945-9) Negative Negative Lab Interpretation (test cod e = 41305-8) Normal [facility]OL[facility] [id number] 00:00:00* Test Item Value Reference Range Interpretation Comme nts GLUCOSE (test code = 2345-7) 86 mg/dL UREA NITROGEN (BUN) (test code = 3094-0) 14 mg/dL CREATININE (test code = 2160-0) 0.76 mg/dL EGFR (test code = 96234-4) 115 mL/min/1.73m2 BUN/CREATININE RATIO (test code = 3097-3) SEE NOTE: (calc) SODIUM (test code = 2951-2) 140 mmol/L POTASSIUM (test code = 2823-3) 4.5 mmol/L CHLORIDE (test code = 2075-0) 105 mmol/L CARBON DIOXIDE (test code = 2027-9) 28 mmol/L CALCIUM (test code = 09151-8) 9.7 mg/dL PROTEIN, TOTAL (test code = 2885-2) 6.6 g/dL ALBUMIN (test code = 1751-7) 4.0 g/dL GLOBULIN (test code = 11532-8) 2.6 g/dL(calc) ALBUMIN/GLOBULIN RATIO (test code = 1759-0) 1.5 (calc) BILIRUBIN, TOTAL (test code = 1975-2) 0.3 mg/dL ALKALINE PHOSPHATASE (test code = 6768-6) 68 U/L AST (test code = 1920-8) 11 U/L ALT (test code = 1742-6) 12 U/L Familia Donal SeymourCBC (INCLUDES DIFF/PLT)2024-09-08 00:00:00* Test Item Value Reference Range Interpretation Comme nts WHITE BLOOD CELL COUNT (test code = 6690-2) 9.0 Thousand/uL RED BLOOD CELL COUNT (test code = 789-8) 4.51 Million/uL HEMOGLOBIN (test code = 718-7) 12.5 g/dL HEMATOCRIT (test code = 4544-3) 38.0 % MCV (test code = 787-2) 84.3 fL MCH (test code = 785-6) 27.7 pg MCHC (test code = 786-4) 32.9 g/dL RDW (test code = 788-0) 13.0 % PLATELET COUNT (test code = 777-3) 217 Thousand/uL MPV (test code = 776-5) 13.6 fL ABSOLUTE NEUTROPHILS (test code = 751-8) 6138 cells/uL ABSOLUTE BAND NEUTROPHILS (test code = 29594-8) DNR cells/uL ABSOLUTE METAMYELOCYTES (kalie t code = 18469-8) DNR cells/uL ABSOLUTE MYELOCYTES (test code = 47895-8) DNR cells/uL ABSOLUTE PROMYELOCYTES (test code = 71949-9) DNR cells/uL ABSOLUTE LYMPHOCYTES (test code = 731-0) 2277 cells/uL ABSOLUTE MONOCYTES (test cod e = 742-7) 450 cells/uL ABSOLUTE EOSINOPHILS (test code = 711-2) 108 cells/uL ABSOLUTE BASOPHILS (test cod e = 704-7) 27 cells/uL ABSOLUTE BLASTS (test code = 98020-6) DNR cells/uL ABSOLUTE NUCLEATED RBC (test code = 27402-2) DNR cells/uL NEUTROPHILS (test code = 770-8) 68.2 % BAND NEUTROPHILS (test code = 764-1) DNR % METAMYELOCYTES (test code = 740-1) DNR % MYELOCYTES (test code = 749-2) DNR % PROMYELOCYTES (test code = 783-1) DNR % LYMPHOCYTES (test code = 736-9) 25.3 % REACTIVE LYMPHOCYTES (test code = 17382-2) DNR % MONOCYTES (test code = 5905-5) 5.0 % EOSINOPHILS (test code = 713-8) 1.2 % BASOPHILS (test code = 706-2) 0.3 % BLASTS (test code = 709-6) DNR % NUCLEATED RBC (test code = 59511-2) DNR /100WBC COMMENT(S) (test code = 8251-1) DNR Familia [id number] 00:00:00* Test Item Value Reference Range Interpretation Comme nts TSH (test code = 3016-3) 8.44 mIU/L Familia AhujaLIPID [id number] 00:00:00* Test Item Value Reference Range Interpretation Comme nts CHOLESTEROL, TOTAL (test cod e = 2093-3) 222 mg/dL HDL CHOLESTEROL (test code = 2085-9) 54 mg/dL TRIGLYCERIDES (test code = 2571-8) 129 mg/dL LDL-CHOLESTEROL (test code = 92800-0) 143 mg/dL(calc) CHOL/HDLC RATIO (test code = 9830-1) 4.1 (calc) NON HDL CHOLESTEROL (test code = 11220-1) 168 mg/dL(calc) Familia AhujaHEMOGLOBIN [id number] 00:00:00* Test Item Value Reference Range Interpretation Comme emily HEMOGLOBIN A1c (test code = 4548-4) 5.5 % Familia AhujaTHYROID PANEL WITH [id number] 00:00:00* Test Item Value Reference Range Interpretation Comme nts T3 UPTAKE (test code = 3050-2) 27 % T4 (THYROXINE), TOTAL (test code = 3026-2) 3.9 mcg/dL FREE T4 INDEX (T7) (test cod e = 78787-9) 1.1 TSH (test code = 3016-3) 68.20 mIU/L Familia AhujaTOXOPLASMA AB, [id number] 00:52:09* Test Item Value Reference Range Interpretation Comme nts TOXOPLASMA AB, IgM (test code = 83477) 0.164 INDEX SEE BELOW INTERPRETATI ON UNITS RANGE ----- ----- NON-REACTIVE INDEX <0.800 EQUIVOCAL INDEX 0.800-0.999 REACTIVE INDEX >=1.000 UNLESS OTHERWISE INDICATED, ALL TESTING PERFORMED AT [facility] [address] [place] [id number] HIV/AIDS CARE NURSE: FAUSTO BAUMANN M.D. CLIA NUMBER [id number] [place]. [id number] TOXOPLASMA IgM [id number] 00:00:00* Test Item Value Reference Range Interpretation Comme nts TOXOPLASMA AB, IgM (test cod e = 33318) 0.164 INDEX Familia [place] AustinTOXOPLASMA IgM [id number] 00:00:00* Test Item Value Reference Range Interpretation Comme nts TOXOPLASMA AB, IgM (test cod e = 66535) 0.164 INDEX Familia AhujaTHYROID II PROFILE (TU,T4,FTI,TSH)[id number] 23:54:50* Test Item Value Reference Range Interpretation Comme nts T-UPTAKE (test code = 2817) 27.2 % 24.3-39.0 THYROX. BIND. CAPAC. (test code = 22410) 1.2 0.8-1.3 T4 (THYROXINE) (test code = 2819) 3.4 UG/DL 4.5-10.5 L CORRECTED T4 (FTI) (test cod e = 2820) 2.8 UG/DL 4.2-11.6 L TSH, THIRD GENERATION (test code = 2821) >100.000 UIU/ML 0.400-4.100 H TSH, THIRD [id number] 23:54:50* Test Item Value Reference Range Interpretation Comme nts TSH, THIRD GENERATION (test code = 2821) >100.000 UIU/ML 0.400-4.100 H COMPREHENSIVE METABOLIC [id number] 23:54:06* Test Item Value Reference Range Interpretation Comme nts GLUCOSE (test code = 2217) 87 MG/DL 70-99 BUN (test code = 2208) 12 MG/DL 6-20 CREATININE (test code = 2214) 0.75 MG/DL 0.50-1.10 eGFR (2020 CKD-EPI) (test code = 59975) 118 ML/MIN/1.73 >60 CALC BUN/CREAT (test code = 2235) 16 RATIO 6-28 SODIUM (test code = 2231) 137 MEQ/L 133-146 POTASSIUM (test code = 2228) 4.3 MEQ/L 3.5-5.4 CHLORIDE (test code = 2215) 101 MEQ/L 95-107 CARBON DIOXIDE (test code = 2206) 22 MEQ/L 19-31 CALCIUM (test code = 2209) 9.8 MG/DL 8.5-10.5 PROTEIN, TOTAL (test code = 222) 6.7 G/DL 6.1-8.3 ALBUMIN (test code = 2201) 4.1 G/DL 3.5-5.2 CALC GLOBULIN (test code = 2240) 2.6 G/DL 2.1-3.7 CALC A/G RATIO (test code = 2234) 1.6 RATIO 1.0-2.6 BILIRUBIN, TOTAL (test code = 7) 0.3 MG/DL <=1.2 ALKALINE PHOSPHATASE (test code = 2204) 73 U/L 41-120 AST (test code = 2218) 15 U/L 9-40 ALT (test code = 2219) 10 U/L 5-40 LIPID [id number] 23:54:06* Test Item Value Reference Range Interpretation Comme nts CHOLESTEROL (test code = 2210) 242 MG/DL <200 H TRIGLYCERIDES (test code = 2232) 101 MG/DL <150 HDL CHOLESTEROL (test code = 2220) 61 MG/DL >39 CALC LDL CHOL (test code = 2236) 160 MG/DL <100 H NOTE: CALCULATED LDL IS BASED ON MELISSA-GUZMAN METHOD WHICHINCLUDES ADJUSTABLE TRIGLYCERIDE:VLDL CHOLESTEROL RATIO.THIS FACTOR VARIES BY MEASURED TRIGLYCERIDE AND NON-HDLCHOLESTEROL CONCENTRATIONS WITH INCREASED CALCULATED LDL SEENIN HIGHER TRIGLYCERIDE OR LOWER NON-HDL SPECIMENS. FOR MOREINFORMATION, SEE CLIENT ANNOUNCEMENT AT [email or web address] RISK RATIO LDL/HDL (test code = 2238) 2.62 RATIO <3.22 HEMOGLOBIN [id number] 05:19:16* Test Item Value Reference Range Interpretation Comme nts HEMOGLOBIN A1c (test code = 67499) 5.3 % 4.2-5.6 UNLESS OTHERWISE INDICATED, ALL TESTING PERFORMED AT [facility] [address] [place] [address] HIV/AIDS CARE NURSE: FAUSTO BAUMANN M.D. CLIA NUMBER [id number] [place]. [id number] CBC W/AUTO DIFF WITH [id number] 03:45:46* Test Item Value Reference Range Interpretation [...] = 1065) 0.0 /100 WBC'S See_Comment [Automated [employer] ge] The system which generated this result [...] 0.00-0.10 ABS NUCLEATED RBCS (test code = 37369) 0.00 K/UL 0.00-0.11 CBC W/AUTO [id number] 00:00:00* Test Item Value Reference Range Interpretation [...] ABS NUCLEATED RBCS (test cod e = 07335) 0.00 K/UL Familia AhujaCOMPREHENSIVE METABOLIC [id number] 00:00:00* Test Item Value Reference Range Interpretation Comme nts GLUCOSE (test code = 2217) 87 MG/DL BUN (test code = 2208) 12 MG/DL CREATININE (test code = 2214) 0.75 MG/DL eGFR (2020 CKD-EPI) (test code = 66298) 118 ML/MIN/1.73 CALC BUN/CREAT (test code = [...] (test code = 2219) 10 U/L Familia AhujaLIPID [id number] 00:00:00* Test Item Value Reference Range Interpretation [...] % THYROX. BIND. CAPAC. (test code = 05311) 1.2 T4 (THYROXINE) (test code = 2819) 3.4 UG/DL CORRECTED T4 (FTI) (test cod e = 2820) 2.8 UG/DL TSH, THIRD GENERATION (test code = 2821) >100.000 UIU/ML Familia AhujaTSH, THIRD [id number] 00:00:00* Test Item Value Reference Range Interpretation Comme emily TSH, THIRD GENERATION (test code = 2821) >100.000 UIU/ML Familia AhujaHEMOGLOBIN A1c [ADDED]2024-04-09 00:00:00* Test Item Value Reference Range Interpretation Comme emily HEMOGLOBIN A1c (test code = 08284) 5.3 % Familia AhujaCBC W/AUTO [id number] 00:00:00* Test Item Value Reference Range Interpretation Comme emily WBC (test code = 1001) 6.2 K/UL [...] ABS NUCLEATED RBCS (test cod e = 81032) 0.00 K/UL Familia AhujaCOMPREHENSIVE METABOLIC [id number] 00:00:00* Test Item Value Reference Range Interpretation Comme nts GLUCOSE (test code = 2217) 87 MG/DL BUN (test code = 2208) 12 MG/DL CREATININE (test code = 2214) 0.75 MG/DL eGFR (2020 CKD-EPI) (test code = 00403) 118 ML/MIN/1.73 CALC BUN/CREAT (test code = [...] (test code = 2219) 10 U/L Familia AhujaLIPID [id number] 00:00:00* Test Item Value Reference Range Interpretation [...] % THYROX. BIND. CAPAC. (test code = 15324) 1.2 T4 (THYROXINE) (test code = 2819) 3.4 UG/DL CORRECTED T4 (FTI) (test cod e = 2820) 2.8 UG/DL TSH, THIRD GENERATION (test code = 2821) >100.000 UIU/ML Familia AhujaHEMOGLOBIN A1c [ADDED]2024-04-09 00:00:00* Test Item Value Reference Range Interpretation Comme emily HEMOGLOBIN A1c (test code = 80891) 5.3 % Familia AhujaTSH, THIRD [id number] 00:00:00* Test Item Value Reference Range Interpretation Comme emily TSH, THIRD GENERATION (test code = 2821) >100.000 UIU/ML Familia [id number] 22:30:00* Test Item Value Reference Range Interpretation Comme emily LIPASE (test code = LIP) 55 UNITS/L 23-300 N BASIC METABOLIC [id number] 22:30:00* Test Item Value Reference Range Interpretation [...] calculation forGFR is based on the CKD-EPI (202) calculation. This formulais race indifferent and is the recommended formula for GFRby the National Kidney Foundation for Adults.The GFR will not calculate if the sex is unknown or if thepatient's age is <18 years. CREATININE (test code = CREAT) 0.70 MG/DL 0.52-1.04 N CALCIUM (test code = CA) 9.9 MG/DL 8.4-10.2 N HEPATIC FUNCTION [id number] 22:30:00* Test Item Value Reference Range Interpretation Comme nts TOTAL PROTEIN (test code = PROT) 7.7 G/DL 6.3-8.2 N Ortho Clinical D iagnostic has made us aware of newinformation regarding the potential interference ofEltrombopag (a bone marrow stimulant used to treatthrombocytonmenia and aplastic anemia) with specific assayson the [place] d/[employer]/a [employer] 5600 of which Total Protein is one [...] ALKP) 74 UNITS/L 38-126 N HCG SERUM [id number] 22:28:00* Test Item Value Reference Range Interpretation Comme nts HCG SERUM QUAL (test code = HCGQL) NEGATIVE NEGATIVE URINALYSIS [id number] 22:27:00* Test Item Value Reference Range Interpretation [...] NONE SOURCE OF URINE: CLEAN CATCHUR HCG [id number] 22:27:00* Test Item Value Reference Range Interpretation Comme nts UR HCG QUAL (test code = HCGQLU) NEGATIVE NEGATIVE SOURCE OF URINE: CLEAN CATCHCBC W/O [id number] 22:17:00* Test Item Value Reference Range Interpretation [...] code = NRBC#) 0.00 K/mm3 0.0-0.1 N [id number] 19:54:00* Test Item Value Reference Range Interpretation Comme nts Coronavirus (COVID-19) TARAH (test code = Coronavirus (COVID-19) TARAH) Not Detected 8(09/23/23 2:54 PM) [id number] 22:47:00* Test Item Value Reference Range Interpretation [...] UDS Note) See Note 2*NA*(09/22/23 5:47 PM) [facility]2024-07-03 22:47:00* Test Item Value Reference Range Interpretation [...] UDS Note) See Note 2*NA*(09/22/23 5:47 PM) [place] [id number] 21:10:00* Test Item Value Reference Range Interpretation Comme nts hCG Tot (test code = hCG Tot) no gt [id number] 21:10:00* Test Item Value Reference Range Interpretation [...] 37.6-49.1 Platelet (test code = Platelet) 214 [id number] MPV (test code = MPV) 13.2 9.0-12.6 [...] t code = Segmented Neutrophils #) 6.07 2.03-7.32016 Lymphocytes # (test code = Lymphocytes #) 1.99 1.09-3.57425 Monocytes # (test code = Monocytes #) 0.40 0.27-0.78 103 Eosinophils # (test code = Eosinophils #) 0.11 0.02-0.26818 Basophils # (test code = Basophils #) 0.02 0.01-0.09 103 Immature Granulocytes (test code = Immature Granulocytes) 0.02 0.01-0.40727 [facility] [id number] 21:10:00* Test Item Value Reference Range Interpretation Comme nts Acetaminoph Lvl (test code = Acetaminoph Lvl) (09/22/23 4:10 PM) 10-20 Ethanol Lvl (test code = Ethanol Lvl) no gt Etoh (%) (test code = Etoh (%)) no gt Salicylate Lvl (test code = Salicylate Lvl) no gt <=30.0 [facility] CenterCHEM [id number] 21:10:00* Test Item Value Reference Range Interpretation [...] 0.7-1.6 eGFR (test code = eGFR) 99 [facility] [id number] 21:10:00* Test Item Value Reference Range Interpretation [...] (test code = hCG Tot) no gt [facility] [id number] 03:12:00* Test Item Value Reference Range Interpretation Comme nts UA COLOR (test code = COLU) YELLOW YELLOW UA APPEARANCE (test code = APPU) CLEAR CLEAR IS THE SAMPLE FROM ER OR L&D?Y IF THE ANSWER IS NO,PLEASE DOCUMENT TWO RN SIGNATURES HERE- by [id number] 09/26/22 0312 UA BILIRUBIN DIPSTICK (test code [...] FEW Urine Source? MidstreamDRUGS OF ABUSE SCREEN [id number] 03:12:00* Test Item Value Reference Range Interpretation Comme nts URN COCAINE (test code = COCAURN) NEGATIVE See_Comment [Automated [employer]] The system which generated this result transmitted reference range: <300 ng/mL. The reference range was not used to interpret this result as normal/abnormal. URN CANNABINOIDS (test code = CANNABURN) NEGATIVE See_Comment [Automated [employer]] The system which generated this result transmitted reference range: <50 ng/mL. The reference range was not used to interpret this result as normal/abnormal. URN AMPHETAMINE (test code = AMPHETURN) NEGATIVE See_Comment [Automated [employer]] The system which generated this result transmitted reference range: <1000 ng/mL. The reference range was not used to interpret this result as normal/abnormal. URN BARBITURATE (test code = BARBITURN) NEGATIVE See_Comment [Automated [employer]] The system which generated this result [...] (test code = OPIATURN) NEGATIVE See_Comment [Automated Qp[employer] ge] The system which generated this result [...] (test code = METHAURN) NEGATIVE See_Comment [Automated [employer]] The system which generated this result transmitted reference range: <300 ng/mL. The reference range was not used to interpret this result as normal/abnormal. Urine Source? [id number] 22:04:00* Test Item Value Reference Range Interpretation Comme nts SALICYLATE (test code = NUSRAT) < 3.0 mg/dL 2.8-20.0 N [id number] 22:04:00* Test Item Value Reference Range Interpretation [...] ANADDITIONAL CHARGE TO THE PATIENT. BASIC METABOLIC [id number] 22:04:00* Test Item Value Reference Range Interpretation [...] calculation forGFR is based on the CKD-EPI (202) calculation. This formulais race indifferent and is [...] CA) 9.4 mg/dL 8.5-10.1 N HEPATIC FUNCTION [id number] 22:04:00* Test Item Value Reference Range Interpretation [...] ALKP) 52 IUnit/L 37-107 N HCG SERUM [id number] 22:04:00* Test Item Value Reference Range Interpretation Comme nts HCG SERUM QUAL (test code = HCGQL) NEGATIVE NEGATIVE This HCGQL test is NOT applicable for MALE patients.Check with nurse about probable order error.If Tumor Marker Test needed, nurse should order test "HCGTU"(Test #[id number]) [id number] 22:04:00* Test Item Value Reference Range Interpretation Comme nts ACETAMINOPHEN (test code = ACET) < 0.2 mg/dL 1.0-3.0 L CAUTION: TO CONVERT FROM MG/DL TO MCG/ML MULTIPLY RESULT BY10 COVID 19 INHOUSE [id number] 21:56:00* Test Item Value Reference Range Interpretation Comme nts COVID 19 INHOUSE AG (test co de = [id number]) NEGATIVE NEGATIVE CBC W/O [id number] 21:38:00* Test Item Value Reference Range Interpretation [...] = MPV) 12.8 fL 6.7-11.0 H VALPROIC [id number] 00:00:00* Test Item Value Reference Range Interpretation Comme nts VALPROIC ACID (test code = 3025) 8.1 UG/ML Familia Barcenas (HEPATIC) FUNCTION [id number] 00:00:00* Test Item Value Reference Range Interpretation [...] = 2219) 18 U/L Familia AhujaCBC W/AUTO [id number] 00:00:00* Test Item Value Reference Range Interpretation [...] = 1015) 268 K/UL Familia AhujaCOMPREHENSIVE METABOLIC [id number] 00:00:00* Test Item Value Reference Range Interpretation Comme nts GLUCOSE (test code = 2217) 85 MG/DL BUN (test code = 2208) 15 MG/DL CREATININE (test code = 2214) 0.46 MG/DL eGFR AMER. (test code = 69889) (NOTE) ML/MIN/1.73 eGFR NON- AMER. (test code = 24576) NO CALC ML/MIN/1.73 CALC BUN/CREAT (test code = 2235) 33 RATIO SODIUM (test code = 2231) 142 MEQ/L POTASSIUM (test code = 2228) 4.3 MEQ/L CHLORIDE (test code = 2215) 99 MEQ/L CARBON DIOXIDE (test code = 2206) 25 MEQ/L CALCIUM (test code = 2209) 9.8 MG/DL PROTEIN, TOTAL (test code = 222) 7.0 G/DL ALBUMIN (test code = 2201) 4.5 G/DL CALC GLOBULIN (test code = 2240) 2.5 G/DL CALC A/G RATIO (test code = 2234) 1.8 RATIO BILIRUBIN, TOTAL (test code = 2207) 0.3 MG/DL ALKALINE PHOSPHATASE (test code = 2204) 257 U/L AST (test code = 2218) 29 U/L ALT (test code = 2219) 18 U/L Familia AhujaVALPROIC [id number] 00:00:00* Test Item Value Reference Range Interpretation Comme nts VALPROIC ACID (test code = 3025) 8.1 UG/ML Familia TurnerVER (HEPATIC) FUNCTION [id number] 00:00:00* Test Item Value Reference Range Interpretation Comme nts PROTEIN, TOTAL (test code = 2229) 7.0 G/DL ALBUMIN (test code = 2201) 4.5 G/DL BILIRUBIN, TOTAL (test code = 2207) 0.3 MG/DL BILIRUBIN, DIRECT (test code = 2021) 0.1 MG/DL ALKALINE PHOSPHATASE (test c ode = 2204) 257 U/L AST (test code = 2218) 29 U/L ALT (test code = 2219) 18 U/L Fmailia AhujaCBC W/AUTO [id number] 00:00:00* Test Item Value Reference Range Interpretation [...] 1015) 268 K/UL Familia Mansfield SeymourCOMPREHENSIVE METABOLIC [id number] 00:00:00* Test Item Value Reference Range Interpretation Comme nts GLUCOSE (test code = 2217) 85 MG/DL BUN (test code = 2208) 15 MG/DL CREATININE (test code = 2214) 0.46 MG/DL eGFR AMER. (test code = 73090) (NOTE) ML/MIN/1.73 eGFR NON- AMER. (test code = 09220) NO CALC ML/MIN/1.73 CALC BUN/CREAT (test code [...] = 2219) 18 U/L Familia Mansfield SeymourVALPROIC [id number] 00:00:00* Test Item Value Reference Range Interpretation Comme nts VALPROIC ACID (test code = 3025) 8.1 UG/ML Familia AhujaABHISHEK (HEPATIC) FUNCTION [id number] 00:00:00* Test Item Value Reference Range Interpretation [...] = 2219) 18 U/L Familia AhujaCBC W/AUTO [id number] 00:00:00* Test Item Value Reference Range Interpretation [...] 1015) 268 K/UL Familia Mansfield SeymourCOMPREHENSIVE METABOLIC [id number] 00:00:00* Test Item Value Reference Range Interpretation Comme nts GLUCOSE (test code = 2217) 85 MG/DL BUN (test code = 2208) 15 MG/DL CREATININE (test code = 2214) 0.46 MG/DL eGFR AMER. (test code = 04910) (NOTE) ML/MIN/1.73 eGFR NON- AMER. (test code = 82972) NO CALC ML/MIN/1.73 CALC BUN/CREAT (test code [...] code = 2219) 18 U/L Familia AhujaVALPROIC [id number] 00:00:00* Test Item Value Reference Range Interpretation Comme nts VALPROIC ACID (test code = 3025) 8.1 UG/ML Familia AhujaLIVER (HEPATIC) FUNCTION [id number] 00:00:00* Test Item Value Reference Range Interpretation [...] = 2219) 18 U/L Familia AhujaCBC W/AUTO [id number] 00:00:00* Test Item Value Reference Range Interpretation [...] = 1015) 268 K/UL Familia AhujaCOMPREHENSIVE METABOLIC [id number] 00:00:00* Test Item Value Reference Range Interpretation Comme nts GLUCOSE (test code = 2217) 85 MG/DL BUN (test code = 2208) 15 MG/DL CREATININE (test code = 2214) 0.46 MG/DL eGFR AMER. (test code = 98100) (NOTE) ML/MIN/1.73 eGFR NON- AMER. (test code = 04651) NO CALC ML/MIN/1.73 CALC BUN/CREAT (test code [...] code = 2219) 18 U/L Familia AhujaVALPROIC [id number] 00:00:00* Test Item Value Reference Range Interpretation Comme nts VALPROIC ACID (test code = 3025) 8.1 UG/ML Familia AhujaLIVER (HEPATIC) FUNCTION [id number] 00:00:00* Test Item Value Reference Range Interpretation [...] = 2219) 18 U/L Familia AhujaCBC W/AUTO [id number] 00:00:00* Test Item Value Reference Range Interpretation [...] 1015) 268 K/UL Familia Mansfield SeymourCOMPREHENSIVE METABOLIC [id number] 00:00:00* Test Item Value Reference Range Interpretation Comme nts GLUCOSE (test code = 2217) 85 MG/DL BUN (test code = 2208) 15 MG/DL CREATININE (test code = 2214) 0.46 MG/DL eGFR AMER. (test code = 83726) (NOTE) ML/MIN/1.73 eGFR NON- AMER. (test code = 76749) NO CALC ML/MIN/1.73 CALC BUN/CREAT (test code [...] Ahuja Notes Date/Time Note Provider Source Familia Ahuja [facility]2025-03-22 00:00:00 Familia Ahuja [facility]2025-01-18 00:00:00 Familia Ahuja [facility]2024-11-15 22:28:00 [facility] ([facility] EMERGENCY PROVIDER REPORT REPORT#:[id number] REPORT STATUS: Signed DATE:02/04/24 TIME: 2227 PATIENT: KAMLESH GALINDO UNIT #: [id number] ROOM/BED: : 04 AGE: 18 SEX: F PCP PHYS: No Primary or Family Physician SERVICE AUTHOR: Raymond Suarez DO LOCATION: [facility] REP SRV REP SRV TM: 2227 * ALL edits or amendments must be [...] # (Auto) (1.0 - 3.8 K/mm3) 2.18 [place] # (Auto) (0.1 - 0.8 K/mm3) 0.37 Eos # (Auto) (0.0 - 0.2 K/mm3) 0.11 Baso # (Auto) (0.0 - 0.2 K/mm3) 0.03 Nucleated RBCs # (Man) (0.0 - 0.1 K/mm3) 0.00 Urines Urine Color (YELLOW) Light-Yellow Urine Appearance (CLEAR) Clear Urine pH (5.0 - 9.0) 7.0 Ur Specific [place] (1.003 - 1.030) 1.029 Urine Protein (NEGATIVE [...] )( Discharged to Home Yes )( Time 2230 )( Date 02/04/24 Discharge/Care Plan Counseled Regarding Diagnosis, Prescriptions, Need for follow-up (Auto) Prescriptions Current Visit Scripts FAMOTIDINE (PEPCID) 40 MG PO BEDTIME FAMOTIDINE (PEPCID) 40 MG PO BEDTIME #30 TABS Patient Instructions ED Abdominal Pain Adult Departure Forms [facility] LIST at [address] [place] [address] #:[phone] END OF [id number] 00:00:00 Familia Bee [facility]2024-10-12 16:56:00 Regarding: busted inner corner of lip x 2 days in pain ----- Message from Rima Zaldivar sent at 01/01/2024 4:54 PM CDT ----- Kamlesh Galindo is a 18 year old female [place], pt aunt is calling stating the pt busted the inside corner of their lip about 2 days ago and it doesn't look infected but the pt is in pain and unsure if they should be seen or not, UC declined. [facility] Maida Whiting Critical access [id number] 16:56:00 Grandmother of patient calling, patient not with her. Will call back when she is with patient. Maida Whiting BSN, RN Reason for Disposition Second attempt to contact caller AND no contact made. Phone number verified. Protocols used: No Contact or Duplicate Contact Szve-LYBIP-QM [place] 18173-09-06 10:06:44 Rx resent to pharmacy as requested. Rosy Fleming RN 11/26/2023 10:06 AM [place] 009954-09-05 20:52:48 Kamlesh Galindo is a 18 year [...] that clinic needed to resend. Thank you. [facility] #[id number] - [place], [place] - [facility] [address] Sherrie MccrayFairfield Medical [id number] 00:00:00 Familia Bee [facility]2019-10-17 11:45:00 [facility] ([facility]) EMERGENCY PROVIDER REPORT REPORT#:[id number] REPORT STATUS: Signed DATE:01/05/19 TIME: 114 PATIENT: KAMLESH GALINDO UNIT #: [id number] ROOM: BED: AGE: 13 SEX: F PCP [...] Text ROS Notes 13 y/o WF [facility] presents with a wound where a friend [...] Documented: Result Date Time Pulse Ox 98 01/053 B/P 114/74 01/05 1123 B/P Mean 87.3 01/05 1123 Temp 36.7 01/05 1123 Pulse 71 01/05 1123 Resp 20 01/05 1123 Last Documented: Result Date Time Pulse Ox 98 01/05 1123 B/P 114/74 01/053 B/P Mean 87.3 01/05 1123 Temp 36.7 [...] Documented: Result Date Time Pulse Ox 98 01/053 B/P 114/74 01/05 1123 B/P Mean 87.3 [...] worsens. Patient guardian understood. at 1156 RPT #:[id number] END OF REPORTHCANW
--- NOTE | 2024-12-09 19:14 | ER ---
Nurse's Notes [facility] Name: Tere Galindo Age: 19 yrs Sex: Female : 2005 Arrival Date: 12/09/2024 Time: 18:25 Bed 18 Private MD: Diagnosis: Laceration without foreign body of right middle finger without damage to nail;Scalp Laceration/ Open wound of scalp Presentation: 12/09 18:31 Chief complaint: EMS states: patient was arguing with her grandma, she got upset \T\ hit rg5 her head with the tea cup and broke resulting to laceration on her finger \T\ a small cut on her forehead hairline area. Coronavirus screen: Client denies travel out of the [place] in the last 14 days. Ebola Screen: Patient negative for fever greater than or equal to 101.5 degrees Fahrenheit, and additional compatible Ebola Virus Disease symptoms Patient denies exposure to infectious person. Patient denies travel to an Ebola-affected area in the 21 days before illness onset. Initial Sepsis Screen: Does the patient meet any 2 criteria? No. Patient's initial sepsis screen is negative. Does the patient have a suspected source of infection? No. Patient's initial sepsis screen is negative. Risk Assessment: Do you want to hurt yourself or someone else? Patient reports no desire to harm self or others. Onset of symptoms was December 09, 2024. Care prior to arrival: Glucose check: 120. 18:31 Method Of Arrival: EMS: [place] [id number] 18:31 Acuity: DWAYNE 4 rg5 18:31 Mechanism of Injury: Laceration sustained at home. rg5 Triage Assessment: 18:58 Headache History: Denies prior headaches. General: Appears in no apparent distress. rg5 comfortable, Behavior is calm, cooperative, appropriate for age. Pain: Complains of pain in forehead Pain does not radiate. Pain currently is 2 out of 10 on a pain scale. Pain began gradually, 1 hour ago. Also complains of no other associated symptoms. Neuro: Level of Consciousness is awake, alert, obeys commands, Oriented to person, place, time. Cardiovascular: Patient's skin is warm and dry. Respiratory: Airway is patent Trachea midline Respiratory effort is even, unlabored. GI: Abdomen is round obese. : No signs and/or symptoms were reported regarding the genitourinary system. Derm: Skin is intact, Skin is dry, Skin is normal. Musculoskeletal: Circulation, motion, and sensation intact. Range of motion: intact in all extremities. Injury Description: Puncture sustained to palmar aspect of middle phalanx of right middle finger is superficial. HUMAN RESOURCES INTERN: 18:58 LMP 12/09/2024, unknown rg5 Historical: - Allergies: 18:58 No Known Allergies; rg5 - Home Meds: 18:58 aripiprazole 10 mg Oral tablet 1 tab daily [Active]; buspirone 10 mg Oral capsule 1 cap rg5 2 times per day [Active]; levothyroxine 100 mcg tablet 1 tab daily [Active]; oxcarbazepine 300 mg Oral Tablet 1 tab twice a day [Active]; sertraline 100 mg Oral tablet 1 tab daily [Active]; trazodone 50 mg Oral tablet 1 tab every day at bedtime [Active]; - PSHx: 18:58 abdominal; rg5 - Immunization history:: Adult Immunizations not up to date. - Infectious Disease History:: Denies. - Social history:: Smoking status: Patient denies any tobacco usage or history of. Screenin:01 [facility] ED Fall Risk Assessment (Adult) History of falling in the last 3 months, rg5 including since admission No falls in past 3 months (0 pts) Confusion or Disorientation No (0 pts) Intoxicated or Sedated No (0 pts) Impaired Gait No (0 pts) Mobility Assist Device Used No (0 pt) Altered Elimination No (0 pt) Score/Fall Risk Level 0 - 2 = Low Risk Oriented to surroundings, Maintained a safe environment. Abuse screen: Denies threats or abuse. Nutritional screening: No deficits noted. Tuberculosis screening: No symptoms or risk factors identified. Assessment: 19:01 Pain: Complains of pain in forehead Quality of pain is described as aching. Neuro: rg5 Level of Consciousness is awake, alert, obeys commands. Vital Signs: 18:58 BP 116 / 61; Pulse 84; Resp 18; Temp 98; Pulse Ox 99% on R/A; Weight 113.4 kg; Height 5 rg5 ft. 4 in. ; Pain 2/10; 18:58 Body Mass Index 42.91 (113.40 kg, 162.56 cm) rg5 18:58 Pain Scale: Adult rg5 ED Course: 18:31 Patient arrived in ED. rg5 18:40 Lopez Kaufman PA-C is [facility]. sb4 18:43 Reymundo Gonzalez MD is Attending Physician. jc 18:52 Alexandru Ibarra, RN is Primary Nurse. rg5 18:57 Triage completed. rg5 18:58 Arm band placed on. rg5 19:01 Patient has correct armband on for positive identification. Door closed. Noise rg5 minimized. Warm blanket given. 19:01 No provider procedures requiring assistance completed. rg5 19:25 Provided Education on: post er care. rg5 19:25 Patient did not have IV access during this emergency room visit. rg5 Administered Medications: 19:19 Drug: Boostrix Tdap IM 0.5 ml IM once; as a single dose, if needed Route: IM; Site: rg5 right deltoid; 19:26 Follow up: Response: No adverse reaction rg5 Medication: 19:01 VIS not applicable for this client. rg5 Outcome: 19:13 Discharge ordered by . cp 19:25 Discharged to home ambulatory, rg5 19:25 Condition: stable 19:25 Discharge instructions given to patient, rg5 19:27 Patient left the ED. rg5 Signatures: Lopez Kaufman PA-C PA-C cp Brown, Sophia, PA-C PA-C sb4 Gallardo, Rommel, RN RN rg5
--- NOTE | 2024-12-09 19:14 | EDPHYS ---
Physician Documentation [facility] Name: Tere Galindo Age: 19 yrs Sex: Female : 2005 Arrival Date: 12/09/2024 Time: 18:25 Bed 18 Private MD: ED Physician Reymundo Gonzalez HPI: 12/09 18:45 This 19 yrs old Female presents to ER via Unassigned with complaints of cp Laceration. 18:45 Patient is a 19-year-old female who presents to the emergency department via EMS after cp being involved in a verbal argument with her grandmother concerning the cleanliness of her room. Patient reports she became upset and while holding a glass cup in her hand, broke it and caused a laceration to her scalp and to her right hand. Patient reports these injuries were intentional but denies any suicidal and/or homicidal ideations. SEC[employer] TE[employer]ER: 18:58 LMP 12/09/2024, unknown rg5 Historical: - Allergies: 18:58 No Known Allergies; rg5 - Home Meds: 18:58 aripiprazole 10 mg Oral tablet 1 tab daily [Active]; buspirone 10 mg Oral capsule 1 cap rg5 2 times per day [Active]; levothyroxine 100 mcg tablet 1 tab daily [Active]; oxcarbazepine 300 mg Oral Tablet 1 tab twice a day [Active]; sertraline 100 mg Oral tablet 1 tab daily [Active]; trazodone 50 mg Oral tablet 1 tab every day at bedtime [Active]; - PSHx: 18:58 abdominal; rg5 - Immunization history:: Adult Immunizations not up to date. - Infectious Disease History:: Denies. - Social history:: Smoking status: Patient denies any tobacco usage or history of. ROS: 18:50 Constitutional: Negative for fever, poor PO intake, cp 18:50 Eyes: Negative for injury, pain, redness, and discharge, cp 18:50 Cardiovascular: Negative for chest pain, palpitations, 18:50 Respiratory: Negative for cough, shortness of breath, wheezing, 18:50 Abdomen/GI: Negative for abdominal pain, vomiting, diarrhea, constipation, 18:50 Skin: Positive for laceration(s), of the dorsal aspect of middle phalanx of right middle finger and front of scalp, 18:50 Neuro: Negative for altered mental status, 18:50 Psych: Negative for auditory hallucinations, visual hallucinations, homicidal ideation, suicide gesture, suicidal ideation, 18:50 All other systems are negative, Exam: 18:55 Constitutional: The patient appears in no acute distress, alert, awake, non-toxic, well cp developed, well nourished, obese, 18:55 Head/face: Noted is a laceration(s), that is superficial, of the anterior scalp and cp hairline, 18:55 Eyes: Periorbital structures: appear normal, Pupils: equal, round, and reactive to light and accomodation, Extraocular movements: intact throughout, Conjunctiva: normal, no exudate, no injection, Sclera: no appreciated abnormality, Lids and lashes: appear normal, bilaterally, 18:55 ENT: External ear(s): are unremarkable, Nose: is normal, Mouth: Lips: moist, Oral mucosa: moist, Posterior pharynx: Airway: no evidence of obstruction, patent, 18:55 Neck: ROM/movement: is normal, is supple, without pain, no range of motions limitations, 18:55 Chest/axilla: Inspection: normal, 18:55 Cardiovascular: Rate: normal, 18:55 Respiratory: the patient does not display signs of respiratory distress, Respirations: normal, no use of accessory muscles, no retractions, labored breathing, is not present, Breath sounds: are clear throughout, no decreased breath sounds, 18:55 Abdomen/GI: Inspection: abdomen appears normal, Palpation: abdomen is soft and non-tender, in all quadrants, 18:55 Back: pain, is absent, 18:55 Musculoskeletal/extremity: Extremities: noted in the dorsal aspect of middle phalanx of right middle finger: Transverse laceration with minimal active bleeding noted. Patient has full active range of motion of the middle finger and no signs of tendon injury. Laceration is through the dermal layer. Right middle finger is neurovascularly intact, 18:55 Neuro: Orientation: to person, place \T\ time. Mentation: is normal, Motor: moves all fours, strength is normal, Sensation: is normal, 18:55 Psych: Behavior/mood is cooperative, Affect is calm, Judgement / Insight is normal. Delusions/hallucinations are not present. Vital Signs: 18:58 BP 116 / 61; Pulse 84; Resp 18; Temp 98; Pulse Ox 99% on R/A; Weight 113.4 kg; Height 5 rg5 ft. 4 in. ; Pain 2/10; 18:58 Body Mass Index 42.91 (113.40 kg, 162.56 cm) rg5 18:58 Pain Scale: Adult rg5 MDM: 18:43 Medical Screening Exam initiated cp 19:12 Data reviewed: vital signs, nurses notes, and as a result, I will discharge patient. cp 19:12 Differential diagnosis: superficial laceration, tendon injury, vascular injury, cp suicidal ideation. Counseling: I had a detailed discussion with the patient and/or guardian regarding the historical points, exam findings, and any diagnostic results supporting the discharge/admit diagnosis, to return to the emergency department if symptoms worsen or persist or if there are any questions or concerns that arise at home. Refusal of service: The patient/guardian displays adequate decision making capability and despite a detailed discussion of alternatives, benefits, risks, and consequences refuses: Suturing of right middle finger laceration. ED course: Vital signs stable. Upon questioning patient expresses that she does hurt herself when she gets upset but does not have any suicidal or any homicidal ideations at this time. Will discharge. Patient reports she does have [facility] which she can stay with. 12/09 18:51 Order name: Wound Care; Complete Time: 19:02 cp Administered Medications: 19:19 Drug: Boostrix Tdap IM 0.5 ml IM once; as a single dose, if needed Route: IM; Site: rg5 right deltoid; 19:26 Follow up: Response: No adverse reaction rg5 Disposition: 12/10 07:29 Co-signature as Attending Physician, Reymundo Gonzalez MD I reviewed the patient's care rn provided by the Advanced Practice Provider and agree with the diagnosis and treatment plan. Disposition Summary: 12/09/24 19:13 Discharge Ordered Notes: Location: Home cp Problem: new cp Symptoms: have improved cp Condition: Stable cp Diagnosis - Laceration without foreign body of right middle finger without damage to nail cp - Scalp Laceration/ Open wound of scalp cp Followup: cp - With: Private Physician - When: 2 - 3 days - Reason: Worsening of condition Discharge Instructions: - Discharge Summary Sheet cp - Nonsutured Laceration Care cp - Wound Care, Adult cp Forms: - Medication Reconciliation Form cp - Antibiotic Education cp - Prescription Opioid Use cp - Patient Portal Instructions cp - Leadership Thank You Letter cp Prescriptions: - Cephalexin 500 mg Oral Capsule - take 1 capsule ORAL route every 8 hours for 10 days; 30 capsule; Refills: 0, cp Product Selection Permitted Signatures: Reymundo Gonzalez MD MD rn Lopez Kaufman PA-C PA-C cp Gallardo, Rommel, RN RN rg5
[2024-12-09] MEDS ORDERED: TDAP (DIPHTH,PERTUSS(ACELL),TET VAC) 0.5 ML VIAL IMVAC ONE (19:16)
[2024-12-09 19:31] VITALS: BP 116/61; TEMP 98; O2SAT 99
== END 2024-12-09 19:27 | disposition home or self-care (01) ==
LOC: ER 18:25
DX: S01.01XA Laceration without foreign body of scalp, initial encounter (principal); S61.212A Laceration without foreign body of right middle finger without damage to nail, initial encounter; W25.XXXA Contact with sharp glass, initial encounter; Y92.009 Unspecified place in unspecified non-institutional (private) residence as the place of occurrence of the external cause; Z23 Encounter for immunization
CPT/HCPCS: 90715; 96372; 99284

== ENCOUNTER 2024-12-09 20:18 | Emergency (ER) | payer OTHER ==
--- OUTSIDE RECORDS SUMMARY | 2024-12-09 20:25 | XMS REPORT | Continuity of Care Document ---
Author Name Unknown Address [address] [facility] [address] [place] [address] [facility] Address [address] [facility] [place] [address] Care Team Providers Care License Clerk Name Role Phone Tamika Her Primary Care Physician [phone] RAMONA RUBIN Attending Clinician Unavailable ELSIE SIMPSON Attending Clinician Unavailable CHANTALE HURD Attending Clinician Unavailable Raymond Suarez Attending Clinician Unavailable Johanne MORA, Maida Thomas Attending Clinician UnavailElmer Doyle NP Attending Clinician ELMER MADDOX Attending Clinician Unavailable ELMER MADDOX Attending Clinician Unavailable Unknown, Attending Attending Clinician Unavailab RUBA Park Attending Clinician UnavailYING Rosales Attending Clinician Unavailable SUGEY LOJA Attending Clinician Unavailable Jessie Reinoso LCSW Attending Clinician [phone] Ying Norris Attending Clinician [phone], [facility] Attending Clinician Unavailable CARINE SAGASTUME Attending Clinician UnavailMaximus Reese Attending Clinician Unavailable Carine Sagastume MD Attending Clinician [phone] Doctor Unassigned, Mobile Attending Clinician U AKBAR Pina Attending Clinician Unavailable YESIKA HANDY Attending Clinician Unavailable SHADE JULIEN Attending Clinician Unavailable Shade Julien MD Attending Clinician [phone] MEHRAN BENNETT Attending Clinician Unavaila [facility] Pcp, Patient Does Not Have A Attending Clinician Physician, No Primary or Family Admitting Clinic morro Unavailable CARINE SAGASTUME Admitting Clinician Unavaildavid valdivia Payers Payer Name Policy Type Policy Number Effective Date Expirati on Date Source MEDICAID CI [id number] [facility] D [id number] [place] [id number] 2024 00:00:00 [place] Medicaid [id number] 2024 00:00:00 [place] PLAN [id number] 2023 00:00:00 [facility] [id number] 2022 00:00:00 Problems Condition Name Condition Details [...] s DA Active U 2019-03 00:00: 00 [facility] No Known Allergie s DA Active U 2019-1 0-17 00:00: 00 [facility] NO KNOWN ALLERGIE S Drug Class Active [facility] acute hospital Social History Social Habit Start Date Stop Date Quantity Comments Source Gender identity [facility] Sexual orientation [facility] ASSERTION Not General acute hospital Alcoholic beverage intake 2024-11-22 00:00:00 2024-11-22 00:00:00 Ex-drinker (finding) [facility] Alcohol intake 2023-01-04 00:00:00 2023-01-04 00:00:00 Ex-drinker (finding) [facility] Exposure to SARS-CoV-2 (event) 2022-07-10 00:00:00 2022-07-20 10:33:00 Not sure [facility] History of Social function 2022-07-03 00:00:00 2022-07-03 00:00:00 [facility] Tobacco use and exposure 2022-07-03 00:00:00 2022-07-03 00:00:00 Smokeless tobacco non-user [facility] Sex assigned at 2004 00:00:00 2005 00:00:00 [facility] Smoking Status Start Date Stop Date Source Social History Lauren mcgee Never smoked tobacco [facility] acute hospital Medications Ordered Medication Name Filled Medication Name Start Date Stop Date Current Medication? Ordering Clinician Indication Dosage Frequency Signature (SIG) Comments Components Source OXcarbazepi ne 300 mg Tb24 11-22 20:14: 07 Yes 300mg Take 300 mg by mouth in the morning and 300 mg in the evening. Take with meals. [facility] hospital busPIRone 10 mg Cap 11-22 20:12: 46 Yes 10mg Take 10 mg by mouth in the morning and 10 mg in the evening. Take with meals. [facility] levothyroxi ne 100 mcg tablet 11-22 20:11: 55 Yes 100ug Take 1 tablet by mouth every morning. [facility] hospital ARIPiprazol e 20 mg tbss 11-22 20:10: 25 Yes 20mg Take 20 mg by mouth in the morning. [facility] hospital benzonatate 100 mg capsule 11-22 00:00: 00 Yes [id number] 100mg Take 1 capsule by mouth every 8 hours as needed for Cough. [facility] acute hospital cetirizine 10 mg tablet 11-22 00:00: 00 Yes [id number] 10mg Take 1 tablet by mouth in the morning. [facility] fluticasone propionate 50 mcg/actuati on nasal spray 11-22 00:00: 00 Yes [id number] 2{spray } Use 2 sprays in each nostril in the morning. [facility] acute hospital cefTRIAXone (ROCEPHIN) injection 1,000 mg 10-07 16:34: 00 10-07 16:56 :00 No [id number] 1000mg 1,000 mg, Intramuscu lar, ONCE, 1 dose, On 10/07/24 at 1145, Routine, Reason for Anti-Infec tive: Documented Infection, Documented Infection Site: Skin / Soft Tissue, Duration of therapy: Once (ED) [facility] hospital mupirocin 2 % ointment 10-07 00:00: 00 10-18 04:59 :00 Yes [id number] Apply to area(s) 3 times daily for 10 days. [facility] acute hospital sulfamethox azole-trime thoprim (BACTRIM DS) 800-160 mg per tablet 10-07 00:00: 00 10-15 04:59 :00 Yes [id number] 1{tbl} Take 1 tablet by mouth in the morning and 1 tablet in the evening. Do all this for 7 days. [facility] hospital sertraline 100 mg tablet 09-11 00:00: 00 [...] tablet 2023-03 00:00: 00 Yes 1mg Familia hAuja Abilify 15 mg tablet 2023-03 00:00: 00 Yes 1mg Familia Ahuja buspirone 5 mg tablet 2023-03- 00:00: 00 Yes 1mg Familia Ahuja sulfamethox azole-trime thoprim (BACTRIM DS) 800-160 mg per tablet - 00:00: 00 11-22 00:00 :00 No [id number] 1{tbl} Take 1 tablet by mouth in the morning and 1 tablet in the evening. [facility] acute hospital ascorbic acid (VITAMIN C ORAL) 11-24 19:58: 18 11-22 00:00 :00 No .6mg Take by mouth. [facility] acute hospital haloperidoL 10 mg tablet 11-24 19:58: 18 11-22 00:00 :00 No 10mg Take 1 tablet by mouth. [facility] acute hospital hydrOXYzine 50 mg capsule 11-24 19:58: 18 11-22 00:00 :00 No 50mg Take 1 capsule by mouth 3 (three) times daily as needed for Itching. [facility] acute hospital Zinc 50 mg Tab 11-24 19:58: 18 11-22 00:00 :00 No Take by mouth. [facility] acute hospital OLANZapine 10 mg tablet 11-24:58: 18 11-22 00:00 :00 No 10mg Take 1 tablet by mouth in the morning. [facility] acute hospital sulfamethox azole-trime thoprim (BACTRIM DS) 800-160 mg per tablet 11-24 00:00: 00 11-25 00:00 :00 No [id number] 1{tbl} Take 1 tablet by mouth in the morning and 1 tablet in the evening. Do all this for 7 days. [facility] acute hospital mupirocin 2 % topical ointment 11-23 00:00: [...] Take 1 tablet by mouth at bedtime. [facility] hospital hydroxyzine HCl 25 mg tablet 10-15 00:00: [...] 1 tablet by mouth in the morning. [facility] acute hospital OLANZapine 20 mg tablet 2022-03 10:53: 32 01-04 00:00 :00 No 20mg Take 1 tablet by mouth at bedtime. [facility] hospital metFORMIN 1,000 mg 24 hr tablet 2022-03 10:36: 20 01-04 00:00 :00 No 1000mg Take 1 tablet by mouth in the morning and 1 tablet in the evening. Take with meals. [facility] hospital hydrOXYzine 50 mg capsule 2022-03 10:36: 19 Yes 50mg Take 1 capsule by mouth 3 (three) times daily as needed for Itching. [facility] hospital OLANZapine 10 mg tablet 2022-0316 10:36: 17 01-04 00:00 :00 No 10mg Take 1 tablet by mouth in the morning. [facility] acute hospital polyethylen e glycol 3350 (MIRALAX) 17 gram/dose powder 2022-03 10:35: 58 01-04 00:00 :00 No 17g Take 17 g by mouth in the morning. [facility] hospital prazosin HCl (PRAZOSIN ORAL) 2022-03 10:35: 55 01-04 00:00 :00 No 8mg Take 8 mg by mouth in the morning. [facility] traZODone 50 mg tablet 2022-03 10:35: 49 01-04 00:00 :00 No 50mg Take 1 tablet by mouth at bedtime. [facility] acute hospital traZODone 100 mg tablet 2022-03 10:35: 45 01-04 00:00 :00 No 100mg Take 1 tablet by mouth at bedtime. [facility] acute hospital divalproex ER 500 mg 24 hr tablet 2022-03 10:35: 11 01-04 00:00 :00 No 1000mg Take 2 tablets by mouth every 24 (twenty-fo ur) hours. [facility] TAKE 1 TABLET BY MOUTH EVERYDAY AT [...] 07-23 00:00: 00 11-22 00:00 :00 No [id number] 75ug Take 1 tablet by mouth every morning. [facility] acute hospital LEVOTHYROXI N 75MCG 07-23 00:00: 00 11-23 00:00 :00 No Familia Ahuja BUPROP 24 XL 300MG 07-23 00:00: 00 11-23 00:00 :00 No Familia Ahuja buPROPion XL (WELLBUTRIN XL) 300 mg 24 hr tablet 07-23 00:00: 00 01-04 00:00 :00 No [id number] 300mg Take 1 tablet by mouth in the morning. [facility] acute hospital buPROPion XL (WELLBUTRIN XL) 150 mg 24 hr tablet 07-23 00:00: 00 07-23 00:00 :00 No [id number] 150mg Take 1 tablet by mouth in the morning and 1 tablet in the evening. [facility] hospital traZODone 50 mg tablet 07-20 10:40: 37 Yes 50mg Take 1 tablet by mouth at bedtime. [facility] traZODone 100 mg tablet 07-20 10:39: 45 Yes 100mg Take 1 tablet by mouth at bedtime. [facility] hospital hydrOXYzine 50 mg capsule 07-20 10:39: 45 Yes 50mg Take 1 capsule by mouth 3 (three) times daily as needed for Itching. [facility] acute hospital OLANZapine 20 mg tablet 07-20 10:37: 48 Yes 20mg Take 1 tablet by mouth at bedtime. [facility] hospital OLANZapine 10 mg tablet 07-20 10:37: 48 Yes 10mg Take 1 tablet by mouth in the morning. [facility] hospital LYBALVI 20-10MG 07-20 00:00: 00 11-23 00:00 [...] tablet in the evening. Take with meals. [facility] hospital divalproex ER 500 mg 24 hr tablet 07-03 09:37: 07 Yes 1000mg Take 2 tablets by mouth every 24 (twenty-fo ur) hours. [facility] acute hospital prazosin HCl (PRAZOSIN ORAL) 07-03 09:17: 01 Yes 8mg Take 8 mg by mouth in the morning. [facility] acute hospital OLANZapine (ZYPREXA) 20 mg tablet 07-03 09:17: 01 Yes 20mg Take 1 tablet by mouth at bedtime. [facility] acute hospital OLANZapine (ZYPREXA) 10 mg tablet 07-03 09:17: 01 Yes 10mg Take 1 tablet by mouth in the morning. [facility] acute hospital desmopressi n acetate (DDAVP ORAL) 07-03 09:17: 01 Yes .6mg Take 0.6 mg by mouth in the morning. [facility] hospital haloperidoL 10 mg tablet 07-03 09:17: 01 Yes 10mg Take 1 tablet by mouth. [facility] acute hospital traZODone 100 mg tablet 07-03 09:17: 01 Yes 100mg Take 1 tablet by mouth at bedtime. [facility] acute hospital hydrOXYzine (VISTARIL) 50 mg capsule 07-03 09:17: 01 Yes 50mg Take 1 capsule by mouth 3 (three) times daily as needed for Itching. [facility] acute hospital Zinc 50 mg Tab 07-03 09:17: 01 Yes Take by mouth. [facility] acute hospital Zinc 50 mg Tab 07-03 09:17: 01 Yes Take by mouth. [facility] acute hospital polyethylen e glycol 3350 (MIRALAX) 17 gram/dose powder 07-03 09:12: 49 Yes 17g Take 17 g by mouth in the morning. [facility] hospital TAKE 1 TABLET BY MOUTH EVERY DAY IN THE MORNING 07-03 00:00: 00 11-23 00:00 :00 No Familia Donal Ahuja levothyroxi ne 100 mcg tablet 07-03 00:00: 00 07-23 00:00 :00 No [id number] 100ug Take 1 tablet by mouth every morning. [facility] acute hospital Dose Unknown 09-26 00:00: 00 Yes Familia [...] Take 1 tablet by mouth every morning. [facility] acute hospital ABILIFY 10 mg tablet 03-27 00:00: 00 07-03 00:00 :00 [facility] 03-26 00:00: 00 Yes 1mg Familia Ahuja guanfacine 1 mg tablet 03-26 00:00: 00 Yes 15mg Familia Ahuja Depakote ER 250 mg tablet,exte nded release 03-26 00:00: 00 Yes 1mg Familia Ahuja Depakote 500 mg tablet,shireen yed release 03-26 00:00: 00 Yes 1mg Familia Ahuja divalproex ER 250 mg 24 hr tablet 03-26 00:00: 00 07-03 00:00 :00 No [facility] acute hospital divalproex 500 mg EC tablet 03-26 00:00: 00 07-03 00:00 :00 No 1000mg Take 2 tablets by mouth. [facility] acute hospital guanFACINE 1 mg tablet 03-26 00:00: 00 07-03 00:00 :00 No [facility] acute hospital Abilify 10 mg tablet 2015-03 00:00: 00 [...] Systolic blood pressure 2024-11-23 01:05:00 136 mm[Hg] [facility] Diastolic blood pressure 2024-11-23 01:05:00 61 mm[Hg] [facility] Heart rate 2024-11-23 01:05:00 92 /min [facility] Body temperature 2024-11-23 01:05:00 36.56 Ramona [facility] Respiratory rate 2024-11-23 01:05:00 18 /min [facility] Body weight 2024-11-23 01:05:00 115.622 kg [facility] Oxygen saturation in Arterial blood by Pulse oximetry 2024-11-23 01:05:00 98 /min [facility] Systolic blood pressure 2024-10-07 16:19:00 119 mm[Hg] [facility] Diastolic blood pressure 2024-10-07 16:19:00 77 mm[Hg] [facility] Heart rate 2024-10-07 16:19:00 102 /min [facility] Body temperature 2024-10-07 16:19:00 36.56 Ramona [facility] Respiratory rate 2024-10-07 16:19:00 17 /min [facility] Body height 2024-10-07 16:19:00 162.6 cm [facility] Body weight 2024-10-07 16:19:00 113.399 kg [facility] BMI 2024-10-07 16:19:00 42.91 kg/m2 [facility] Oxygen saturation in Arterial blood by Pulse oximetry 2024-10-07 16:19:00 98 /min [facility] Systolic blood pressure 2023-11-26 00:58:00 118 mm[Hg] [facility] Diastolic blood pressure 2023-11-26 00:58:00 73 mm[Hg] [facility] Heart rate 2023-11-26 00:58:00 77 /min [facility] Body temperature 2023-11-26 00:58:00 36.39 Ramona [facility] Respiratory rate 2023-11-26 00:58:00 18 /min [facility] Body weight 2023-11-26 00:58:00 102.059 kg [facility] Oxygen saturation in Arterial blood by Pulse oximetry 2023-11-26 00:58:00 98 /min [facility] Systolic blood pressure 2023-01-04 15:24:00 131 mm[Hg] [facility] Diastolic blood pressure 2023-01-04 15:24:00 76 mm[Hg] [facility] Heart rate 2023-01-04 15:24:00 83 /min [facility] Body temperature 2023-01-04 15:24:00 37.17 Ramona [facility] Respiratory rate 2023-01-04 15:24:00 16 /min [facility] Body weight 2023-01-04 15:24:00 96.798 kg [facility] Oxygen saturation in Arterial blood by Pulse oximetry 2023-01-04 15:24:00 97 /min [facility] Systolic blood pressure 2022-12-04 18:17:00 125 mm[Hg] [facility] Diastolic blood pressure 2022-12-04 18:17:00 82 mm[Hg] [facility] Heart rate 2022-12-04 18:17:00 92 /min [facility] Body temperature 2022-12-04 18:17:00 35.94 Ramona [facility] Body height 2022-12-04 18:17:00 160 cm [facility] Body weight 2022-12-04 18:17:00 95.346 kg [facility] BMI 2022-12-04 18:17:00 37.24 kg/m2 [facility] Body mass index (BMI) [Percentile] Per age and sex 2022-12-04 18:17:00 98.18 % [facility] Oxygen saturation in Arterial blood by Pulse oximetry 2022-12-04 18:17:00 97 /min [facility] Systolic blood pressure 2022-07-20 15:33:00 118 mm[Hg] [facility] Diastolic blood pressure 2022-07-20 15:33:00 79 mm[Hg] [facility] Heart rate 2022-07-20 15:33:00 88 /min [facility] Body temperature 2022-07-20 15:33:00 36 Ramona [facility] Respiratory rate 2022-07-20 15:33:00 16 /min [facility] Body height 2022-07-20 15:33:00 162.6 cm [facility] Body weight 2022-07-20 15:33:00 106.958 kg [facility] BMI 2022-07-20 15:33:00 40.47 kg/m2 [facility] Body mass index (BMI) [Percentile] Per age and sex 2022-07-20 15:33:00 98.86 % [facility] Oxygen saturation in Arterial blood by Pulse oximetry 2022-07-20 15:33:00 98 /min [facility] Systolic blood pressure 2022-07-03 14:08:00 102 mm[Hg] [facility] Diastolic blood pressure 2022-07-03 14:08:00 71 mm[Hg] [facility] Heart rate 2022-07-03 14:08:00 96 /min [facility] Body temperature 2022-07-03 14:08:00 36.44 Ramona [facility] Respiratory rate 2022-07-03 14:08:00 18 /min [facility] Body height 2022-07-03 14:08:00 162.6 cm [facility] Body weight 2022-07-03 14:08:00 103.148 kg [facility] BMI 2022-07-03 14:08:00 39.03 kg/m2 [facility] Body mass index (BMI) [Percentile] Per age and sex 2022-07-03 14:08:00 98.68 % [facility] Oxygen saturation in Arterial blood by Pulse oximetry 2022-07-03 14:08:00 100 /min [facility] BP Systolic 2024-09-11 08:32:00 122 mm[Hg] [...] 2024-01-03 09:32:00 91.00 /min Mikki en [facility] [place] Respiratory Rate 2024-01-03 09:32:00 18.00 /min Familia [...] [facility] Diastolic (mm Hg) 2023-09-23 13:53:56 [facility] Heart Rate 2023-09-23 13:53:56 [facility] Temperature Oral (F) 2023-09-23 13:53:39 98.6 F [facility] Temperature Oral (F) 2023-09-23 08:25:00 98.4 F [facility] Heart Rate 2023-09-23 08:25:00 [facility] Respitory Rate 2023-09-23 08:25:00 [facility] Systolic (mm Hg) 2023-09-23 08:25:00 [facility] Diastolic (mm Hg) 2023-09-23 08:25:00 [facility] Temperature Oral (F) 2023-09-23 03:25:00 97.9 F [facility] Heart Rate 2023-09-23 03:25:00 [facility] Respitory Rate 2023-09-23 03:25:00 [facility] Systolic (mm Hg) 2023-09-23 03:25:00 [facility] Diastolic (mm Hg) 2023-09-23 03:25:00 [facility] Height 2023-09-22 20:28:00 160.02 cm [facility] BMI Calculated 2023-09-22 20:28:00 [facility] Weight 2023-09-22 20:28:00 [facility] BP Systolic 2016-05-28 13:15:00 107 mm[Hg] Step hen F Seymour BP Diastolic 2016-05-28 13:15:00 55 mm[Hg] Doc phen F Seymour Weight Measured 2016-05-28 13:15:00 139.80 pounds Familia F Seymour Height Measured 2016-05-28 13:15:00 60.00 inches Familia F Seymour Body Temperature 2016-05-28 13:15:00 97.70 degrees Familia F Syem[facility] Heart Rate 2016-05-28 13:15:00 95.00 /min Mikki [...] POCT MOLECULAR COVID 2024-11-23 01:09:00 Unknown, Attending [facility] POCT MOLECULAR STREP 2024-11-23 01:07:00 Unknown, Attending [facility] FREE T4 2023-01-04 16:21:00 Junior [facility] T3 UPTAKE 2023-01-04 16:21:00 Junior [facility] THYROID STIMULATING HORMONE 2023-01-04 16:21:00 Pacheco [facility] COMP. METABOLIC PANEL (36502) 2023-01-04 16:21:00 Junior [facility] LIPID PANEL (76026)(TOTAL CHOLESTEROL, TRIGLYCERIDES, HDL) 2023-01-04 16:21:00 Junior [facility] CBC WITH DIFF 2023-01-04 16:21:00 Pacheco [facility] GLYCOSYLATED HEMOGLOBIN (A1C) 2023-01-04 16:21:00 Pacheco [facility] URINALYSIS 2023-01-04 16:21:00 Junior [facility] FREE T3 2023-01-04 16:21:[facility] 2022-08-24 15:47:55 Carine Sagastume [facility] INSURANCE CORRESPONDENCE 2022-08-11 05:01:00 Doctor Unassigned, Mobile [facility] CORTISOL AM 2022-07-20 16:10:00 Carine Sagastume [facility] PROLACTIN 2022-07-20 16:10:00 Carine Sagastume [facility] THYROID STIMULATING HORMONE 2022-07-20 16:10:00 Carine Sagastume [facility] COMP. METABOLIC PANEL (65535) 2022-07-20 16:10:00 Carine Sagastume [facility] LIPID PANEL ([id number])(TOTAL CHOLESTEROL, TRIGLYCERIDES, HDL) 2022-07-20 16:10:00 Carine Sagastume [facility] ADRENOCORTICOTROPIC HORMONE 2022-07-20 16:10:00 Carine Sagastume [facility] THYROID PEROXIDASE (TPO) AB 2022-07-20 16:10:00 Carine Sagastume [facility] URINALYSIS 2022-07-03 15:13:00 Ying Pacheco [facility] FREE T4 2022-07-03 15:10:00 Ying Pacheco [facility] THYROID STIMULATING HORMONE 2022-07-03 15:10:00 Ying Pacheco [facility] COMP. METABOLIC PANEL (88572) 2022-07-03 15:10:00 Ying Pacheco [facility] LIPID PANEL (41636)(TOTAL CHOLESTEROL, TRIGLYCERIDES, HDL) 2022-07-03 15:10:00 Ying Pacheco [facility] CBC WITH DIFF 2022-07-03 15:10:00 Ying Pacheco [facility] GLYCOSYLATED HEMOGLOBIN (A1C) 2022-07-03 15:10:00 Ying Pacheco [facility] ASSIGNMENT OF BENEFITS 2022-07-03 13:42:33 Doctor Unassigned, Mobile [facility] REFERRAL- REQUEST/RESPONSE 2019-07-21 05:01:00 Doctor Unassigned, Mobile [facility] Encounters Start Date/Time End Date/Time Encounter Type Admission Type Attending Clinicians Care Facility Care Department Encounter ID Source 2024-02-04 21:24:13 Emergency HFD HFD [id number] [facility] Depart ent 2023-09-30 08:55:00 Outpatient PRINCE MORRISON [id number] [facility] chio 2022-02-17 11:58:59 Outpatient [facility] [id number] [facility] 2021-06-14 08:42:26 [facility] [id number] [facility] 2024-12-04 08:19:32 2024-12-04 08:19:32 Outpatient SFA SFA [id number] Familia Ahuja 2024-11-30 09:14:47 2024-11-30 09:14:47 Outpatient SFA SFA [id number] Familia Ahuja 2024-11-22 20:00:00 2024-11-22 20:22:52 Urgent Care R RAMONA RUBIN [facility] 1..840.114 [id number] General acute hospital 2024-11-17 09:25:16 2024-11-17 09:25:16 Outpatient SFA SFA [id number] Familia Ahuja 2024-10-27 14:27:37 2024-10-27 14:27:37 Outpatient SFA SFA [id number] Familia Ahuja 2024-10-24 12:33:10 2024-10-24 12:33:10 Outpatient SFA SFA [id number] aFmilia Ahuja 2024-10-07 10:40:00 2024-10-07 11:40:41 Urgent Care R ELSIE SIMPSON [facility] 1..840.114 [id number] General acute hospital 2024-09-25 14:41:37 2024-09-25 14:41:37 Outpatient SFA SFA [id number] Familia Mansfield Seymour 2024-09-11 08:26:04 2024-09-11 08:26:04 Outpatient SFA SFA [id number] Familia Ahuja 2024-09-11 00:00:00 2024-09-11 00:00:00 Outpatient Visit SFA [id number] Familia Ahuja 2024-09-07 14:10:38 2024-09-07 14:10:38 Outpatient SFA SFA [id number] Familia Mansfield Seymour 2024-08-27 14:11:53 2024-08-27 14:11:53 Outpatient SFA SFA [id number] Familia Ahuja 2024-08-13 16:40:16 2024-08-13 16:40:16 Outpatient SFA SFA [id number] Familia Ahuja 2024-07-16 10:11:30 2024-07-16 10:11:30 Outpatient SFA SFA [id number] Familia Mansfield Seymour 2024-07-10 12:16:43 2024-07-10 12:16:43 Outpatient SFA SFA [id number] Familia Mansfield Seymour 2024-07-03 20:55:00 2024-07-04 01:26:00 Emergency [facility] General Medicine [id number] [facility] 2024-06-29 15:02:39 2024-06-29 15:02:39 Outpatient SFA SFA [id number] Familia Mansfield Seymour 2024-06-18 08:01:48 2024-06-18 08:01:48 Outpatient SFA SFA [id number] Familia Mansfield [place] 2024-06-15 17:06:44 2024-06-15 17:06:44 Outpatient SFA SFA [id number] Familia Mansfield [place] 2024-06-10 13:21:16 2024-06-10 13:21:16 Outpatient SFA SFA [id number] Familia Mansfield Seymour 2024-06-10 00:00:00 2024-06-10 00:00:00 Outpatient Visit SFA 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 Familia Ahuja 2024-06-01 17:33:24 2024-06-01 17:33:24 Outpatient SFA SFA [id number] Familia Ahuja 2024-05-22 12:36:53 2024-05-22 12:36:53 Outpatient SFA SFA [id number] Familia Ahuja 2024-05-18 10:25:59 2024-05-18 10:25:59 Outpatient SFA SFA [id number] Familia Ahuja 2024-05-12 09:49:23 2024-05-12 09:49:23 Outpatient SFA SFA [id number] Familia Ahuja 2024-04-23 14:25:11 2024-04-23 14:25:11 Outpatient SFA SFA [id number] Familia Ahuja 2024-04-13 08:33:30 2024-04-13 08:33:30 Outpatient SFA SFA [id number] Familia Ahuja 2024-04-08 10:27:33 2024-04-08 10:27:33 Outpatient SFA SFA [id number] Familia Mansfield Seymour 2024-04-08 00:00:00 2024-04-08 00:00:00 Outpatient Visit SFA [id number] Familia Ahuja 2024-03-26 13:56:31 2024-03-26 13:56:31 Outpatient SFA SFA [id number] Familia Ahuja 2024-03-20 07:58:40 2024-03-20 07:58:40 Outpatient SFA SFA [id number] 1230 Familia Ahuja 2024-02-27 10:23:57 2024-02-27 10:23:57 Outpatient SFA SFA [id number] 1208 Familia Ahuja 2024-02-16 08:09:42 2024-02-16 08:09:42 Outpatient SFA SFA [id number] 1127 Familia Mansfield Seymour 2024-02-04 21:05:00 2024-02-04 22:33:00 Emergency EM Suarez, Katan [facility] [id number] [facility] 2024-01-14 17:36:33 2024-01-14 17:36:33 Outpatient SFA SFA 1025 Familia Ahuja 2024-01-13 08:05:41 2024-01-13 08:05:41 Outpatient SFA [facility] 1024 Familia Ahuja 2024-01-03 09:33:41 2024-01-03 09:33:41 Outpatient SFA [facility] 1014 Familia Ahuja 2024-01-03 00:00:00 2024-01-03 00:00:00 Outpatient Visit SFA [id number] Familia Ahuja 2024-01-01 00:00:00 2024-01-01 17:17:13 Nurse Triage Maida Whiting Jenny L [facility] 1.2.840.114 350.1.13.10 4.2.7.2.686 [id number] General acute hospital 2023-12-29 11:01:31 2023-12-29 11:01:31 Outpatient SFA [facility] 1009 Familia Ahuja 2023-12-24 08:57:41 2023-12-24 08:57:41 Outpatient SFA [facility] 1004 Familia Ahuja 2023-11-25 00:00:00 2023-11-26 10:07:04 Telephone Elmer Maddox [facility] 1.2.840.114 350.1.13.10 4.2.7.2.686 [id number] General acute hospital 2023-11-25 19:40:00 2023-11-25 20:54:59 Outpatient R ELMER MADDOX SHAHNAZ [facility] [id number] General acute hospital 2023-11-25 19:40:00 2023-11-25 20:54:59 Urgent Care Elmer Maddox Unknown, [facility] 1.2.840.114 350.1.13.10 4.2.7.2.686 [id number] General acute hospital 2023-11-24 17:38:46 2023-11-24 17:38:46 Outpatient SFA [facility] [id number] 0904 Familia Ahuja 2023-11-24 00:00:00 2023-11-24 00:00:00 Outpatient Visit [facility] [id number] Familia Ahuja 2023-10-15 11:41:16 2023-10-15 11:41:16 Outpatient SFA [facility] [id number] Familia Ahuja 2023-09-22 15:26:00 2023-09-23 16:35:00 Emergency E RUBA [facility] [id number] [facility] 2023-09-20 14:20:45 2023-09-20 14:20:45 Outpatient [facility] [id number] 0701 Familia Ahuja 2023-07-06 10:30:00 2023-07-06 10:30:00 Outpatient YING CRUZ [facility] [id number] General acute hospital 2023-04-07 13:30:00 2023-04-07 13:30:00 Outpatient SUGEY CHAVES [facility] [id number] General acute hospital 2023-01-08 00:00:00 2023-01-08 00:00:00 Patient Outreach Jessie Reinoso [facility] 1.2.840.114 350.1.13.10 4.2.7.2.686 [id number] General acute hospital 2023-01-07 00:00:00 2023-01-07 00:00:00 Telephone Ying Pacheco [facility] 1.2.840.114 350.1.13.10 4.2.7.2.686 [id number] General acute hospital 2023-01-04 11:15:00 2023-01-04 11:19:37 Fruit Dumper Visit 2, Adc Lab Ying Pacheco [facility] 1.2.840.114 350.1.13.10 4.2.7.2.686 [id number] General acute hospital 2023-01-04 10:00:00 2023-01-04 11:08:38 Office Visit Ying Pacheco [facility] 1.2.840.114 350.1.13.10 4.2.7.2.686 [id number] General acute hospital 2023-01-04 10:00:00 2023-01-04 11:08:38 Outpatient R YING PACHECO [facility] [id number] General acute hospital 2022-12-31 11:12:58 2022-12-31 11:12:58 Outpatient [facility] [id number] Familia Ahuja 2022-12-07 14:24:45 2022-12-07 14:24:45 Outpatient SFA [facility] [id number] Familia Ahuja 2022-12-04 13:30:00 2022-12-04 14:00:00 Office Visit Ying Pacheco [facility] 1.2.840.114 350.1.13.10 4.2.7.2.686 [id number] General acute hospital 2022-12-04 13:30:00 2022-12-04 13:30:00 Outpatient R YING PACHECO [facility] [id number] General acute hospital 2022-12-04 00:00:00 2022-12-04 00:00:00 Letter (Out) Ying Pacheco [facility] 1.2.840.114 350.1.13.10 4.2.7.2.686 [id number] General acute hospital 2022-11-17 09:30:00 2022-11-17 09:30:00 Outpatient R CARINE SAGASTUME [facility] [id number] General acute hospital 2022-09-25 20:31:00 2022-09-26 20:50:00 Emergency EM Maximus Dodson [facility] [id number] [facility] 2022-08-24 09:20:56 2022-08-24 23:59:00 Outpatient R DOROTHEA SAGASTUMED [facility] [id number] General acute hospital 2022-08-24 09:20:56 2022-08-24 23:59:00 Hospital Encounter Dorothea Sagastumed [facility] 1.0.114 350.1.13.10 4.2.7.2.686 [id number] General acute hospital 2022-08-20 13:36:44 2022-08-20 13:36:44 Outpatient SFA [facility] [id number] 0601 Familia Mansfield Seymour 2022-08-19 00:00:00 2022-08-19 00:00:00 Telephone Ying Pacheco [facility] 1.840.114 350.1.13.10 4.2.7.2.686 [id number] General acute hospital 2022-08-11 00:00:00 2022-08-11 00:00:00 Telephone Junior Ying [facility] 1.840.114 350.1.13.10 4.2.7.2.686 [id number] General acute hospital 2022-08-11 00:00:00 2022-08-11 00:00:00 Orders Only Doctor Unassigned, Mobile [facility] 1.2840.114 350.1.13.10 4.2.7.2.686 [id number] General acute hospital 2022-07-23 14:22:37 2022-07-23 14:22:37 Outpatient SFA [facility] [id number] Familia Ahuja 2022-07-23 00:00:00 2022-07-23 00:00:00 Refill Maikel Sagastumemad Jeaneth [facility] 1.2.840.114 350.1.13.10 4.2.7.2.686 [id number] General acute hospital 2022-07-20 10:30:00 2022-07-20 11:00:00 Office Visit Dorothea Sagastumed Jeaneth [facility] 1.2.840.114 350.1.13.10 4.2.7.2.686 [id number] General acute hospital 2022-07-20 10:30:00 2022-07-20 10:30:00 Outpatient R DOROTHEA SAGASTUMED [facility] [id number] General acute hospital 2022-07-03 10:15:00 2022-07-03 10:30:00 Fruit Dumper Visit 2, [facility] 1..840.114 350.1.13.10 4.2.7.2.686 [id number] General acute hospital 2022-07-03 08:30:00 2022-07-03 09:55:01 Outpatient R JACK PACHECOSSICA [facility] [id number] General acute hospital 2022-07-03 08:30:00 2022-07-03 09:55:01 Office Visit Junior [facility] 1.2.840.114 350.1.13.10 4.2.7.2.686 [id number] General acute hospital 2022-07-03 00:00:00 2022-07-03 00:00:00 Orders Only Doctor Unassigned, Mobile [facility] 1.2840.114 350.1.13.10 4.2.7.2.686 [id number] General acute hospital 2021-12-12 15:42:00 2021-12-12 15:42:00 Outpatient Betty Santana [facility] [id number] [facility] 2020-02-29 13:30:00 2020-02-29 13:30:00 Outpatient AKBAR HINSON [facility] [id number] [facility] 2019-11-17 14:00:00 2019-11-17 14:00:00 Outpatient YESIKA HELLER [facility] [id number] General acute hospital 2019-11-14 10:10:00 2019-11-14 10:10:00 Outpatient SHADE YUAN [facility] [id number] General acute hospital 2019-09-06 13:00:00 2019-09-06 13:00:00 Outpatient SHADE YUAN [facility] [id number] General acute hospital 2019-09-06 00:00:00 2019-09-06 00:00:00 Telephone Shade Julien [facility] 1.2840.114 350.1.13.10 4.2.7.2.686 [id number] General acute hospital 2019-07-21 00:00:00 2019-07-21 00:00:00 Orders Only Doctor Unassigned, Mobile [facility] 1.2840.114 350.1.13.10 4.2.7.2.686 [id number] General acute hospital 2019-06-26 13:20:00 2019-06-26 13:20:00 Outpatient MEHRAN PARIKH [facility] [id number] General acute hospital 2019-06-23 00:00:00 2019-06-23 00:00:00 Telephone Pcp, Patient Does Not Have A [facility] 1.2840.114 350.1.13.10 4.2.7.2.686 [id number] General acute hospital Results Test Description Test Time Test Comments Results Result Co mments Source [id number] 01:14:29* Test Item Value Reference Range Interpretation Comme nts POCT Molecular Strep (test c ode = 46906-7) Negative Negative Lab Interpretation (test cod e = 72487-3) Normal [facility] [id number] 00:00:00* Test Item Value Reference Range Interpretation Comme nts GLUCOSE (test code = 2345-7) 86 mg/dL UREA NITROGEN (BUN) (test code = 3094-0) 14 mg/dL CREATININE (test code = 2160-0) 0.76 mg/dL EGFR (test code = 50532-5) 115 mL/min/1.73m2 BUN/CREATININE RATIO (test code = 3097-3) SEE NOTE: (calc) SODIUM (test code = 2951-2) 140 mmol/L POTASSIUM (test code = 2823-3) 4.5 mmol/L CHLORIDE (test code = 2075-0) 105 mmol/L CARBON DIOXIDE (test code = 2027-9) 28 mmol/L CALCIUM (test code = 99583-2) 9.7 mg/dL PROTEIN, TOTAL (test code = 2885-2) 6.6 g/dL ALBUMIN (test code = 1751-7) 4.0 g/dL GLOBULIN (test code = 43471-0) 2.6 g/dL(calc) ALBUMIN/GLOBULIN RATIO (test code = [...] cells/uL ABSOLUTE BAND NEUTROPHILS (test code = 57106-0) DNR cells/uL ABSOLUTE METAMYELOCYTES (kalie t code = 81747-7) DNR cells/uL ABSOLUTE MYELOCYTES (test code = 50517-3) DNR cells/uL ABSOLUTE PROMYELOCYTES (test code = 41729-4) DNR cells/uL ABSOLUTE LYMPHOCYTES (test code = 731-0) 2277 cells/uL ABSOLUTE MONOCYTES (test cod e = 742-7) 450 cells/uL ABSOLUTE EOSINOPHILS (test code = 711-2) 108 cells/uL ABSOLUTE BASOPHILS (test cod e = 704-7) 27 cells/uL ABSOLUTE BLASTS (test code = 38187-6) DNR cells/uL ABSOLUTE NUCLEATED RBC (test code = 77114-8) DNR cells/uL NEUTROPHILS (test code = 770-8) 68.2 % BAND NEUTROPHILS (test code = 764-1) DNR % METAMYELOCYTES (test code = 740-1) DNR % MYELOCYTES (test code = 749-2) DNR % PROMYELOCYTES (test code = 783-1) DNR % LYMPHOCYTES (test code = 736-9) 25.3 % REACTIVE LYMPHOCYTES (test code = 76348-4) DNR % MONOCYTES (test code = 5905-5) 5.0 % EOSINOPHILS (test code = 713-8) 1.2 % BASOPHILS (test code = 706-2) 0.3 % BLASTS (test code = 709-6) DNR % NUCLEATED RBC (test code = 23220-9) DNR /100WBC COMMENT(S) (test code = 8251-1) DNR Familia [id number] 00:00:00* Test Item Value Reference Range Interpretation Comme nts TSH (test code = 3016-3) 8.44 mIU/L Familia AhujaLIPID [id number] 00:00:00* Test Item Value Reference Range Interpretation Comme nts CHOLESTEROL, TOTAL (test cod e = 2093-3) 222 mg/dL HDL CHOLESTEROL (test code = 2085-9) 54 mg/dL TRIGLYCERIDES (test code = 2571-8) 129 mg/dL LDL-CHOLESTEROL (test code = 22305-6) 143 mg/dL(calc) CHOL/HDLC RATIO (test code = 9830-1) 4.1 (calc) NON HDL CHOLESTEROL (test code = 46447-4) 168 mg/dL(calc) Familia AhujaHEMOGLOBIN [id number] 00:00:00* Test Item Value Reference Range Interpretation Comme emily HEMOGLOBIN A1c (test code = 4548-4) 5.5 % Familia AhujaTHYROID PANEL WITH [id number] 00:00:00* Test Item Value Reference Range Interpretation Comme nts T3 UPTAKE (test code = 3050-2) 27 % T4 (THYROXINE), TOTAL (test code = 3026-2) 3.9 mcg/dL FREE T4 INDEX (T7) (test cod e = 06475-6) 1.1 TSH (test code = 3016-3) 68.20 mIU/L Familia AhujaTOXOPLASMA AB, [id number] 00:52:09* Test Item Value Reference Range Interpretation Comme nts TOXOPLASMA AB, IgM (test code = 54493) 0.164 INDEX SEE BELOW INTERPRETATI ON UNITS RANGE ----- ----- NON-REACTIVE INDEX <0.800 EQUIVOCAL INDEX 0.800-0.999 REACTIVE INDEX >=1.000 UNLESS OTHERWISE INDICATED, ALL TESTING PERFORMED AT [facility] [address] [place] [address] MANUFACTURING SHIFT SUPERVISOR: FAUSTO BAUMANN M.D. CLIA NUMBER [id number] [place]. [id number] TOXOPLASMA IgM [id number] 00:00:00* Test Item Value Reference Range Interpretation Comme nts TOXOPLASMA AB, IgM (test cod e = 61522) 0.164 INDEX Familia Mansfield AustinTOXOPLASMA IgM [id number] 00:00:00* Test Item Value Reference Range Interpretation Comme nts TOXOPLASMA AB, IgM (test cod e = 65003) 0.164 INDEX Familia AhujaTHYROID II PROFILE (TU,T4,FTI,TSH)2024-04-09 23:54:50* Test Item Value Reference Range Interpretation Comme nts T-UPTAKE (test code = 2817) 27.2 % 24.3-39.0 THYROX. BIND. CAPAC. (test code = 98419) 1.2 0.8-1.3 T4 (THYROXINE) (test code = 2819) 3.4 UG/DL 4.5-10.5 L CORRECTED T4 (FTI) (test cod e = 2820) 2.8 UG/DL 4.2-11.6 L TSH, THIRD GENERATION (test code = 2821) >100.000 UIU/ML 0.400-4.100 H TSH, THIRD [id number] 23:54:50* Test Item Value Reference Range Interpretation Comme nts TSH, THIRD GENERATION (test code = 2821) >100.000 UIU/ML 0.400-4.100 H COMPREHENSIVE METABOLIC [id number] 23:54:06* Test Item Value Reference Range Interpretation Comme nts GLUCOSE (test code = 2217) 87 MG/DL 70-99 BUN (test code = 2208) 12 MG/DL 6-20 CREATININE (test code = 2214) 0.75 MG/DL 0.50-1.10 eGFR (2020 CKD-EPI) (test code = 99533) 118 ML/MIN/1.73 >60 CALC BUN/CREAT (test code [...] code = 2219) 10 U/L 5-40 LIPID [id number] 23:54:06* Test Item Value Reference Range Interpretation [...] SPECIMENS. FOR MOREINFORMATION, SEE CLIENT ANNOUNCEMENT AT [email or web address] RISK RATIO LDL/HDL (test code = 2238) 2.62 RATIO <3.22 HEMOGLOBIN [id number] 05:19:16* Test Item Value Reference Range Interpretation Comme nts HEMOGLOBIN A1c (test code = 15431) 5.3 % 4.2-5.6 UNLESS OTHERWISE INDICATED, ALL TESTING PERFORMED AT [facility] [address] [place] [address] MANUFACTURING SHIFT SUPERVISOR: FAUSTO BAUMANN M.D. CLIA NUMBER [id number] [place]. [id number] CBC W/AUTO DIFF WITH [id number] 03:45:46* Test Item Value Reference Range Interpretation [...] = 1065) 0.0 /100 WBC'S See_Comment [Automated PATHEOSa ge] The system which generated this result [...] 0.00-0.10 ABS NUCLEATED RBCS (test code = 90957) 0.00 K/UL 0.00-0.11 CBC W/AUTO [id number] 00:00:00* Test Item Value Reference Range Interpretation [...] ABS NUCLEATED RBCS (test cod e = 54508) 0.00 K/UL Familia AhujaCOMPREHENSIVE METABOLIC [id number] 00:00:00* Test Item Value Reference Range Interpretation Comme nts GLUCOSE (test code = 2217) 87 MG/DL BUN (test code = 2208) 12 MG/DL CREATININE (test code = 2214) 0.75 MG/DL eGFR (2020 CKD-EPI) (test code = 59489) 118 ML/MIN/1.73 CALC BUN/CREAT (test code = [...] code = 2219) 10 U/L Familia AhujaLIPID [id number] 00:00:00* Test Item Value Reference Range Interpretation [...] % THYROX. BIND. CAPAC. (test code = 96319) 1.2 T4 (THYROXINE) (test code = 2819) 3.4 UG/DL CORRECTED T4 (FTI) (test cod e = 2820) 2.8 UG/DL TSH, THIRD GENERATION (test code = 2821) >100.000 UIU/ML Familia AhujaTSH, THIRD [id number] 00:00:00* Test Item Value Reference Range Interpretation Comme emily TSH, THIRD GENERATION (test code = 2821) >100.000 UIU/ML Familia AhujaHEMOGLOBIN A1c [ADDED]2024-04-09 00:00:00* Test Item Value Reference Range Interpretation Comme emily HEMOGLOBIN A1c (test code = 18374) 5.3 % Familia AhujaCBC W/AUTO [id number] 00:00:00* Test Item Value Reference Range Interpretation [...] ABS NUCLEATED RBCS (test cod e = 84870) 0.00 K/UL Familia AhujaCOMPREHENSIVE METABOLIC [id number] 00:00:00* Test Item Value Reference Range Interpretation Comme nts GLUCOSE (test code = 2217) 87 MG/DL BUN (test code = 2208) 12 MG/DL CREATININE (test code = 2214) 0.75 MG/DL eGFR (2020 CKD-EPI) (test code = 20936) 118 ML/MIN/1.73 CALC BUN/CREAT (test code = [...] code = 2219) 10 U/L Familia AhujaLIPID [id number] 00:00:00* Test Item Value Reference Range Interpretation [...] % THYROX. BIND. CAPAC. (test code = 56592) 1.2 T4 (THYROXINE) (test code = 2819) 3.4 UG/DL CORRECTED T4 (FTI) (test cod e = 2820) 2.8 UG/DL TSH, THIRD GENERATION (test code = 2821) >100.000 UIU/ML Familia AhujaHEMOGLOBIN A1c [ADDED]2024-04-09 00:00:00* Test Item Value Reference Range Interpretation Comme eimly HEMOGLOBIN A1c (test code = 22845) 5.3 % Familia AhujaTSH, THIRD [id number] 00:00:00* Test Item Value Reference Range Interpretation Comme emily TSH, THIRD GENERATION (test code = 2821) >100.000 UIU/ML Familia [id number] 22:30:00* Test Item Value Reference Range Interpretation Comme emily LIPASE (test code = LIP) 55 UNITS/L 23-300 N BASIC METABOLIC [id number] 22:30:00* Test Item Value Reference Range Interpretation [...] CA) 9.9 MG/DL 8.4-10.2 N HEPATIC FUNCTION [id number] 22:30:00* Test Item Value Reference Range Interpretation Comme nts TOTAL PROTEIN (test code = PROT) 7.7 G/DL 6.3-8.2 N Ortho Clinical D iagnostic has made us aware of newinformation regarding the potential interference ofEltrombopag (a bone marrow stimulant used to treatthrombocytonmenia and aplastic anemia) with specific assayson the [employer] 5600 of which Total Protein is one [...] ALKP) 74 UNITS/L 38-126 N HCG SERUM [id number] 22:28:00* Test Item Value Reference Range Interpretation Comme nts HCG SERUM QUAL (test code = HCGQL) NEGATIVE NEGATIVE URINALYSIS [id number] 22:27:00* Test Item Value Reference Range Interpretation [...] NONE SOURCE OF URINE: CLEAN CATCHUR HCG [id number] 22:27:00* Test Item Value Reference Range Interpretation Comme nts UR HCG QUAL (test code = HCGQLU) NEGATIVE NEGATIVE SOURCE OF URINE: CLEAN CATCHCBC W/O [id number] 22:17:00* Test Item Value Reference Range Interpretation [...] code = NRBC#) 0.00 K/mm3 0.0-0.1 N [id number] 19:54:00* Test Item Value Reference Range Interpretation Comme nts Coronavirus (COVID-19) TARAH (test code = Coronavirus (COVID-19) TARAH) Not Detected 8(09/23/23 2:54 PM) [facility] 22:47:00* Test Item Value Reference Range Interpretation [...] UDS Note) See Note 2*NA*(09/22/23 5:47 PM) [facility]2024-07-03 22:47:00* Test Item Value Reference Range Interpretation [...] UDS Note) See Note 2*NA*(09/22/23 5:47 PM) [facility] [id number] 21:10:00* Test Item Value Reference Range Interpretation [...] (test code = hCG Tot) no gt [facility]DzoqeptUBVBAGATRKYRD9027-44-44 21:10:00* Test Item Value Reference Range Interpretation Comme nts hCG Tot (test code = hCG Tot) no gt [facility]ballSlaacgfVKCTVEMIOR2339-80-08 21:10:00* Test Item Value Reference Range Interpretation [...] 37.6-49.1 Platelet (test code = Platelet) 214 [id number] MPV (test code = MPV) 13.2 9.0-12.6 [...] t code = Segmented Neutrophils #) 6.07 2.03-7.93805 Lymphocytes # (test code = Lymphocytes #) 1.99 1.09-3.33625 Monocytes # (test code = Monocytes #) 0.40 0.27-0.78 103 Eosinophils # (test code = Eosinophils #) 0.11 0.02-0.35748 Basophils # (test code = Basophils #) 0.02 0.01-0.09 103 Immature Granulocytes (test code = Immature Granulocytes) 0.02 0.01-0.87653 [facility]TS[facility]JWGQ6659-17-26 21:10:00* Test Item Value Reference Range Interpretation Comme nts Acetaminoph Lvl (test code = Acetaminoph Lvl) (09/22/23 4:10 PM) 10-20 Ethanol Lvl (test code = Ethanol Lvl) no gt Etoh (%) (test code = Etoh (%)) no gt Salicylate Lvl (test code = Salicylate Lvl) no gt <=30.0 [facility] [id number] 21:10:00* Test Item Value Reference Range Interpretation [...] 0.7-1.6 eGFR (test code = eGFR) 99 [facility] [id number] 03:12:00* Test Item Value Reference Range Interpretation Comme nts UA COLOR (test code = COLU) YELLOW YELLOW UA APPEARANCE (test code = APPU) CLEAR CLEAR IS THE SAMPLE FROM ER OR L&D?Y IF THE ANSWER IS NO,PLEASE DOCUMENT TWO RN SIGNATURES HERE- by [id number] 09/26/22 0312 UA BILIRUBIN DIPSTICK (test code [...] FEW Urine Source? MidstreamDRUGS OF ABUSE SCREEN [id number] 03:12:00* Test Item Value Reference Range Interpretation Comme nts URN COCAINE (test code = COCAURN) NEGATIVE See_Comment [Automated PATHEOSa [employer]] The system which generated this result transmitted reference range: <300 ng/mL. The reference range was not used to interpret this result as normal/abnormal. URN CANNABINOIDS (test code = CANNABURN) NEGATIVE See_Comment [Automated [employer]] The system which generated this result transmitted reference range: <50 ng/mL. The reference range was not used to interpret this result as normal/abnormal. URN AMPHETAMINE (test code = AMPHETURN) NEGATIVE See_Comment [Automated [employer] day] The system which generated this result transmitted reference range: <1000 ng/mL. The reference range was not used to interpret this result as normal/abnormal. URN BARBITURATE (test code = BARBITURN) NEGATIVE See_Comment [Automated [employer] day] The system which generated this result [...] (test code = OPIATURN) NEGATIVE See_Comment [Automated [employer] ge] The system which generated this result [...] (test code = METHAURN) NEGATIVE See_Comment [Automated PATHEOSa ge] The system which generated this result transmitted reference range: <300 ng/mL. The reference range was not used to interpret this result as normal/abnormal. Urine Source? [id number] 22:04:00* Test Item Value Reference Range Interpretation Comme nts SALICYLATE (test code = NUSRAT) < 3.0 mg/dL 2.8-20.0 N [id number] 22:04:00* Test Item Value Reference Range Interpretation [...] ANADDITIONAL CHARGE TO THE PATIENT. BASIC METABOLIC [id number] 22:04:00* Test Item Value Reference Range Interpretation [...] CA) 9.4 mg/dL 8.5-10.1 N HEPATIC FUNCTION [id number] 22:04:00* Test Item Value Reference Range Interpretation [...] ALKP) 52 IUnit/L 37-107 N HCG SERUM [id number] 22:04:00* Test Item Value Reference Range Interpretation Comme nts HCG SERUM QUAL (test code = HCGQL) NEGATIVE NEGATIVE This HCGQL test is NOT applicable for MALE patients.Check with nurse about probable order error.If Tumor Marker Test needed, nurse should order test "HCGTU"(Test #[id number]) [id number] 22:04:00* Test Item Value Reference Range Interpretation Comme nts ACETAMINOPHEN (test code = ACET) < 0.2 mg/dL 1.0-3.0 L CAUTION: TO CONVERT FROM MG/DL TO MCG/ML MULTIPLY RESULT BY10 COVID 19 INHOUSE [id number] 21:56:00* Test Item Value Reference Range Interpretation Comme nts COVID 19 INHOUSE AG (test co de = [id number]) NEGATIVE NEGATIVE CBC W/O [id number] 21:38:00* Test Item Value Reference Range Interpretation [...] = MPV) 12.8 fL 6.7-11.0 H VALPROIC [id number] 00:00:00* Test Item Value Reference Range Interpretation Comme nts VALPROIC ACID (test code = 3025) 8.1 UG/ML Familia Barcenas (HEPATIC) FUNCTION [id number] 00:00:00* Test Item Value Reference Range Interpretation [...] = 2219) 18 U/L Familia AhujaCBC W/AUTO [id number] 00:00:00* Test Item Value Reference Range Interpretation [...] = 1015) 268 K/UL Familia AhujaCOMPREHENSIVE METABOLIC [id number] 00:00:00* Test Item Value Reference Range Interpretation Comme nts GLUCOSE (test code = 2217) 85 MG/DL BUN (test code = 2208) 15 MG/DL CREATININE (test code = 2214) 0.46 MG/DL eGFR AMER. (test code = 64293) (NOTE) ML/MIN/1.73 eGFR NON- AMER. (test code = 46697) NO CALC ML/MIN/1.73 CALC BUN/CREAT (test code [...] code = 2219) 18 U/L Familia AhujaVALPROIC [id number] 00:00:00* Test Item Value Reference Range Interpretation Comme nts VALPROIC ACID (test code = 3025) 8.1 UG/ML Familia TurnerVER (HEPATIC) FUNCTION [id number] 00:00:00* Test Item Value Reference Range Interpretation [...] = 2219) 18 U/L Familia AhujaCBC W/AUTO [id number] 00:00:00* Test Item Value Reference Range Interpretation [...] 1015) 268 K/UL Familia Mansfield SeymourCOMPREHENSIVE METABOLIC [id number] 00:00:00* Test Item Value Reference Range Interpretation Comme nts GLUCOSE (test code = 2217) 85 MG/DL BUN (test code = 2208) 15 MG/DL CREATININE (test code = 2214) 0.46 MG/DL eGFR AMER. (test code = 86779) (NOTE) ML/MIN/1.73 eGFR NON- AMER. (test code = 14492) NO CALC ML/MIN/1.73 CALC BUN/CREAT (test code [...] = 2219) 18 U/L Familia Mansfield SeymourVALPROIC [id number] 00:00:00* Test Item Value Reference Range Interpretation Comme nts VALPROIC ACID (test code = 3025) 8.1 UG/ML Familia AhujaABHISHEK (HEPATIC) FUNCTION [id number] 00:00:00* Test Item Value Reference Range Interpretation [...] = 2219) 18 U/L Familia AhujaCBC W/AUTO [id number] 00:00:00* Test Item Value Reference Range Interpretation [...] 1015) 268 K/UL Familia Mansfield SeymourCOMPREHENSIVE METABOLIC [id number] 00:00:00* Test Item Value Reference Range Interpretation Comme nts GLUCOSE (test code = 2217) 85 MG/DL BUN (test code = 2208) 15 MG/DL CREATININE (test code = 2214) 0.46 MG/DL eGFR AMER. (test code = 72047) (NOTE) ML/MIN/1.73 eGFR NON- AMER. (test code = 05027) NO CALC ML/MIN/1.73 CALC BUN/CREAT (test code [...] code = 2219) 18 U/L Familia AhujaVALPROIC [id number] 00:00:00* Test Item Value Reference Range Interpretation Comme nts VALPROIC ACID (test code = 3025) 8.1 UG/ML Familia AhujaLIVER (HEPATIC) FUNCTION [id number] 00:00:00* Test Item Value Reference Range Interpretation [...] = 2219) 18 U/L Familia AhujaCBC W/AUTO [id number] 00:00:00* Test Item Value Reference Range Interpretation [...] = 1015) 268 K/UL Familia AhujaCOMPREHENSIVE METABOLIC [id number] 00:00:00* Test Item Value Reference Range Interpretation Comme nts GLUCOSE (test code = 2217) 85 MG/DL BUN (test code = 2208) 15 MG/DL CREATININE (test code = 2214) 0.46 MG/DL eGFR AMER. (test code = 40396) (NOTE) ML/MIN/1.73 eGFR NON- AMER. (test code = 45883) NO CALC ML/MIN/1.73 CALC BUN/CREAT (test code [...] code = 2219) 18 U/L Familia AhujaVALPROIC [id number] 00:00:00* Test Item Value Reference Range Interpretation Comme nts VALPROIC ACID (test code = 3025) 8.1 UG/ML Familia AhujaLIVER (HEPATIC) FUNCTION [id number] 00:00:00* Test Item Value Reference Range Interpretation [...] = 2219) 18 U/L Familia AhujaCBC W/AUTO [id number] 00:00:00* Test Item Value Reference Range Interpretation [...] 1015) 268 K/UL Familia Mansfield SeymourCOMPREHENSIVE METABOLIC [id number] 00:00:00* Test Item Value Reference Range Interpretation Comme nts GLUCOSE (test code = 2217) 85 MG/DL BUN (test code = 2208) 15 MG/DL CREATININE (test code = 2214) 0.46 MG/DL eGFR AMER. (test code = 20386) (NOTE) ML/MIN/1.73 eGFR NON- AMER. (test code = 43566) NO CALC ML/MIN/1.73 CALC BUN/CREAT (test code [...] Notes Date/Time Note Provider Source Familia Ahuja [facility]2025-03-22 00:00:00 Familia Ahuja [facility]2025-01-18 00:00:00 Familia Ahuja [facility]2024-11-15 22:28:00 [facility] ([facility] EMERGENCY PROVIDER REPORT REPORT#:[id number] REPORT STATUS: Signed DATE:02/04/24 TIME: 2227 PATIENT: KAMLESH GALINDO UNIT #: [id number] ROOM/BED: : 04 AGE: 18 SEX: F PCP PHYS: No Primary or Family Physician SERVICE AUTHOR: Raymond Suarez DO LOCATION: [facility] REP SRV REP SRV TM: 2227 * [...] # (Auto) (1.0 - 3.8 K/mm3) 2.18 Bonner # (Auto) (0.1 - 0.8 K/mm3) 0.37 Eos # (Auto) (0.0 - 0.2 K/mm3) 0.11 Baso # (Auto) (0.0 - 0.2 K/mm3) 0.03 Nucleated RBCs # (Man) (0.0 - 0.1 K/mm3) 0.00 Urines Urine Color (YELLOW) Light-Yellow Urine Appearance (CLEAR) Clear Urine pH (5.0 - 9.0) 7.0 Ur Specific Stout (1.003 - 1.030) 1.029 Urine Protein (NEGATIVE [...] Instructions ED Abdominal Pain Adult Departure Forms [place] [facility] at [address] [place] [address] #:[id number] END OF [id number] 00:00:00 Familia Bee [facility]2024-10-12 16:56:00 Regarding: busted inner corner of lip x 2 days in pain ----- Message from Riam Zaldivar sent at 01/01/2024 4:54 PM CDT ----- Kamlesh Galindo is a 18 year old female [place] Ann, pt aunt is calling stating the pt busted the inside corner of their lip about 2 days ago and it doesn't look infected but the pt is in pain and unsure if they should be seen or not, UC declined. [facility] Whiting [facility] 16:56:00 Grandmother of patient calling, patient not with her. Will call back when she is with patient. Maida Whiting BSN, RN Reason for Disposition Second attempt to contact caller AND no contact made. Phone number verified. Protocols used: No Contact or Duplicate Contact [id number] [place] [id number] 10:06:44 Rx resent to pharmacy as requested. Rosy Fleming RN 11/26/2023 10:06 AM [place] [id number] 20:52:48 Kamlesh Galindo is a 18 year [...] that clinic needed to resend. Thank you. [facility]/pharmacy #[id number] - [place], [place] - [facility] [address] [facility]St[facility]vuv[facility]5048[facility] 00:00:00 Familia Bee [facility]2019-10-17 11:45:00 [facility] ([facility]) EMERGENCY PROVIDER REPORT REPORT#:[id number] REPORT STATUS: Signed DATE:01/05/19 TIME: 114 PATIENT: KAMLESH GALINDO UNIT #: [id number] ROOM: BED: AGE: 13 SEX: F PCP [...] Text ROS Notes 13 y/o [place]F from [facility] presents with a wound where a friend [...] worsens. Patient guardian understood. at 1156 RPT #:[id number] END OF REPORTHCANW
[2024-12-09 21:07] LABS: Absolute Lymphocytes (CBC) 2.4 K/uL (0.7-4.9); Hematocrit 35.1 % (36.0-45.0); Hemoglobin 11.9 g/dL (12.0-15.0); MCH 26.7 pg (27.0-35.0); MCHC 33.9 g/dL (32.0-36.0); MCV 78.7 fL (80-100); MPV 10.7 fL (7.6-11.3); Nucleated RBC Absolute Count 0.0 (0-0); Nucleated Red Blood Cells % 0.0 % (0-0); RBC Red Blood Cell Count 4.46 M/uL (3.86-4.86); White Blood Count 10.10 thou/uL (4.3-10.9)
[2024-12-09 21:17] LABS: PT Prothrombin Time 12.9 SECONDS (10-13.0); PTT, Activated Partial Thromb 34.4 SECONDS (27.2-37.4); Protime INR 1.15
[2024-12-09 21:44] LABS: ALT/SGPT 20 U/L (13-56); AST/SGOT 14 U/L (15-37); Albumin 3.3 g/dL (3.4-5.0); Albumin/Globulin Ratio 0.8 (1.1-1.8); Alkaline Phosphatase 75 U/L (45-117); Anion Gap 9.9 mEq/L (5.0-15.0); BUN Blood Urea Nitrogen 19 mg/dL (7-18); Globulin 4.0 g/dL (2.3-3.5); Glucose Level 103 mg/dL (74-106); METHAMPHETAM NEGATIVE (NEGATIVE); Potassium 3.9 mEq/L (3.5-5.1); THC Cannibis NEGATIVE (NEGATIVE)
[2024-12-09 21:45] LABS: Bilirubin Indirect, Calculated 0.1 mg/dL (0.2-0.8)
--- NOTE | 2024-12-09 22:05 | ER ---
Nurse's Notes [facility] Name: Tere Galindo Age: 19 yrs Sex: Female : 2005 Arrival Date: 12/09/2024 Time: 20:18 Bed 14 Private MD: Diagnosis: Suicidal ideations Presentation: 12/09 20:21 Chief complaint: Patient states: pt is been having suicidal ideation. accompanied by [address] with [employer]. Coronavirus screen: Client denies travel out of the [place] in the last 14 days. Ebola Screen: Patient negative for fever greater than or equal to 101.5 degrees Fahrenheit, and additional compatible Ebola Virus Disease symptoms Patient denies exposure to infectious person. Patient denies travel to an Ebola-affected area in the 21 days before illness onset. Initial Sepsis Screen: Does the patient meet any 2 criteria? No. Patient's initial sepsis screen is negative. Does the patient have a suspected source of infection? No. Patient's initial sepsis screen is negative. Risk Assessment: Do you want to hurt yourself or someone else? Patient reports desire/thoughts of hurting themselves or someone else. Provider notified. 20:21 Method Of Arrival: Other [facility] 21:45 Acuity: DWAYNE 2 [facility] 21:47 Onset of symptoms is unknown. [facility] Triage Assessment: 20:21 General: Appears in no apparent distress. comfortable, Behavior is calm, cooperative, ss12 quiet. Pain: Denies pain. EENT: No deficits noted. No signs and/or symptoms were reported regarding the EENT system. Neuro: No deficits noted. Level of Consciousness is awake, alert, obeys commands, Oriented to person, place, time, situation. Cardiovascular: No deficits noted. Reports None Capillary refill < 3 seconds Patient's skin is warm and dry. Respiratory: No deficits noted. Airway is patent Respiratory effort is even, unlabored, Respiratory pattern is regular, symmetrical. GI: No deficits noted. No signs and/or symptoms were reported involving the gastrointestinal system. : No deficits noted. No signs and/or symptoms were reported regarding the genitourinary system. Derm: No deficits noted. No signs and/or symptoms reported regarding the dermatologic system. Musculoskeletal: No deficits noted. No signs and/or symptoms reported regarding the musculoskeletal system. ROUTE AGENT: 20:21 unknown [facility] Historical: - Allergies: 21:47 No Known Allergies; ss12 - Home Meds: 21:47 buspirone 10 mg Oral capsule 1 cap 2 times per day [Active]; levothyroxine 100 mcg ss12 tablet 1 tab daily [Active]; trazodone 50 mg Oral tablet 1 tab every day at bedtime [Active]; sertraline 100 mg Oral tablet 1 tab daily [Active]; oxcarbazepine 300 mg Oral tablet 1 tab twice a day [Active]; - PMHx: 21:47 Anxiety; Depression; Schizophrenia; Hypothyroidism; Bipolar disorder; PTSD; multiple ss12 personality disorder (PTSD); - Immunization history:: Adult Immunizations unknown. - Infectious Disease History:: Denies. - Social history:: Smoking status: Patient denies any tobacco usage or history of. Screenin:21 [facility] ED Fall Risk Assessment (Adult) History of falling in the last 3 months, ss12 including since admission No falls in past 3 months (0 pts) Confusion or Disorientation No (0 pts) Intoxicated or Sedated Impaired Gait No (0 pts) Mobility Assist Device Used No (0 pt) Altered Elimination No (0 pt) Score/Fall Risk Level 0 - 2 = Low Risk Oriented to surroundings, Maintained a safe environment, Educated pt \\T\\ family on fall prevention, incl call for assistance when getting out of bed, Assessed \\T\\ reinforced patient's understanding of fall precautions. Abuse screen: Denies threats or abuse. Denies injuries from another. Nutritional screening: No deficits noted. Tuberculosis screening: No symptoms or risk factors identified. Assessment: 20:21 Reassessment: see triage assessment. 12 21:20 Reassessment: Patient appears in no apparent distress at this time. Patient and/or ss12 family updated on plan of care and expected duration. Pain level reassessed. Patient is alert, oriented x 3, equal unlabored respirations, skin warm/dry/pink. 22:21 Reassessment: Patient appears in no apparent distress at this time. Patient and/or ss12 family updated on plan of care and expected duration. Pain level reassessed. Patient is alert, oriented x 3, equal unlabored respirations, skin warm/dry/pink. Psych: 20:21 [place] Suicide Severity Screening: In the past month, have you wished you were ss12 or wished you could go to sleep and not wake up? Patient responds "yes." "In the past month, have you actually had any thoughts of killing yourself?" Patient responds "yes." "In your lifetime, have you ever done anything, started to do anything, or prepared to do anything to end your life?" Patient responds "yes." Patient reports suicidal intent within 3 past months. Patient reports suicidal intent occurred greater than 3 months prior. Subjective: Patient's mood is sad, Delusions are denied, Hallucinations are denied Having thoughts of suicide. Plan for suicide is pt stated she wanted to jump in front of the moving vehichle. Objective: Patient is cooperative, Speech is normal, Affect is appropriate, Patient has mutilated themselves by superficial cut on right middle finger. Interventions: Removed personal items and placed in bag. Patient placed in hospital gown. Searched person for dangerous items. Urine collected and sent for urine drug test. Belonging list filled out. Safety Checks: Personal items have been removed. Door is open. No visitors are present at this time. sitter present. Pt denies substance abuse. 20:21 Commitment: Patient will be an involuntary commitment. ss12 21:21 Safety Checks: Door is open. No visitors are present at this time. sitter present. ss12 22:20 Safety Checks: Door is open. No visitors are present at this time. sitter present. ss12 Vital Signs: 20:21 BP 135 / 69; Pulse 76; Resp 18; Temp 97.5; Pulse Ox 97% on R/A; ss12 ED Course: 20:20 Patient arrived in ED. im 20:20 Lopez Kaufman [facility]-C [facility]. cp 20:20 Hector Conde DO is Attending Physician. cp 20:21 Silvano Schaefer, RN is Primary Nurse. ss12 20:21 Arm band placed on right wrist. ss12 20:21 Patient has correct armband on for positive identification. ss12 20:21 Inserted saline lock: 22 gauge in left antecubital area, using aseptic technique. Blood ss12 collected. Flushed with 10 mL NS. 20:21 No provider procedures requiring assistance completed. ss12 20:30 FAXED PT CLINICAL'S TO [facility]. kmf 21:14 EKG done, by technical support representative. reviewed by Lopez Kaufman PA-C. ts3 21:22 Acetaminophen Sent. ss12 21:22 Basic Metabolic Panel Sent. ss12 21:22 ETOH Level Sent. ss12 21:22 Hepatic Function Sent. ss12 21:22 Salicylate Sent. ss12 21:22 Urine Drug Screen Sent. ss12 21:46 Triage completed. ss12 21:59 IV discontinued, intact, bleeding controlled, No redness/swelling at site. Pressure 12 dressing applied. 23:03 Provided Education on: plan of care . 12 Administered Medications: No medications were administered Medication: 20:21 VIS not applicable for this client. ss12 Outcome: 22:05 ER care complete, transfer ordered by . cp 22:59 Patient left the ED. 1 22:59 Discharge instructions given to EMS, 12 :59 Transferred by ground EMS Note: [facility] 12 22:59 Condition: stable 22:59 Discharge instructions given to EMS, Signatures: Lopez Kaufman PA-C PA-C cp Calcote, Vanessa, RN RN vc1 Lisa Aponte Kelsey Maroul [facility] Gisel Orozco ts3 Silvano Schaefer, RN RN 12 Corrections: (The following items were deleted from the chart) 23:04 23:03 PMHx: Auditory and Visual Hallucinations; [place] [address] 23:04 23:03 PMHx: Asthma; [place] [address] 23:04 20:21 PSHx: abdominal; [place] [address] 23:08 23:04 Condition: stable [place] [address] 23:08 23:04 Transferred by ground EMS [place] [address] 23:09 22:21 Reassessment: see triage assessment [place] [address]
--- NOTE | 2024-12-09 22:05 | EDPHYS ---
Physician Documentation [facility] Name: Tere Galindo Age: 19 yrs Sex: Female : 2005 Arrival Date: 12/09/2024 Time: 20:18 Bed 14 Private MD: ED Physician Hector Conde HPI: 12/09 20:25 This 19 yrs old Female presents to ER via Unassigned with complaints of cp Suicidal Ideation. 20:25 The patient presents to the emergency department with suicide ideation, and the patient cp has a plan, to walk into a car. Onset: The symptoms/episode began/occurred today. 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 - Infectious Disease History:: Denies. - Social history:: Smoking status: Patient denies any tobacco usage or history of. ROS: 20:30 Constitutional: Negative for body aches, chills, fever, poor PO intake, cp 20:30 Cardiovascular: Negative for chest pain, cp 20:30 Respiratory: Negative for cough, shortness of breath, wheezing, 20:30 Psych: Positive for depression, suicidal ideation, 20:30 All other systems are negative, Exam: 20:33 Constitutional: The patient appears in no acute distress, alert, awake, non-toxic, well cp developed, well nourished, obese, 20:33 Head/Face: Normocephalic, atraumatic. cp 20:33 Eyes: Periorbital structures: appear normal, Conjunctiva: normal, no exudate, no injection, Sclera: no appreciated abnormality, Lids and lashes: appear normal, bilaterally, 20:33 ENT: External ear(s): are unremarkable, Nose: is normal, Mouth: Lips: moist, Oral mucosa: moist, Posterior pharynx: Airway: no evidence of obstruction, patent, 20:33 Chest/axilla: Inspection: normal, 20:33 Cardiovascular: Rate: normal, 20:33 Respiratory: the patient does not display signs of respiratory distress, Respirations: normal, no use of accessory muscles, no retractions, labored breathing, is not present, 20:33 Abdomen/GI: Inspection: obese Palpation: abdomen is soft and non-tender, in all quadrants, 20:33 Back: pain, is absent, 20:33 Neuro: Orientation: to person, place \T\ time. Mentation: is normal, Cerebellar function: is grossly normal, Motor: moves all fours, strength is normal, Sensation: is normal, 21:15 ECG was reviewed by the Attending Physician. cp Vital Signs: 20:21 BP 135 / 69; Pulse 76; Resp 18; Temp 97.5; Pulse Ox 97% on R/A; ss12 MDM: 20:21 Medical Screening Exam initiated cp 21:00 Differential diagnosis: drug withdrawal. acute psychotic break, depression, psychosis cp secondary to non-compliance. 22:05 Independent interpretation of the following test(s) in the Emergency Department EKG: cp See my EKG interpretation above. 22:05 Counseling: I had a detailed discussion with the patient and/or guardian regarding the cp historical points, exam findings, and any diagnostic results supporting the discharge/admit diagnosis, lab results, to return to the emergency department if symptoms worsen or persist or if there are any questions or concerns that arise at home. 22:36 Data reviewed: vital signs, nurses notes, lab test result(s), CBC, drug level(s), tt7 electrolytes, hepatic panel, urine drug screen. ED course: This is a 19-year-old female who came into the emergency department [facility] due to suicidal ideations with a plan to run into traffic and get hit by a car, on my assessment patient is resting comfortably in bed with stable vital signs, and no acute distress, she has a depressed mood with a flat affect, she is medically stable and has been accepted for psychiatric placement at [facility]. 12/09 20:21 Order name: Acetaminophen; Complete Time: 22:03 12/09 22:03 Interpretation: Reviewed. 12/09 20: Order name: Basic Metabolic Panel; Complete Time: 22:03 cp 12/09 22:03 Interpretation: Normal except: BUN 19. cp 12/09 20: Order name: CBC with Diff; Complete Time: 22:03 12/09 22:04 Interpretation: Normal except: HGB 11.9; HCT 35.1; MCV 78.7; MCH 26.7. cp 12/09 20: Order name: ETOH Level; Complete Time: 22:03 cp 12/09 20:21 Order name: Hepatic Function; Complete Time: 22:03 12/09 22:04 Interpretation: Normal except: AST 14; IBILI, CALC 0.1; ALB 3.3; GLOB 4.0; A/G 0.8. 12/09 20: Order name: PT-INR; Complete Time: 22:03 12/09 20:21 Order name: Test, Urine; Complete Time: 22:03 12/09 20:21 Order name: Ptt, Activated; Complete Time: 22:03 12/09 20:21 Order name: Salicylate; Complete Time: 22:03 12/09 20:21 Order name: Urine Drug Screen; Complete Time: 22:03 12/09 22:04 Interpretation: Reviewed. 12/09 20: Order name: EKG - Nurse/Tech; Complete Time: 21:13 cp 12/09 20:21 Order name: IV Saline Lock; Complete Time: 21:13 12/09 20:21 Order name: Labs collected and sent; Complete Time: 21:13 12/09 20:21 Order name: Suicide Precautions; Complete Time: 21:14 12/09 20:21 Order name: Suicide Screening ([place]); Complete Time: 21:22 cp EC:15 Rate is 67 beats/min. Rhythm is regular. MI interval is normal. QRS interval is normal. cp QT interval is normal. T waves are Inverted in lead aVR. Interpreted by me. Reviewed by me. Administered Medications: No medications were administered Disposition: 22:39 Co-signature as Attending Physician, Hector Conde DO PA/LEGAL NURSE CONSULTANT's history reviewed, tt7 patient interviewed, and examined. I agree with assessment and care plan and confirm the diagnosis (es) above. Disposition Summary: 12/09/24 22:05 Transfer Ordered Notes: Transfer Location: Psych Facility cp Reason: Higher level of care cp Condition: Stable cp Problem: new cp Symptoms: have improved cp Accepting Physician: Doctor(12/09/24 22:59) vc1 Diagnosis - Suicidal ideations cp Forms: - Medication Reconciliation Form cp - SBAR form cp Signatures: Dispatcher [employer] EDMS Lopez Kaufman PA-C PA-C cp Calcote, Vanessa RN RN vc1 Silvano Schaefer RN RN ss12 Hector Conde DO DO tt7 Corrections: (The following items were deleted from the chart) 20:21 20:21 ACETAMINOPHEN+C.LAB.BRZ ordered. EDMS EDMS 20:21 20:21 BASIC METABOLIC PANEL+C.LAB.BRZ ordered. EDMS EDMS 20:21 20:21 CBC+H.LAB.BRZ ordered. EDMS EDMS 20:21 20:21 ETHANOL+C.LAB.BRZ ordered. EDMS EDMS 20:21 20:21 HEPATIC FUNCTION+C.LAB.BRZ ordered. EDMS EDMS 20:21 20:21 PROTIME (+INR)+COAG.LAB.BRZ ordered. EDMS EDMS 20:21 20:21 Test, Urine+UC.LAB.BRZ ordered. EDMS EDMS 20:21 20:21 PTT, ACTIVATED+COAG.LAB.BRZ ordered. EDMS EDMS 20:21 20:21 SALICYLATE+C.LAB.BRZ ordered. EDMS EDMS 20:21 20:21 URINE DRUG SCREEN+UC.LAB.BRZ ordered. EDMS EDMS 22:59 22:05 Doctor cp vc1 23:04 23:03 PMHx: Auditory and Visual Hallucinations; ss12 ss12 23:04 23:03 PMHx: Asthma; ss12 ss12 23:04 20:21 PSHx: abdominal; ss12 ss12
[2024-12-09 23:06] VITALS: BP 135/69; TEMP 97.5; O2SAT 97
== END 2024-12-09 22:59 ==
LOC: ER 20:18
DX: R45.851 Suicidal ideations (principal); F31.9 Bipolar disorder, unspecified; F20.9 Schizophrenia, unspecified; F43.10 Post-traumatic stress disorder, unspecified; E03.9 Hypothyroidism, unspecified
CPT/HCPCS: 36415; 80048; 80076; 80143; 80179; 80307; 81025; 82077; 85025; 85610; 85730; 93005; 99285